=== PATIENT | female | born 1945 | race Caucasian/White ===

== ENCOUNTER 2020-05-02 07:06 | Day surgery (SDC) | payer MEDICARE, SELFPAY ==
[2020-04-27 14:08] VITALS: BMI 22.3
--- NOTE | 2020-04-28 07:51 | MHC.SHP ---
Pre-Procedural Eval Section A The patient is an INPATIENT: No The History & Physical has been completed within 30 days and I have reviewed it.: Yes Section B Chief Complaint: Cataract Right Eye Allergies: Allergies Allergy/AdvReac Type Severity Reaction Status Date / Time Penicillins [PENICILLINS] Allergy Unknown RASH Verified 04/27/20 14:11 Plan Diagnosis/Plan: Unchanged Patient has been examined and remains a candidate for the planned procedure
--- NOTE | 2020-04-29 09:16 | HO.ANESPROP2 ---
Documented by User: Rosalba Gandhi 04/29/20 14:06 HPI - Anesthesia Eval Consult details Narrative: 74yo F for cataract PCP cleared [facility] Past Medical History Medical History Elevated cholesterol Family history of anesthesia complication HTN (hypertension) Osteoporosis Functional capacity: independent ambulation (daily exercise for 30-45min without CP/SOB) Surgical History Surgical History Hx of colonoscopy Hx of rotator cuff surgery Hx of tonsillectomy Hx of tubal ligation Social History Social History Smoking Status: Former smoker Smoked in Last 30 Days: No Smoking Quit Date: age23 Use of substances other than those prescribed or required for medical reasons: No Have you been hit, kicked, punched, or otherwise hurt by someone within the past year? If so, by whom?: No Advance Directives Information Provided: No Recently lost weight without trying: No Meds Allergies Allergy/AdvReac Type Severity Reaction Status Date / Time Penicillins [PENICILLINS] Allergy Unknown RASH Verified 04/27/20 14:11 Home Medications Medication Instructions Recorded Confirmed Type alendronate [Fosamax] 70 mg PO QWEEK 04/27/20 04/27/20 History atorvastatin 20 mg PO BEDTIME 04/27/20 04/27/20 History cholecalciferol (vitamin D3) 25 mcg PO QPM 04/27/20 04/27/20 History [Vitamin D3] irbesartan 1 tab PO DAILY 04/27/20 04/27/20 History loratadine [Claritin] 10 mg PO DAILY PRN 04/27/20 04/27/20 History [id number] 1 tab PO DAILY 04/27/20 04/27/20 History [Centrum Silver] Exam Exam Date and Time: April 29, 2020 0916 Height,Weight and Vital Signs: Height 5 ft 4 in Weight 58.967 kg Pertinent Lab Results Pertinent Lab Results: 04/27/20: CBC, Lytes, BUN, Creat all WNL Assessment and Plan Assessment Anesthesia Assessment: Chart Reviewed Documented by User: Ghada Reich 05/02/20 07:57 PMF Past Medical History Medical History Elevated cholesterol Family history of anesthesia complication HTN (hypertension) Osteoporosis Surgical History Surgical History Hx of colonoscopy Hx of rotator cuff surgery Hx of tonsillectomy Hx of tubal ligation Social History Social History Smoking Status: Former smoker Smoked in Last 30 Days: No Smoking Quit Date: age23 Use of substances other than those prescribed or required for medical reasons: No Have you been hit, kicked, punched, or otherwise hurt by someone within the past year? If so, by whom?: No Advance Directives Information Provided: No Recently lost weight without trying: No Meds Allergies Allergy/AdvReac Type Severity Reaction Status Date / Time Penicillins [PENICILLINS] Allergy Unknown RASH Verified 04/27/20 14:11 Home Medications Medication Instructions Recorded Confirmed Type alendronate [Fosamax] 70 mg PO QWEEK 04/27/20 04/27/20 History atorvastatin 20 mg PO BEDTIME 04/27/20 04/27/20 History cholecalciferol (vitamin D3) 25 mcg PO QPM 04/27/20 04/27/20 History [Vitamin D3] irbesartan 1 tab PO DAILY 04/27/20 04/27/20 History loratadine [Claritin] 10 mg PO DAILY PRN 04/27/20 04/27/20 History [id number] 1 tab PO DAILY 04/27/20 04/27/20 History [Centrum Silver] Exam Airway Mallampati Class: II TM Dist: >3cm Neck ROM: Full Heart: RRR Lungs: CTA BL Assessment and Plan Final Anesthetic Review NPO: Yes ASA Class: II Final Preanesthetic Review: Meds/Allgs Chart Reviewed and Consent Obtained/Reviewed Patient Risk: Intermediate Procedure Risk: Low Anesthetic Plan Anesthetic Plan: MAC: Disposition: Standard PACU
[2020-05-02 07:50] VITALS: BP 186/78; PULSE 76; RESP 16; TEMP 36.9; O2SAT 98
[2020-05-02] MEDS: Tetracaine HCl/PF 0.5% Oph Sol 4 ML DROPS 1 DROP EYE-RIGHT (08:04)
[2020-05-02] MEDS: Tropicamide 1 % Ophth Sol 3 ML BTL 1 DROP EYE-RIGHT ×3 (08:07→08:16)
[2020-05-02] MEDS: Lactated Ringers 500 ML 50 ML IV (08:08)
--- NOTE | 2020-05-02 08:47 | HO.PNOPHT ---
Ophthalmology Procedure Procedure Ophthalmology Viscoelastic: Beverly Breaux Dual Pack Pro Ophthalmology Lenses: TECNIS [id number] (17.5) Procedure Notes: PREOPERATIVE DIAGNOSIS: Decreased visual acuity right eye secondary to cataract POSTOPERATIVE DIAGNOSIS: Same PROCEDURE: Right cataract extraction with intraocular lens insertion SURGEON: Jaquan Flanagan M.D. ANESTHESIA: Topical/MAC ESTIMATED BLOOD LOSS: None COMPLICATIONS: None After obtaining informed consent, the patient was brought to the operating room suite and placed in the supine position. After adequate sedation per anesthesia, topical drops of Tetracaine were given to the right eye. The eye was then prepped and draped in the usual sterile fashion. The operating room microscope was then positioned over the operative eye and a lid speculum placed. A paracentesis was created. Viscoelastic was then instilled into the anterior chamber. A three plane incision was then created temporally, utilizing a 2.85 mm keratome. Capsulotomy forceps were then utilized to create a circular tear capsulotomy. Hydrodissection and hydrodelineation were carried out until adequate mobilization of the nucleus occurred. Phacoemulsification was then utilized to remove the dense central nucleus followed by removal of the cortical material utilizing the automated aspiration irrigation unit. Viscoelastic was instilled into the posterior capsular bag followed by placement of a posterior chamber intraocular lens without difficulty. The residual Viscoelastic was then removed utilizing the automated IA machine. The wound was checked and found to be watertight. The patient tolerated the procedure well and the lid speculum was removed. Intracameral injection of Vigamox 0.1 mL followed by a subtenon injection of Kenalog-40 0.2 mL were administered. The patient will be seen in the a.m.
== END 2020-05-02 09:15 | disposition home or self-care (01) ==
PROVIDERS: PCP Internal Medicine; Visit Provider Ophthalmology
PROC: (CPT 66985; principal; 2020-05-02 08:40)
DX: H25.11 Age-related nuclear cataract, right eye (principal); H54.7 Unspecified visual loss; H40.009 Preglaucoma, unspecified, unspecified eye; I10 Essential (primary) hypertension; M81.0 Age-related osteoporosis without current pathological fracture; Z79.899 Other long term (current) drug therapy; Z87.891 Personal history of nicotine dependence; Z88.0 Allergy status to penicillin
CPT/HCPCS: 66984; J2250; J3010; J3300; V2632

== ENCOUNTER 2020-05-16 06:37 | Day surgery (SDC) | payer MEDICARE, SELFPAY ==
--- NOTE | 2020-05-12 08:15 | MHC.SHP ---
Pre-Procedural Eval Section A The patient is an INPATIENT: No The History & Physical has been completed within 30 days and I have reviewed it.: Yes Section B Chief Complaint: Cataract Left Eye Allergies: Allergies Allergy/AdvReac Type Severity Reaction Status Date / Time Penicillins [PENICILLINS] Allergy Unknown RASH Verified 04/27/20 14:11 Plan Diagnosis/Plan: Unchanged Patient has been examined and remains a candidate for the planned procedure
--- NOTE | 2020-05-13 08:43 | HO.ANESPROP2 ---
Documented by User: Rosalba Gandhi 05/13/20 14:02 HPI - Anesthesia Eval Consult details Narrative: 74yo F for cataract PCP cleared 1st eye 05/02/20: [facility] PENDING S[facility] TO [facility] Past Medical History Medical History Elevated cholesterol Family history of anesthesia complication HTN (hypertension) Osteoporosis Surgical History Surgical History Hx of colonoscopy Hx of rotator cuff surgery Hx of tonsillectomy Hx of tubal ligation Social History Social History Smoking Status: Former smoker Advance Directives: No Meds Allergies Allergy/AdvReac Type Severity Reaction Status Date / Time Penicillins [PENICILLINS] Allergy Unknown RASH Verified 04/27/20 14:11 Home Medications Medication Instructions Recorded Confirmed Type alendronate [Fosamax] 70 mg PO QWEEK 04/27/20 04/27/20 History atorvastatin 20 mg PO BEDTIME 04/27/20 04/27/20 History cholecalciferol (vitamin D3) 25 mcg PO QPM 04/27/20 04/27/20 History [Vitamin D3] irbesartan 1 tab PO DAILY 04/27/20 04/27/20 History loratadine [Claritin] 10 mg PO DAILY PRN 04/27/20 04/27/20 History [id number]-[id number]-[id number] 1 tab PO DAILY 04/27/20 04/27/20 History [Centrum Silver] Exam Exam Date and Time: May 13, 2020 0843 Pertinent Lab Results Pertinent Lab Results: 04/27/20: CBC, Lytes, BUN, Creat all WNL Assessment and Plan Assessment Anesthesia Assessment: Chart Reviewed Documented by User: Ghada Reich 05/16/20 07:22 PENDING SALE TO [facility] Past Medical History Medical History Elevated cholesterol Family history of anesthesia complication HTN (hypertension) Osteoporosis Surgical History Surgical History Hx of colonoscopy Hx of rotator cuff surgery Hx of tonsillectomy Hx of tubal ligation Social History Social History Smoking Status: Former smoker Advance Directives: No Meds Allergies Allergy/AdvReac Type Severity Reaction Status Date / Time Penicillins [PENICILLINS] Allergy Unknown RASH Verified 04/27/20 14:11 Home Medications Medication Instructions Recorded Confirmed Type alendronate [Fosamax] 70 mg PO QWEEK 04/27/20 04/27/20 History atorvastatin 20 mg PO BEDTIME 04/27/20 04/27/20 History cholecalciferol (vitamin D3) 25 mcg PO QPM 04/27/20 04/27/20 History [Vitamin D3] irbesartan 1 tab PO DAILY 04/27/20 04/27/20 History loratadine [Claritin] 10 mg PO DAILY PRN 04/27/20 04/27/20 History [id number]-xiqfwmlg-[id number] 1 tab PO DAILY 04/27/20 04/27/20 History [Centrum Silver] Exam Airway Mallampati Class: II TM Dist: >3cm Neck ROM: Full Heart: RRR Lungs: CTA BL Assessment and Plan Assessment Anesthesia Assessment: Anesthesia Plan Discussed and Chart Reviewed Final Anesthetic Review NPO: Yes ASA Class: II Final Preanesthetic Review: Meds/Allgs Chart Reviewed and Consent Obtained/Reviewed Patient Risk: Low Procedure Risk: Low Anesthetic Plan Anesthetic Plan: MAC: Disposition: Standard PACU
[2020-05-16] MEDS: Tetracaine HCl/PF 0.5% Oph Sol 4 ML DROPS 1 DROP EYE-LEFT (07:31)
[2020-05-16] MEDS: Tropicamide 1 % Ophth Sol 3 ML BTL 1 DROP EYE-LEFT ×3 (07:33→07:40)
[2020-05-16 07:46] VITALS: BMI 23.2
[2020-05-16 07:50] VITALS: BP 168/83; PULSE 81; RESP 20; TEMP 36.3; O2SAT 97
--- NOTE | 2020-05-16 08:41 | HO.PNOPHT ---
Ophthalmology Procedure Procedure Ophthalmology Viscoelastic: Healjulian Astorgat Dual Pack Pro Ophthalmology Lenses: TECNIS [id number] (20.5) Procedure Notes: PREOPERATIVE DIAGNOSIS: Decreased visual acuity left eye secondary to cataract POSTOPERATIVE DIAGNOSIS: Same PROCEDURE: Left cataract extraction with intraocular lens insertion SURGEON: Jaquan Flanagan M.D. ANESTHESIA: Topical/MAC ESTIMATED BLOOD LOSS: None COMPLICATIONS: None After obtaining informed consent, the patient was brought to the operation room suite and placed in the supine position. After adequate sedation per anesthesia, topical drops of Tetracaine were given to the left eye. The eye was then prepped and draped in the usual sterile fashion. The operating room microscope was then positioned over the operative eye and a lid speculum placed. A paracentesis was created. Viscoelastic was then instilled into the anterior chamber. A three plane incision was then created temporally, utilizing a 2.85 mm keratome. Capsulotomy forceps were then utilized to create a circular tear capsulotomy. Hydrodissection and hydrodelineation were carried out until adequate mobilization of the nucleus occurred. Phacoemulsification was then utilized to remove the dense central nucleus followed by removal of the cortical material utilizing the automated aspiration irrigation unit. Viscoat elastic was instilled into the posterior capsular bag followed by placement of a posterior chamber intraocular lens without difficulty. The residual Viscoat elastic was then removed utilizing the automated IA machine. The wound was check and found to be watertight. The patient tolerated the procedure well and the lid speculum was removed. Intracameral injection of Vigamox 0.1 mL followed by a subtenon injection of Kenalog-40 0.2 mL were administered. The patient will be seen in the a.m.
[2020-05-16 08:43] VITALS: BP 133/64; PULSE 68; RESP 16; TEMP 36.1; O2SAT 99
== END 2020-05-16 09:28 | disposition home or self-care (01) ==
PROVIDERS: PCP Internal Medicine; Visit Provider Ophthalmology
PROC: (CPT 66985; principal; 2020-05-16 08:30)
DX: H25.12 Age-related nuclear cataract, left eye (principal); H54.7 Unspecified visual loss; I10 Essential (primary) hypertension; M81.0 Age-related osteoporosis without current pathological fracture; Z83.511 Family history of glaucoma; Z79.899 Other long term (current) drug therapy; Z88.0 Allergy status to penicillin; Z87.891 Personal history of nicotine dependence
CPT/HCPCS: 66984; J2250; J3010; J3300; V2632

== ENCOUNTER 2020-08-10 07:02 | Outpatient (REF) | payer MEDICARE, SELFPAY ==
[2020-08-10 11:22] LABS: Hematocrit 40.8 % (37-47); Hemoglobin 13.7 g/dl (12.0-16.0); Mean Corpuscular HGB Conc 33.6 g/dl (31.0-35.0); Mean Corpuscular Hemoglobin 31.7 pg (27.0-33.0); Mean Corpuscular Volume 94.4 fL (80-98); Mean Platelet Volume 11.1 fL (9.4-12.3); Platelet Count 252 X10*3/uL (160-400); Red Blood Count 4.32 X10*6/uL (4.20-5.50); White Blood Count 7.1 X10*3/uL (4.8-10.8)
[2020-08-10 11:22] LABS: Glucose Urine UA NEG (NEG); Leukocyte Esterase Urine NEG (NEG); Nitrite Urine NEG (NEG); PH 7.5 (5.0-8.0); Urine Blood NEG (NEG); Urine Ketones NEG (NEG); Urine Protein NEG (NEG-TRACE)
[2020-08-10 11:24] LABS: Appearance Urine CLEAR; Color Urine YELLOW
[2020-08-10 11:42] LABS: RBC Urine 0 /HPF (0); Squamous Epithelial Cell Urine TRACE /LPF; WBC Urine 0 /HPF (0-4)
[2020-08-10 12:00] LABS: Alanine Aminotransferase 24 U/L (0-31); Albumin Level 4.4 g/dL (3.5-5.0); Alkaline Phosphatase 70 U/L (39-117); Anion Gap 14 (12-20); Aspartate Amino Transferase 24 U/L (5-31); Bilirubin Total 0.9 mg/dL (0.0-1.0); Blood Urea Nitrogen 11 mg/dL (9-16); Carbon Dioxide 27 mmol/L (22-29); Chloride 95 mmol/L (96-108); Cholesterol 207 mg/dL; Estimated Glomerular Filt Rate > 60; Glucose Fasting 77 mg/dL (60-99); HDL Cholesterol 85 mg/dL; LDL Cholesterol Calculated 107 mg/dl; Potassium 4.2 mmol/L (3.3-5.1); Sodium 132 mmol/L (135-145); Total Protein 7.1 g/dL (6.5-8.0); Triglycerides 78 mg/dL
[2020-08-10 12:05] LABS: TSH reflex Free T4 1.52 uIU/mL (0.32-4.0); Vitamin D 25-OH Total 54.3 ng/mL (>30)
== END 2020-08-10 07:03 | disposition home or self-care (01) ==
LOC: HO.HMGCLDS 07:02
PROVIDERS: PCP Internal Medicine; Visit Provider Internal Medicine
DX: I10 Essential (primary) hypertension (principal); M81.0 Age-related osteoporosis without current pathological fracture; E78.00 Pure hypercholesterolemia, unspecified; E55.9 Vitamin D deficiency, unspecified
CPT/HCPCS: 36415; 80053; 80061; 81001; 82306; 84443; 85027

== ENCOUNTER 2020-09-02 07:12 | Outpatient (REF) | payer MEDICARE, SELFPAY ==
[2020-09-02 12:28] LABS: Anion Gap 14 (12-20); Blood Urea Nitrogen 10 mg/dL (9-16); Carbon Dioxide 28 mmol/L (22-29); Chloride 99 mmol/L (96-108); Estimated Glomerular Filt Rate > 60; Glucose Random 83 mg/dL (60-115); Potassium 4.3 mmol/L (3.3-5.1); Sodium 137 mmol/L (135-145)
== END 2020-09-02 07:13 | disposition home or self-care (01) ==
LOC: HO.HMGCLDS 07:12
PROVIDERS: PCP Internal Medicine; Visit Provider Internal Medicine
DX: E87.1 Hypo-osmolality and hyponatremia (principal)
CPT/HCPCS: 36415; 80048

== ENCOUNTER 2020-12-16 07:35 | Outpatient (REF) | payer MEDICARE, SELFPAY ==
[2020-12-16 12:36] LABS: Anion Gap 14 (12-20); Blood Urea Nitrogen 10 mg/dL (9-16); Calcium 8.8 mg/dL (8.4-10.2); Carbon Dioxide 25 mmol/L (22-29); Chloride 100 mmol/L (96-108); Estimated Glomerular Filt Rate > 60; Glucose Random 80 mg/dL (60-115); Potassium 4.6 mmol/L (3.3-5.1); Sodium 134 mmol/L (135-145)
== END 2020-12-16 07:36 | disposition home or self-care (01) ==
LOC: HO.HMGCLDS 07:35
PROVIDERS: PCP Internal Medicine; Visit Provider Internal Medicine
DX: E87.1 Hypo-osmolality and hyponatremia (principal); E78.00 Pure hypercholesterolemia, unspecified; I10 Essential (primary) hypertension; M81.0 Age-related osteoporosis without current pathological fracture
CPT/HCPCS: 36415; 80048

== ENCOUNTER 2021-03-28 14:58 | Outpatient (REF) | payer MEDICARE, SELFPAY ==
[2021-03-28 17:00] LABS: MANUAL DIFF FLAG NO
[2021-03-28 17:06] LABS: Basophils Percent Auto 0.5 % (0-2); Eosinophils Absolute Auto 0.1 X10*3/uL (0.0-0.4); Eosinophils Percent Auto 0.6 % (0-4); Hematocrit 39.4 % (37-47); Hemoglobin 13.2 g/dl (12.0-16.0); Imm Gran Abs Auto 0.03 X10*3/uL (0.00-0.03); Imm Gran Pct Auto 0.4 % (0.0-0.4); Lymphocytes Absolute Auto 1.7 X10*3/uL (1.2-4.9); Lymphocytes Percent Auto 20.6 % (20-40); Mean Corpuscular HGB Conc 33.5 g/dl (31.0-35.0); Mean Corpuscular Hemoglobin 30.8 pg (27.0-33.0); Mean Corpuscular Volume 91.8 fL (80-98); Mean Platelet Volume 12.3 fL (9.4-12.3); Monocytes Absolute Auto 0.7 X10*3/uL (0.1-1.2); Monocytes Percent Auto 8.4 % (2-11); Neutrophils Absolute Auto 5.7 X10*3/uL (2.0-8.3); Neutrophils Percent Auto 69.5 % (45-73); Platelet Count 231 X10*3/uL (160-400); Red Blood Count 4.29 X10*6/uL (4.20-5.50); Red Cell Distribution Width 11.9 % (11.0-16.0); White Blood Count 8.3 X10*3/uL (4.8-10.8)
[2021-03-28 17:28] LABS: Alanine Aminotransferase 20 U/L (0-31); Albumin Level 4.4 g/dL (3.5-5.0); Alkaline Phosphatase 75 U/L (39-117); Anion Gap 14 (12-20); Aspartate Amino Transferase 22 U/L (5-31); Bilirubin Total 0.3 mg/dL (0.0-1.0); Blood Urea Nitrogen 13 mg/dL (9-16); Calcium 9.4 mg/dL (8.4-10.2); Carbon Dioxide 24 mmol/L (22-29); Chloride 100 mmol/L (96-108); Estimated Glomerular Filt Rate > 60; Glucose Random 82 mg/dL (60-115); Sodium 134 mmol/L (135-145); Total Protein 6.7 g/dL (6.5-8.0)
== END 2021-03-28 14:59 | disposition home or self-care (01) ==
LOC: HO.HMGCLDS 14:58
PROVIDERS: PCP Internal Medicine; Visit Provider Nurse Practitioner Family
DX: Z01.818 Encounter for other preprocedural examination (principal)
CPT/HCPCS: 36415; 80053; 85025

== ENCOUNTER 2021-04-04 10:29 | Outpatient (REF) | payer MEDICARE, SELFPAY ==
--- NOTE | ~2021-04-04 | MM_ITS ---
EXAMINATION: MM SCREENING DIGITAL BREAST TOMOSYNTHESIS, BILATERAL CLINICAL INFORMATION: Screening. Asymptomatic. The lifetime risk of breast cancer based on the Tyrer-Cuzick Model is 3%. COMPARISON: Outside mammography: 02/25/2020, 02/23/2019, 02/18/2018 ([place]) TECHNIQUE: Digital breast tomosynthesis is performed in both the craniocaudal and mediolateral oblique views along with computer-aided detection (CAD). Synthesized 2D images are generated from the tomosynthesis. FINDINGS: There are scattered areas of fibroglandular density (ACR BI-RADS breast composition Category b). There are no significant masses, abnormal calcifications, or other abnormalities. The axilla and skin contours are unremarkable. No significant changes from prior outside exams. MM/MM tomosynthesis screening BI IMPRESSION: There are no significant changes from prior study. ASSESSMENT: BI-RADS 1: Negative RECOMMENDATION: Routine annual mammography screening. This patient's information was entered into a reminder system with a target due date for their next mammogram.
== END 2021-04-04 10:30 | disposition home or self-care (01) ==
LOC: HO.MAMMO 10:29
PROVIDERS: Visit Provider Internal Medicine
DX: Z12.31 Encounter for screening mammogram for malignant neoplasm of breast (principal)
CPT/HCPCS: 77063; 77067

== ENCOUNTER 2021-06-21 09:57 | Outpatient (REF) | payer MEDICARE, SELFPAY ==
[2021-06-21 12:23] LABS: Anion Gap 11 (12-20); Blood Urea Nitrogen 11 mg/dL (9-16); Calcium 9.5 mg/dL (8.4-10.2); Carbon Dioxide 28 mmol/L (22-29); Chloride 98 mmol/L (96-108); Estimated Glomerular Filt Rate > 60; Glucose Random 90 mg/dL (60-115); Potassium 4.1 mmol/L (3.3-5.1); Sodium 133 mmol/L (135-145)
== END 2021-06-21 09:58 | disposition home or self-care (01) ==
LOC: HO.HMGCLDS 09:57
PROVIDERS: PCP Internal Medicine; Visit Provider Internal Medicine
DX: E87.1 Hypo-osmolality and hyponatremia (principal)
CPT/HCPCS: 36415; 80048

== ENCOUNTER 2021-11-28 06:04 | Outpatient (REF) | payer MEDICARE, SELFPAY ==
[2021-11-28 11:33] LABS: Hematocrit 40.3 % (37.0-47.0); Hemoglobin 13.4 g/dl (12.0-16.0); Mean Corpuscular HGB Conc 33.3 g/dl (31.0-35.0); Mean Corpuscular Hemoglobin 30.5 pg (27.0-33.0); Mean Corpuscular Volume 91.8 fL (80.0-98.0); Mean Platelet Volume 12.2 fL (9.4-12.3); Platelet Count 211 X10*3/uL (160-400); Red Blood Count 4.39 X10*6/uL (4.20-5.50); Red Cell Distribution Width 12.4 % (11.0-16.0); White Blood Count 5.9 X10*3/uL (4.8-10.8)
[2021-11-28 11:44] LABS: Alanine Aminotransferase 21 U/L (0-31); Albumin Level 4.2 g/dL (3.5-5.0); Alkaline Phosphatase 77 U/L (39-117); Anion Gap 12 (12-20); Aspartate Amino Transferase 24 U/L (5-31); Bilirubin Total 0.5 mg/dL (0.0-1.0); Blood Urea Nitrogen 11 mg/dL (9-16); Calcium 9.5 mg/dL (8.4-10.2); Carbon Dioxide 27 mmol/L (22-29); Chloride 101 mmol/L (96-108); Cholesterol 177 mg/dL; Estimated Glomerular Filt Rate > 60; Glucose Fasting 92 mg/dL (60-99); HDL Cholesterol 69 mg/dL; LDL Cholesterol Calculated 93 mg/dl; Potassium 4.8 mmol/L (3.3-5.1); Sodium 135 mmol/L (135-145); Total Protein 6.9 g/dL (6.5-8.0); Triglycerides 79 mg/dL
[2021-11-28 12:07] LABS: TSH reflex Free T4 1.64 uIU/mL (0.32-4.0); Vitamin D 25-OH Total 37.2 ng/mL (>30)
== END 2021-11-28 06:05 | disposition home or self-care (01) ==
LOC: HO.HMGCLDS 06:04
PROVIDERS: Visit Provider Internal Medicine
DX: E55.9 Vitamin D deficiency, unspecified (principal); E78.00 Pure hypercholesterolemia, unspecified; E87.1 Hypo-osmolality and hyponatremia; I10 Essential (primary) hypertension
CPT/HCPCS: 36415; 80053; 80061; 82306; 84443; 85027

== ENCOUNTER 2022-04-24 09:20 | Outpatient (REF) | payer MEDICARE, SELFPAY ==
[2022-04-24 11:55] LABS: Anion Gap 16 (12-20); Blood Urea Nitrogen 10 mg/dL (9-16); Calcium 9.3 mg/dL (8.4-10.2); Carbon Dioxide 26 mmol/L (22-29); Chloride 98 mmol/L (96-108); Estimated Glomerular Filt Rate > 60; Glucose Random 87 mg/dL (60-115); Potassium 4.5 mmol/L (3.3-5.1); Sodium 135 mmol/L (135-145)
== END 2022-04-24 09:21 | disposition home or self-care (01) ==
LOC: HO.HMGCLDS 09:20
PROVIDERS: PCP Internal Medicine; Visit Provider Internal Medicine
DX: E87.1 Hypo-osmolality and hyponatremia (principal)
CPT/HCPCS: 36415; 80048

== ENCOUNTER 2022-05-09 07:44 | Outpatient (REF) | payer MEDICARE, SELFPAY ==
--- NOTE | ~2022-05-09 | MM_ITS ---
EXAMINATION: MM SCREENING DIGITAL BREAST TOMOSYNTHESIS, BILATERAL CLINICAL INFORMATION: Screening. Asymptomatic. COMPARISON: Mammography: 04/04/2021, outside mammography 02/25/2020, 03/05/2019, 02/23/2019, 02/18/2018 ([place]). TECHNIQUE: Digital breast tomosynthesis is performed in both the craniocaudal and mediolateral oblique views along with computer-aided detection (CAD). Synthesized 2D images are generated from the tomosynthesis. FINDINGS: There are scattered areas of fibroglandular density (ACR BI-RADS breast composition Category b). There are no significant masses, abnormal calcifications, or other abnormalities. Parenchymal pattern is similar to prior studies. There is no developing density or architectural abnormality. The axilla and skin contours are unremarkable. No significant changes. MM/MM tomosynthesis screening BI IMPRESSION: No mammographic evidence of malignancy. ASSESSMENT: BI-RADS 1: Negative RECOMMENDATION: Routine annual mammography screening. This patient's information was entered into a reminder system with a target due date for their next mammogram.
== END 2022-05-09 07:45 | disposition home or self-care (01) ==
LOC: HO.MAMMO 07:44
PROVIDERS: PCP Internal Medicine; Visit Provider Internal Medicine
DX: Z12.31 Encounter for screening mammogram for malignant neoplasm of breast (principal)
CPT/HCPCS: 77063; 77067

== ENCOUNTER 2022-10-12 06:42 | Outpatient (REF) | payer MEDICARE, SELFPAY ==
[2022-10-12 11:30] LABS: MANUAL DIFF FLAG NO
[2022-10-12 11:58] LABS: Basophils Absolute Auto 0.1 X10*3/uL (0.0-0.2); Basophils Percent Auto 0.9 % (0-2); Eosinophils Absolute Auto 0.2 X10*3/uL (0.0-0.4); Eosinophils Percent Auto 3.2 % (0-4); Hematocrit 40.1 % (37.0-47.0); Hemoglobin 13.4 g/dl (12.0-16.0); Imm Gran Abs Auto 0.02 X10*3/uL (0.00-0.03); Imm Gran Pct Auto 0.3 % (0.0-0.4); Lymphocytes Absolute Auto 1.7 X10*3/uL (1.2-4.9); Lymphocytes Percent Auto 29.4 % (20-40); Mean Corpuscular HGB Conc 33.4 g/dl (31.0-35.0); Mean Corpuscular Hemoglobin 30.4 pg (27.0-33.0); Mean Corpuscular Volume 90.9 fL (80.0-98.0); Mean Platelet Volume 12.2 fL (9.4-12.3); Monocytes Absolute Auto 0.7 X10*3/uL (0.1-1.2); Monocytes Percent Auto 12.5 % (2-11); Neutrophils Absolute Auto 3.1 x10*3/uL (2.0-8.3); Neutrophils Percent Auto 53.7 % (45-73); Platelet Count 223 X10*3/uL (160-400); Red Blood Count 4.41 X10*6/uL (4.20-5.50); Red Cell Distribution Width 12.1 % (11.0-16.0); White Blood Count 5.9 X10*3/uL (4.8-10.8)
[2022-10-12 12:30] LABS: Alanine Aminotransferase 17 U/L (0-31); Albumin Level 4.3 g/dL (3.5-5.0); Alkaline Phosphatase 90 U/L (39-117); Anion Gap 11 (12-20); Aspartate Amino Transferase 22 U/L (5-31); Bilirubin Total 0.9 mg/dL (0.0-1.0); Blood Urea Nitrogen 11 mg/dL (9-16); Calcium 9.4 mg/dL (8.4-10.2); Carbon Dioxide 28 mmol/L (22-29); Chloride 102 mmol/L (96-108); Cholesterol 171 mg/dL; Estimated Glomerular Filt Rate > 60; Glucose Fasting 90 mg/dL (60-99); HDL Cholesterol 62 mg/dL; LDL Cholesterol Calculated 93 mg/dl; Potassium 4.2 mmol/L (3.3-5.1); Sodium 137 mmol/L (135-145); Total Protein 6.7 g/dL (6.5-8.0); Triglycerides 82 mg/dL; Vitamin D 25-OH Total 40.3 ng/mL (>30)
== END 2022-10-12 06:43 | disposition home or self-care (01) ==
LOC: HO.HMGCLDS 06:42
PROVIDERS: PCP Internal Medicine; Visit Provider Internal Medicine
DX: E78.00 Pure hypercholesterolemia, unspecified (principal); I10 Essential (primary) hypertension
CPT/HCPCS: 36415; 80053; 80061; 82306; 85025

== ENCOUNTER 2023-01-25 12:58 | Emergency (ER) | payer OTHER, MEDICARE, SELFPAY ==
--- NOTE | ~2023-01-25 | XR_ITS ---
EXAMINATION: XR LUMBOSACRAL SPINE CLINICAL INFORMATION: Low back pain COMPARISON: None available. TECHNIQUE: Three views of the lumbosacral spine. FINDINGS: There is curvature of the lumbar sacral spine to the right. Bone alignment is otherwise normal. No lumbar spine fracture is seen. There is a mild T12 compression fracture. There is degenerative disc disease at L5-S1. There is lower lumbar spine facet arthritis. There is evidence of atherosclerotic disease. XR/XR lumbar spine 2-3V IMPRESSION: Mild T12 vertebral body compression fracture. No lumbar spine fracture. Degenerative changes of the lower lumbar spine.
--- NOTE | ~2023-01-25 | XR_ITS ---
EXAMINATION: XR THORACIC SPINE CLINICAL INFORMATION: T12 fracture. COMPARISON: Lumbar spine radiographs from today TECHNIQUE: 3 views of the thoracic spine were obtained. FINDINGS: The T12 vertebral body compression deformity is again noted, somewhat better seen on the prior lumbar spine radiographs. Remaining thoracic vertebral bodies appear intact with mild degenerative change throughout. There is disc space narrowing and mild endplate sclerosis. The paravertebral soft tissues are unremarkable. The visualized lungs are clear. XR/XR thoracic spine 3V IMPRESSION: The T12 vertebral body compression deformity is again noted, somewhat better seen on the prior lumbar spine radiographs. Alignment maintained throughout the thoracic spine with mild degenerative change.
[2023-01-25 13:14] VITALS: BP 146/84; PULSE 72; O2SAT 96
[2023-01-25 13:17] VITALS: BP 174/86; PULSE 69; RESP 18; TEMP 36.7; O2SAT 95; BMI 25.8
--- NOTE | 2023-01-25 13:26 | PC.NURSE ---
c-spnie cleared by provider, verbal xray order placed- pt awaiting xray, son who is from [facility] at bedside.
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
[2023-01-25] MEDS: Acetaminophen 325 MG TABLET 650 MG PO (15:26)
[2023-01-25 15:29] VITALS: BP 179/79; PULSE 77; RESP 18; TEMP 36.6; O2SAT 98
--- NOTE | 2023-01-25 15:30 | PC.NURSE ---
patient a&ox3, vss, son at bedside, pt medicated for 5/10 pain- pt states pain is at a 5 if shes not moving, any movement she has sharp pain which increases to 10/10, call ayon within reach, will continue to monitor.
== END 2023-01-25 18:14 | disposition home or self-care (01) ==
PROVIDERS: Emergency Provider Emergency Medicine; PCP Internal Medicine
DX: Z04.1 Encounter for examination and observation following transport accident (principal); M54.50 Low back pain, unspecified; M48.54XA Collapsed vertebra, not elsewhere classified, thoracic region, initial encounter for fracture; I10 Essential (primary) hypertension; E78.00 Pure hypercholesterolemia, unspecified
CPT/HCPCS: 72072; 72100; 99283; 99284

== ENCOUNTER 2023-02-12 11:24 | Outpatient (AMB) | payer OTHER, MEDICARE, SELFPAY ==
[2023-02-12 11:41] VITALS: BP 146/84; PULSE 78; O2SAT 98; BMI 23.3
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
== END 2023-02-12 12:43 | disposition home or self-care (01) ==
PROVIDERS: PCP Internal Medicine; Visit Provider Internal Medicine
DX: M81.0 Age-related osteoporosis without current pathological fracture (principal); I10 Essential (primary) hypertension
CPT/HCPCS: 99214

== ENCOUNTER 2023-02-15 06:02 | Outpatient (REF) | payer MEDICARE, SELFPAY ==
[2023-02-15 12:31] LABS: Alanine Aminotransferase 22 U/L (0-31); Albumin Level 4.5 g/dL (3.5-5.0); Alkaline Phosphatase 125 U/L (39-117); Anion Gap 12 (12-20); Aspartate Amino Transferase 23 U/L (5-31); Bilirubin Total 0.7 mg/dL (0.0-1.0); Blood Urea Nitrogen 10 mg/dL (9-16); Calcium 10.2 mg/dL (8.4-10.2); Carbon Dioxide 25 mmol/L (22-29); Chloride 101 mmol/L (96-108); Cholesterol 163 mg/dL; Estimated Glomerular Filt Rate > 60; Glucose Fasting 88 mg/dL (60-99); HDL Cholesterol 59 mg/dL; LDL Cholesterol Calculated 86 mg/dl; Potassium 4.1 mmol/L (3.3-5.1); Sodium 134 mmol/L (135-145); Total Protein 7.6 g/dL (6.5-8.0); Triglycerides 94 mg/dL
== END 2023-02-15 06:03 | disposition home or self-care (01) ==
LOC: HO.HMGCLDS 06:02
PROVIDERS: PCP Internal Medicine; Visit Provider Internal Medicine
DX: E78.00 Pure hypercholesterolemia, unspecified (principal); I10 Essential (primary) hypertension
CPT/HCPCS: 36415; 80053; 80061

== ENCOUNTER 2023-02-20 10:19 | Outpatient (REF) | payer MEDICARE, SELFPAY ==
--- NOTE | ~2023-02-20 | MM_ITS ---
EXAMINATION: BONE DENSITOMETRY CLINICAL INDICATION: Osteoporosis. COMPARISON: Previous BD dated 01/24/2016 and baseline BD dated 06/18/2006. TECHNIQUE: Using a [employer] DXA System (software version: 13.1) manufactured by [employer], dual-energy x-ray absorptiometry was performed of the lumbar spine and left hip. The images are of good technical quality. Summary results are attached. FINDINGS: LEFT FEMUR, NECK: Current: BMD 0.704 g/cm2, Z-score -0.3, T-score -2.4, osteopenia. Prior: BMD 0.754 g/cm2. Baseline: BMD 0.793 g/cm2. LEFT FEMUR, TOTAL: Current: BMD 0.748 g/cm2, Z-score -0.1, T-score -2.1, osteopenia, 0.9% increase from previous, 10.5% decrease from baseline (<5% change is not significant). Prior: BMD 0.741 g/cm2. Baseline: BMD 0.836 g/cm2. AP SPINE L1-L4: Current: BMD 0.877 g/cm2, Z-score -0.6, T-score -2.5, osteoporosis, 6.6% increase from previous, 6.3% decrease from baseline (<5% change is not significant). Prior: BMD 0.823 g/cm2. Baseline: BMD 0.936 g/cm2. IDENTIFIED RISK FACTORS: Menopause, history of fracture (adult). HISTORY OF FRACTURE: Spine. MEDICATIONS: Multivitamin, vitamin D. MM/XR DEXA axial skeleton IMPRESSION: 1. DIAGNOSIS: Severe osteoporosis based on the lowest T-score value of -2.5 in the lumbar spine and history of fracture of spine applying World Health Organization criteria. 2. 10-YEAR FRACTURE RISK PREDICTION, FRAX: According to the guidelines, FRAX calculation should only be performed on patients in the osteopenia bone density category. Therefore, FRAX was not performed on this patient. 3. Treatment Recommendations: NOF guidelines recommend consideration for treatment in postmenopausal women and men age 50 and older presenting with the following: -A hip or vertebral (clinical or morphometric) fracture. -T-score less than or equal to -2.5 at the femoral neck or spine after appropriate evaluation to exclude secondary causes. -Low bone mass at the hip or spine and a 10-year fracture probability by FRAX of greater than or equal to 3% for hip fracture or greater than or equal to 20% for major osteoporotic fracture based on the [place] adapted WHO algorithm. 4. Other Recommendations: All treatment decisions require clinical judgment and consideration of individual patient factors, including patient preferences, comorbidities, previous drug use, risk factors not captured in the FRAX model (e.g. frailty, falls, vitamin D deficiency, increased bone turnover, interval significant decline in bone density) and possible under or overestimation of fracture risk by FRAX. Additional medical evaluation for secondary cause of low bone mineral density may be appropriate. FUTURE SCAN RECOMMENDATION: People with diagnosed cases of osteoporosis or at high risk for fracture should have regular bone mineral density tests. For patients eligible for Medicare, routine testing is allowed once every 2 years. The testing frequency can be increased to one year for patients who have rapidly progressing disease, those who are receiving or discontinuing medical therapy to restore bone mass, or have additional risk factors.
== END 2023-02-20 10:20 | disposition home or self-care (01) ==
LOC: HO.MAMMO 10:19
PROVIDERS: PCP Internal Medicine; Visit Provider Internal Medicine
DX: Z13.820 Encounter for screening for osteoporosis (principal); Z78.0 Asymptomatic menopausal state; M81.0 Age-related osteoporosis without current pathological fracture
CPT/HCPCS: 77080

== ENCOUNTER → 2023-02-20 10:30 | Outpatient (BNV) | payer MEDICARE, SELFPAY | PROVIDERS: PCP Internal Medicine; Visit Provider Radiology Diagnostic Radiology | DX: M81.0 Age-related osteoporosis without current pathological fracture (principal); M85.89 Other specified disorders of bone density and structure, multiple sites | CPT/HCPCS: 77080 ==

== ENCOUNTER 2023-03-21 09:48 | Outpatient (AMB) | payer MEDICARE, SELFPAY ==
--- NOTE | 2023-03-21 10:23 | AM.OFFVISNUR ---
Intake Intake Visit Reasons: Prolia Intake Note: Pt arrived for Prolia injection as planned Allergies Penicillins [PENICILLINS] Allergy (Intermediate, Verified 02/12/23 11:56) RASH atorvastatin [From Lipitor] Adverse Reaction (Intermediate, Verified 02/12/23 11:56) knee pain Office Meds Prolia 60 mg/mL subcutaneous syringe Performing Provider: Vianca Moreno MD [facility] Administered by: Melia Bronson RN on 03/21/23 10:23 Dose Route Admin Location Dispensed Lot Number Expiration Date [facility] Biological Inspector 60 mg subcut left upper arm 1 mL [id number] 09/04/25 16489-017-23 AMGEN Comments: Pt supplied Coding Assessment & Plan Assessment & Plan Orders: Orders AMB Denosumab Injection Patient Supplied Today M81.0 - Age-related osteoporosis without current pathological fracture
== END 2023-03-21 11:17 | disposition home or self-care (01) ==
PROVIDERS: PCP Internal Medicine; Visit Provider Internal Medicine
DX: M81.0 Age-related osteoporosis without current pathological fracture (principal)
CPT/HCPCS: 96372; J0897

== ENCOUNTER 2023-04-16 08:14 | Outpatient (AMB) | payer MEDICARE, SELFPAY ==
[2023-04-16 08:20] VITALS: BP 126/64; PULSE 80; O2SAT 97; BMI 22.5
--- NOTE | 2023-04-16 08:20 | MHC.PC.OV ---
Vital Signs 04/16/23 08:20 Height 5 ft 4 in Weight 131 lb BMI 22.5 BP 126/64 Blood Pressure Location Lt brachial Position Sitting Pulse 80 Pulse Source Pulse Oximeter Pulse Oximetry (%) 97 Oxygen Delivery Method Room Air Intake Visit Reasons: 6m follow up Intake Note: Pt is here today for a follow up visit on BP. Allergies Penicillins [PENICILLINS] Allergy (Intermediate, Verified 04/16/23 08:26) RASH atorvastatin [From Lipitor] Adverse Reaction (Intermediate, Verified 04/16/23 08:26) knee pain Medication List - Last Reconciled 04/16/23 by Vianca Moreno MD amlodipine 2.5 mg PO BID cholecalciferol (vitamin D3) (Vitamin D3) 25 mcg PO QPM irbesartan 300 mg PO DAILY lidocaine 5% 1 patch topical DAILY loratadine (Claritin) 10 mg PO DAILY PRN itfbiqfrkqkj-tqbcbetf-awrzlk 1 tab PO DAILY Prolia (denosumab) 60 mg subcut [id number] NS rosuvastatin (Crestor) 5 mg PO DAILY Tobacco use date assessed: 04/16/23 HPI 6m follow up HPI Details Patient presents for the follow-up of hypertension hyperlipidemia and osteoporosis. Patient started Prolia injection and has been tolerating well. She is physically active 5 times a week [facility] Medical History Hyponatremia Mammogram normal Normal colonoscopy Vitamin D deficiency Family history of anesthesia complication Osteoporosis Elevated cholesterol HTN (hypertension) Surgical History H/O shoulder replacement Hx of tubal ligation Hx of colonoscopy Hx of tonsillectomy Hx of rotator cuff surgery Family History Father Cancer Mother Hypertension Social History Household Members Other:: , 4 children, 7 grandsons, 1 granddaughter Housing: House Unable to assess alcohol history related to: Unable to respond Patient Tobacco Use Status: Former Tobacco user e-Cigarette/Vaping Use: Never Used Second Hand Smoke Exposure: No Advance Directives Date on File: 05/03/20 Current occupational status: retired Cognitive needs: No Hearing needs: No Vision needs: No Questionnaire Thrive Questionnaire Date Thrive assessed: 10/17/22 AUDIT C Alcohol Use Questionnaire (AUDIT-C) 1. How often do you have a drink containing alcohol?: 2-4 times a month 2. How many drinks containing alcohol do you have on a typical day when you are drinking?: 1 or 2 3. How often do you have six or more drinks on one occasion?: Never Total Score: 2 NASEEM-7 AMB Questionnaire NASEEM-7 Date NASEEM - 7 assessed: 10/17/22 Source: Developed by Drs. Payam Levine, Cher Kincaid, Dimitrios Valenzuela and colleagues, with an educational ameena from [employer]. Review of Systems Const All systems reviewed & are unremarkable except as noted in HPI and below Reports no additional complaints Eyes Reports no additional complaints ENT Reports no additional complaints Card Reports no additional complaints Resp Reports no additional complaints GI Reports no additional complaints Reports no additional complaints Physical exam (Primary Care) Vital Signs: Last Vital Signs Pulse 80 04/16/23 08:20 BP 126/64 04/16/23 08:20 Pulse Ox 97 04/16/23 08:20 Oxygen Delivery Method Room Air 04/16/23 08:20 BMI result Body Mass Index 22.5 Tobacco/Smoking Status: Tobacco use Status Tobacco use date assessed 04/16/23 04/16/23 08:28 Patient Tobacco Use Status Former Tobacco user 04/16/23 08:28 e-Cigarette/Vaping Use Never Used 04/16/23 08:20 Thrive Assessment: Date of Thrive Assessment Date Thrive assessed 10/17/22 04/16/23 08:20 Const General: no acute distress HENMT Ears: hearing grossly normal bilaterally Neck Neck: Yes supple Resp Effort & Inspection: normal respiratory effort Auscultation: clear to auscultation bilaterally Cardio Rhythm: regular rhythm Heart sounds: S1 normal heart sound present and S2 normal heart sound present GI Inspection: Yes normal to inspection Palpation (GI): Soft to palpation Percussion: Yes normal to percussion Assessment and Plan Assessment & Plan (1) Hyponatremia: Code(s): E87.1 - Hypo-osmolality and hyponatremia Plan: repeat BMP (2) Elevated cholesterol: Comment: Intolerant to Lipitor knee pain Code(s): E78.00 - Pure hypercholesterolemia, unspecified Plan: cont low cholesterol diet (3) HTN (hypertension): Code(s): I10 - Essential (primary) hypertension Plan: cont meds (4) Osteoporosis: Comment: took fosamax for 6 years, DEXA 10/2020 4.4% improved from baseline, T score -2.3 R femur, stop 12/2020, started Prolia 03/30 Code(s): M81.0 - Age-related osteoporosis without current pathological fracture Plan: cont Prolia for 2 yrs then repeat DEXA, Prolia due in September Orders: Orders Lipid Panel 6 Months E55.9 - Vitamin D deficiency, unspecified, E78.00 - Pure hypercholesterolemia, unspecified, I10 - Essential (primary) hypertension, M81.0 - Age-related osteoporosis without current pathological fracture Vitamin D 25-OH Total 6 Months E55.9 - Vitamin D deficiency, unspecified, E78.00 - Pure hypercholesterolemia, unspecified, I10 - Essential (primary) hypertension, M81.0 - Age-related osteoporosis without current pathological fracture Basic Metabolic Panel 2 Weeks E87.1 - Hypo-osmolality and hyponatremia Comprehensive [place]. Panel Fast 6 Months E55.9 - Vitamin D deficiency, unspecified, E78.00 - Pure hypercholesterolemia, unspecified, I10 - Essential (primary) hypertension, M81.0 - Age-related osteoporosis without current pathological fracture Complete Blood Count Auto Diff 6 Months E55.9 - Vitamin D deficiency, unspecified, E78.00 - Pure hypercholesterolemia, unspecified, I10 - Essential (primary) hypertension, M81.0 - Age-related osteoporosis without current pathological fracture Medications: New denosumab (Prolia) due in September 60 mg subcut [id number] 1 mL 0RF Coding Level of Care Code Est Pt Level 4 (97528) Diagnoses Hyponatremia E87.1 Elevated cholesterol E78.00 HTN (hypertension) I10 Osteoporosis M81.0
== END 2023-04-16 13:45 | disposition home or self-care (01) ==
PROVIDERS: Visit Provider Internal Medicine
DX: E87.1 Hypo-osmolality and hyponatremia (principal); E78.00 Pure hypercholesterolemia, unspecified; I10 Essential (primary) hypertension; M81.0 Age-related osteoporosis without current pathological fracture
CPT/HCPCS: 99214

== ENCOUNTER 2023-05-15 07:47 | Outpatient (REF) | payer MEDICARE, SELFPAY | END 2023-05-15 07:48 | disposition home or self-care (01) | LOC: HO.MAMMO 07:47 | PROVIDERS: PCP Internal Medicine; Visit Provider Internal Medicine | DX: Z12.31 Encounter for screening mammogram for malignant neoplasm of breast (principal) | CPT/HCPCS: 77063; 77067 ==

== ENCOUNTER → 2023-05-15 08:00 | Outpatient (BNV) | payer MEDICARE, SELFPAY | PROVIDERS: PCP Internal Medicine; Visit Provider Radiology Diagnostic Radiology | DX: Z12.31 Encounter for screening mammogram for malignant neoplasm of breast (principal) | CPT/HCPCS: 77063; 77067 ==

== ENCOUNTER 2023-05-21 07:30 | Outpatient (REF) | payer MEDICARE, SELFPAY ==
[2023-05-21 12:13] LABS: Anion Gap 11 (12-20); Blood Urea Nitrogen 16 mg/dL (9-16); Calcium 9.3 mg/dL (8.4-10.2); Carbon Dioxide 27 mmol/L (22-29); Chloride 100 mmol/L (96-108); Estimated Glomerular Filt Rate > 60; Glucose Random 60 mg/dL (60-115); Sodium 134 mmol/L (135-145)
== END 2023-05-21 07:31 | disposition home or self-care (01) ==
LOC: HO.HMGCLDS 07:30
PROVIDERS: PCP Internal Medicine; Visit Provider Internal Medicine
DX: E87.1 Hypo-osmolality and hyponatremia (principal)
CPT/HCPCS: 36415; 80048

== ENCOUNTER 2023-09-24 09:43 | Outpatient (AMB) | payer MEDICARE, SELFPAY ==
--- NOTE | 2023-09-24 10:05 | AM.OFFVISNUR ---
Intake Intake Visit Reasons: prolia injection Intake Note: Pt arrived for 6 month Prolia injection Allergies Penicillins [PENICILLINS] Allergy (Intermediate, Verified 04/16/23 08:26) RASH atorvastatin [From Lipitor] Adverse Reaction (Intermediate, Verified 04/16/23 08:26) knee pain Office Meds Prolia 60 mg/mL subcutaneous syringe Performing Provider: Vianca Moreno MD Performing Location: [facility] Administered by: Melia Bronson RN on 09/24/23 10:06 Dose Route Admin Location Dispensed Lot Number Expiration Date [facility] [employer] 60 mg subcut left upper arm 1 mL [id number] 01/04/26 79867-866-24 AMGEN Comments: Pt supplied Coding Assessment & Plan Assessment & Plan Orders: Orders AMB Denosumab Injection Patient Supplied Today M81.0 - Age-related osteoporosis without current pathological fracture
== END 2023-09-24 11:03 | disposition home or self-care (01) ==
LOC: HO.HMGC 09:43
PROVIDERS: PCP Internal Medicine; Visit Provider Internal Medicine
DX: M81.0 Age-related osteoporosis without current pathological fracture (principal)
CPT/HCPCS: 96372; J0897

== ENCOUNTER 2023-11-06 13:18 | Outpatient (AMB) | payer MEDICARE, SELFPAY ==
[2023-11-06 13:32] VITALS: BP 122/66; PULSE 81; O2SAT 97; BMI 22.3
--- NOTE | 2023-11-06 13:32 | MHC.PC.OV ---
Vital Signs 11/06/23 13:32 Height 5 ft 4 in Weight 130 lb BMI 22.3 BP 122/66 Blood Pressure Location Rt brachial Position Sitting Pulse 81 Pulse Source Pulse Oximeter Pulse Oximetry (%) 97 Oxygen Delivery Method Room Air Intake Visit Reasons: Follow up Allergies Penicillins [PENICILLINS] Allergy (Intermediate, Verified 11/06/23 13:34) RASH atorvastatin [From Lipitor] Adverse Reaction (Intermediate, Verified 11/06/23 13:34) knee pain Medication List - Last Reconciled 11/06/23 by Vianca Moreno MD amlodipine 2.5 mg PO BID cholecalciferol (vitamin D3) (Vitamin D3) 25 mcg PO QPM denosumab (Prolia) 60 mg subcut [id number] irbesartan 300 mg PO DAILY lidocaine 5% 1 patch topical DAILY loratadine (Claritin) 10 mg PO DAILY PRN sliwmgcfpbju-wnjtxkql-otuulm 1 tab PO DAILY Prolia (denosumab) 60 mg subcut [id number] NS rosuvastatin (Crestor) 5 mg PO DAILY Tobacco use date assessed: 11/06/23 Fall risk assessment: No Falls in past year Last assessed Fall Risk: 11/06/23 Dental Screening Dental Screen Date: 11/06/23 Did you have a dental visit in the last 12 months?: Yes Did you have a dental problem in the last 6 months where you did not have access to dental care?: No Was dental information given to patient?: Patient has dentist HPI Follow up HPI Details Patient presents for the follow-up on hypertension hyperlipidemia osteoporosis. She has been getting Prolia injections since March 2023 and tolerating well PFSH Medical History Hyponatremia Mammogram normal Normal colonoscopy Vitamin D deficiency Family history of anesthesia complication Osteoporosis Elevated cholesterol HTN (hypertension) Surgical History H/O shoulder replacement Hx of tubal ligation Hx of colonoscopy Hx of tonsillectomy Hx of rotator cuff surgery Family History Father Cancer Mother Hypertension Social History Household Members Other:: , 4 children, 7 grandsons, 1 granddaughter Housing: House Unable to assess alcohol history related to: Unable to respond Patient Tobacco Use Status: Former Tobacco user e-Cigarette/Vaping Use: Never Used Second Hand Smoke Exposure: No Advance Directives Date on File: 05/03/20 service: No Current occupational status: retired Cognitive needs: No Hearing needs: No Vision needs: No Questionnaire PHQ-9 Over the last 2 weeks, how often have you been bothered by any of the following problems? 1. Little interest or pleasure in doing things: not at all 2. Feeling down, depressed, or hopeless: not at all 3. Trouble falling or staying asleep, or sleeping too much: not at all 4. Feeling tired or having little energy: not at all 5. Poor appetite or overeating: not at all 6. Feeling bad about yourself - or that you are a failure or have let yourself or your family down: not at all 7. Trouble concentrating on things, such as reading the newspaper or watching television: not at all 8. Moving or speaking so slowly that other people could have noticed. Or the opposite - being so fidgety or restless that you have been moving around a lot more than usual: not at all 9. Thoughts that you would be better off or of hurting yourself in some way: not at all Total score: 0 Depression Screening Interpretation: Negative Depression Screening Done: Yes Source: Developed by Drs. Payam Levine, Cher Kincaid, Dimitrios Valenzuela and colleagues, with an educational ameena from [employer]. Thrive Questionnaire Date Thrive assessed: 11/06/23 I am a: Patient What is your living situation today?: I have a steady place to live Within the past 12 months, did the food you bought not last and you didn't have the money to get more?: Never true Within the past 12 months, did you worry whether your food would run out before you got money to buy more?: Never true Do you have trouble paying for medicines?: No Do you have trouble getting transportation to medical appointments?: No Do you have trouble paying your heating and electricity bill?: No Do you have trouble taking care of your child, family member or friend?: No Do you have trouble with day-to-day activities such as bathing, preparing meals, shopping, managing finances, etc.?: No Are you currently unemployed and looking for a job?: No Are you interested in more education?: No Please select the resources that you would like help with: None THRIVE Score: 0 AUDIT C Alcohol Use Questionnaire (AUDIT-C) 1. How often do you have a drink containing alcohol?: 2-4 times a month 2. How many drinks containing alcohol do you have on a typical day when you are drinking?: 1 or 2 3. How often do you have six or more drinks on one occasion?: Never Total Score: 2 NASEEM-7 AMB Questionnaire NASEEM-7 Date NASEEM - 7 assessed: 11/06/23 Feeling nervous, anxious, or on edge: 0 = Not at all Not being able to stop or control worryin = Not at all Worrying too much about different things: 0 = Not at all Trouble relaxin = Not at all Being so restless that it is hard to sit still: 0 = Not at all Becoming easily annoyed or irritable: 0 = Not at all Feeling afraid as if something awful might happen: 0 = Not at all Total NASEEM-7 score (0-4 normal; 5-9 mild; 10-14 moderate; 15-21 severe): 0 Source: Developed by Drs. Payam Levine, Cher Kincaid, Dimitrios Valenzuela and colleagues, with an educational ameena from [employer]. Review of Systems Const All systems reviewed & are unremarkable except as noted in HPI and below Eyes Reports no additional complaints ENT Reports no additional complaints Card Reports no additional complaints Resp Reports no additional complaints GI Reports no additional complaints Reports no additional complaints Physical exam (Primary Care) Vital Signs: Last Vital Signs Pulse 81 11/06/23 13:32 BP 122/66 11/06/23 13:32 Pulse Ox 97 11/06/23 13:32 Oxygen Delivery Method Room Air 11/06/23 13:32 BMI result Body Mass Index 22.3 Tobacco/Smoking Status: Tobacco use Status Tobacco use date assessed 11/06/23 11/06/23 13:39 Patient Tobacco Use Status Former Tobacco user 11/06/23 13:32 e-Cigarette/Vaping Use Never Used 11/06/23 13:32 PHQ-9: PHQ-9 Score PHQ-9: Total score 0 11/06/23 13:39 Depression Screening Interpretation: Negative Thrive Assessment: Date of Thrive Assessment Date Thrive assessed 11/06/23 11/06/23 13:39 Const General: no acute distress HENMT Face and sinus: Yes normal facial exam Resp Effort & Inspection: normal respiratory effort Auscultation: clear to auscultation bilaterally Cardio Rhythm: regular rhythm Heart sounds: S1 normal heart sound present and S2 normal heart sound present GI Inspection: Yes normal to inspection Assessment and Plan Assessment & Plan (1) Hyponatremia: Code(s): E87.1 - Hypo-osmolality and hyponatremia Plan: Check BMP today, continue fluid restriction (2) HTN (hypertension): Code(s): I10 - Essential (primary) hypertension Plan: Continue current medications (3) Elevated cholesterol: Comment: Intolerant to Lipitor knee pain Code(s): E78.00 - Pure hypercholesterolemia, unspecified Plan: Continue crestor (4) Osteoporosis: Comment: took fosamax for 6 years, DEXA 10/2020 4.4% improved from baseline, T score -2.3 R femur, stop 12/2020, started Prolia 03/30, for 2 years then Reclast infusion and repeat DEXA Code(s): M81.0 - Age-related osteoporosis without current pathological fracture Plan: CONTINUE VITAMIN-D REGULAR EXERCISE Orders: Orders Basic Metabolic Panel Today E87.1 - Hypo-osmolality and hyponatremia Comprehensive Parker. Panel Fast 6 Months E78.00 - Pure hypercholesterolemia, unspecified, I10 - Essential (primary) hypertension, M81.0 - Age-related osteoporosis without current pathological fracture Lipid Panel 6 Months E78.00 - Pure hypercholesterolemia, unspecified, I10 - Essential (primary) hypertension, M81.0 - Age-related osteoporosis without current pathological fracture Vitamin D 25-OH Total 6 Months E78.00 - Pure hypercholesterolemia, unspecified, I10 - Essential (primary) hypertension, M81.0 - Age-related osteoporosis without current pathological fracture Complete Blood Count Auto Diff 6 Months E78.00 - Pure hypercholesterolemia, unspecified, I10 - Essential (primary) hypertension, M81.0 - Age-related osteoporosis without current pathological fracture TSH reflex Free T4 6 Months E78.00 - Pure hypercholesterolemia, unspecified, I10 - Essential (primary) hypertension, M81.0 - Age-related osteoporosis without current pathological fracture Coding Level of Care Code Est Pt Level 4 (74411) Diagnoses Hyponatremia E87.1 HTN (hypertension) I10 Elevated cholesterol E78.00 Osteoporosis M81.0
== END 2023-11-06 14:10 | disposition home or self-care (01) ==
PROVIDERS: PCP Internal Medicine; Visit Provider Internal Medicine
DX: E87.1 Hypo-osmolality and hyponatremia (principal); I10 Essential (primary) hypertension; E78.00 Pure hypercholesterolemia, unspecified; M81.0 Age-related osteoporosis without current pathological fracture
CPT/HCPCS: 99214

== ENCOUNTER 2023-11-12 07:31 | Outpatient (REF) | payer MEDICARE, SELFPAY ==
[2023-11-12 10:48] LABS: Anion Gap 13 (12-20); Blood Urea Nitrogen 14 mg/dL (9-16); Calcium 9.7 mg/dL (8.4-10.2); Carbon Dioxide 26 mmol/L (22-29); Chloride 102 mmol/L (96-108); Estimated Glomerular Filt Rate > 60; Glucose Random 121 mg/dL (60-115); Potassium 4.1 mmol/L (3.3-5.1); Sodium 137 mmol/L (135-145)
== END 2023-11-12 07:32 | disposition home or self-care (01) ==
LOC: HO.HMGCLDS 07:31
PROVIDERS: PCP Internal Medicine; Visit Provider Internal Medicine
DX: E87.1 Hypo-osmolality and hyponatremia (principal)
CPT/HCPCS: 36415; 80048

== ENCOUNTER 2024-03-26 09:46 | Outpatient (AMB) | payer MEDICARE, SELFPAY ==
--- NOTE | 2024-03-26 10:51 | AM.OFFVISNUR ---
Intake Visit Reasons: Prolia injection Intake Note: Pt arrived for Q 6 month Prolia injection Allergies Penicillins [PENICILLINS] Allergy (Intermediate, Verified 11/06/23 13:34) RASH atorvastatin [From Lipitor] Adverse Reaction (Intermediate, Verified 11/06/23 13:34) knee pain Office Meds Prolia 60 mg/mL subcutaneous syringe Performing Provider: Vianca Moreno MD [place] [facility] Administered by: Melia Bronson RN on 03/26/24 10:52 Dose Route Admin Location Dispensed Lot Number Expiration Date [facility] Flatbed Stitcher 60 mg subcut 1 mL [id number] 09/04/26 78742-859-32 AMGEN Comments: Pt supplied Assessment & Plan Assessment & Plan Orders: Orders AMB Denosumab Injection Patient Supplied Today M81.0 - Age-related osteoporosis without current pathological fracture Medications: New Prolia (denosumab) 60 mg subcut ONCE 1 mL 0RF NS M81.0 - Age-related osteoporosis without current pathological fracture
== END 2024-03-26 10:59 | disposition home or self-care (01) ==
PROVIDERS: PCP Internal Medicine; Visit Provider Internal Medicine
DX: M81.0 Age-related osteoporosis without current pathological fracture (principal)

== ENCOUNTER → 2024-03-26 09:46 | Outpatient (BNVA) | payer MEDICARE, SELFPAY | PROVIDERS: PCP Internal Medicine; Visit Provider Internal Medicine | DX: M81.0 Age-related osteoporosis without current pathological fracture (principal) | CPT/HCPCS: 96372; J0897 ==

== ENCOUNTER 2024-04-15 06:16 | Day surgery (SDC) | payer MEDICARE, SELFPAY ==
[2024-04-13 14:22] VITALS: BMI 22.3
--- NOTE | 2024-04-14 08:28 | HO.ANESPROP2 ---
Documented by User: Rosalba Gandhi NP 04/14/24 08:28 HPI - Anesthesia Eval Consult details Narrative: 78yo F for Colonoscopy PMFSH Active Problems Active Problems: All Active Problems Pre-op evaluation (Acute) Mammogram normal (Acute) Normal colonoscopy (Acute) H/O shoulder replacement (Acute) Hyponatremia (Acute) Vitamin D deficiency (Acute) Osteoporosis (Acute) Elevated cholesterol (Acute) HTN (hypertension) (Acute) Past Medical History Medical History Hyponatremia Vitamin D deficiency Family history of anesthesia complication Osteoporosis Elevated cholesterol HTN (hypertension) Family History Family History Father Cancer Mother Hypertension Surgical History Surgical History Hx of cataract extraction H/O shoulder replacement Hx of tubal ligation Hx of colonoscopy Hx of tonsillectomy Hx of rotator cuff surgery Social History Social History Household Members Other:: , 4 children, 7 grandsons, 1 granddaughter Housing: House Unable to assess alcohol history related to: Unable to respond Patient Tobacco Use Status: Former Tobacco user e-Cigarette/Vaping Use: Never Used Second Hand Smoke Exposure: No Use of substances other than those prescribed or required for medical reasons: Yes Substance Use Type Other:: CBD gummies for sleep Are you DNR?: No Advance Directives: No Advance Directives Information Provided: Yes Advance Directives Date on File: 05/03/20 service: No Current occupational status: retired Cognitive needs: No Hearing needs: No Vision needs: No Meds Allergies Allergy/AdvReac Type Severity Reaction Status Date / Time Penicillins [PENICILLINS] Allergy Intermediate RASH Verified 04/15/24 06:41 atorvastatin [From Lipitor] AdvReac Intermediate knee pain Verified 04/15/24 06:41 Home Medications ?Medication ?Instructions ?Recorded ?Confirmed ?Last Taken ?Type cholecalciferol (vitamin D3) 25 25 mcg PO QPM 04/27/20 04/15/24 05/15/20 History mcg (1,000 unit) tablet (Vitamin D3) loratadine 10 mg tablet (Claritin) 10 mg PO DAILY PRN Nasal Congestion 04/27/20 04/15/24 05/03/20 19:00 History bjsnjdbzeiil-jcvrprvp-fxtlrp tablet 1 tab PO DAILY 04/27/20 04/15/24 05/15/20 07:00 History Exam Height,Weight and Vital Signs: Height 5 ft 4 in Weight 58.967 kg Assessment and Plan Assessment Anesthesia Assessment: Chart Reviewed Documented by User: Tina Quick MD 04/15/24 08:11 PMFSH Past Medical History Medical History Hyponatremia Vitamin D deficiency Family history of anesthesia complication Osteoporosis Elevated cholesterol HTN (hypertension) Family History Family History Father Cancer Mother Hypertension Family history of problems with anesthesia: No Surgical History Surgical History Hx of cataract extraction H/O shoulder replacement Hx of tubal ligation Hx of colonoscopy Hx of tonsillectomy Hx of rotator cuff surgery History of Problems with Anesthesia: No Social History Social History Household Members Other:: , 4 children, 7 grandsons, 1 granddaughter Housing: House Unable to assess alcohol history related to: Unable to respond Patient Tobacco Use Status: Former Tobacco user e-Cigarette/Vaping Use: Never Used Second Hand Smoke Exposure: No Use of substances other than those prescribed or required for medical reasons: Yes Substance Use Type Other:: CBD gummies for sleep Are you DNR?: No Advance Directives: No Advance Directives Information Provided: Yes Advance Directives Date on File: 05/03/20 service: No Current occupational status: retired Cognitive needs: No Hearing needs: No Vision needs: No Meds Allergies Allergy/AdvReac Type Severity Reaction Status Date / Time Penicillins [PENICILLINS] Allergy Intermediate RASH Verified 04/15/24 06:41 atorvastatin [From Lipitor] AdvReac Intermediate knee pain Verified 04/15/24 06:41 Home Medications ?Medication ?Instructions ?Recorded ?Confirmed ?Last Taken ?Type cholecalciferol (vitamin D3) 25 25 mcg PO QPM 04/27/20 04/15/24 05/15/20 History mcg (1,000 unit) tablet (Vitamin D3) loratadine 10 mg tablet (Claritin) 10 mg PO DAILY PRN Nasal Congestion 04/27/20 04/15/24 05/03/20 19:00 History toniwnoasjvs-iufkglre-sdlwyt tablet 1 tab PO DAILY 04/27/20 04/15/24 05/15/20 07:00 History Exam Airway Mallampati Class: II TM Dist: >3cm Neck ROM: Full Heart: rrr Lungs: cta Assessment and Plan Assessment Anesthesia Assessment: Anesthesia Plan Discussed Final Anesthetic Review Family History of Problems with Anesthesia: No History of Problems with Anesthesia: No NPO: Yes ASA Class: II Final Preanesthetic Review: No Changes in Pt Med Stat, Meds/Allgs Chart Reviewed, Consent Obtained/Reviewed and Anes Risks/Benef Reviewed Patient Risk: Low Procedure Risk: Low Anesthetic Plan Anesthetic Plan: MAC:
[2024-04-15 06:46] VITALS: BP 156/68; PULSE 72; RESP 16; TEMP 37.3; O2SAT 98
[2024-04-15 06:51] VITALS: BMI 22.9
[2024-04-15] MEDS: Lactated Ringers 1,000 ML 100 ML IVCONT (06:57)
[2024-04-15 08:30] VITALS: BP 97/45; PULSE 65; RESP 16; TEMP 37.1; O2SAT 98
--- NOTE | 2024-04-15 08:31 | P.BOP_ITS ---
Brief Operative Note Date of Service: 04/15/24 Pre-op diagnosis: Screening Post-op diagnosis: other (Colon polyp) Procedure: Colonoscopy to the cecum with cold snare polypectomy and bx/removal of polyp Surgeon: Payam Hawkins MD Anesthesia: MAC Was an Phlebotomy Instructor used for this Procedure?: No Estimated blood loss (mL): 2.0 Pathology: other (A. Polyp at 40cm) Condition: stable Disposition: PACU
[2024-04-15 08:45] VITALS: BP 117/60; PULSE 67; RESP 16; O2SAT 99
--- NOTE | 2024-04-15 08:46 | OP_ITS ---
DATE OF SERVICE: 04/15/2024 SURGEON: Payam Hawkins MD INDICATIONS: The patient presents for evaluation of colorectal cancer screening and personal history of tubular adenomas of the colon. Full consent was obtained from her for this, including risks of bleeding and perforation. PREOPERATIVE DIAGNOSIS: Colorectal cancer screening and personal history of colon polyps. POSTOPERATIVE DIAGNOSIS: Colorectal cancer screening and personal history of colon polyps, colon polyp, diverticulosis, and internal hemorrhoids. PROCEDURE PERFORMED: Colonoscopy to cecum with cold snare polypectomy and biopsy and removal of polyp. ESTIMATED BLOOD LOSS: COMPLICATIONS: ANESTHESIA: Monitored anesthesia care. ASSISTANTS: SPECIMENS: DESCRIPTION OF PROCEDURE: The patient was placed in the left lateral decubitus position. The digital rectal exam revealed no abnormalities. The Olympus video pediatric colonoscope was entered into the rectum and advanced easily to the cecum. Once in the cecum, I did identify normal-appearing cecal pouch with appendiceal orifice and a normal-appearing ileocecal valve. There was transillumination of light deep in the right lower quadrant. The entire cecum and ileocecal valve appeared normal. The scope was slowly withdrawn assessing all mucosal surfaces carefully. Preparation was excellent. At 40 cm, was an approximately 5 mm polyp, which was partially removed with a cold snare and recovered by suction, and the remainder was then removed with cold biopsy forceps. There was no sign of any residual polyp nor significant bleeding. I did not visualize any other polyps, colitis, nor angiodysplasia. There was a mild amount of sigmoid diverticulosis. In the rectum, scope was retroflexed visualizing internal hemorrhoids, but no other pathology. The rectal mucosa appeared normal. The scope was straightened and withdrawn from the patient. She tolerated the procedure well and was returned to recovery area in stable condition. IMPRESSION: 1. Colon polyp. 2. Diverticulosis. 3. Internal hemorrhoids. PLAN: The results of the pathology will be checked. Given her age and the minimal findings, I do not think she will need any further screening colonoscopies. She will otherwise see me on a p.r.n. basis. MD RASHAD Martinez/OSEI / [id number]
[2024-04-15 08:58] VITALS: BP 145/69; PULSE 64; RESP 16; TEMP 36.4; O2SAT 99
== END 2024-04-15 09:27 | disposition home or self-care (01) ==
PROVIDERS: PCP Internal Medicine; Visit Provider Internal Medicine
PROC: 0DJD8ZZ Inspection of Lower Intestinal Tract, Via Natural or Artificial Opening Endoscopic (ICD-10-PCS; CPT 45378; principal; 2024-04-15 07:30)
DX: Z12.11 Encounter for screening for malignant neoplasm of colon (principal); Z86.0101 Personal history of adenomatous and serrated colon polyps; K51.40 Inflammatory polyps of colon without complications; K57.30 Diverticulosis of large intestine without perforation or abscess without bleeding; K64.8 Other hemorrhoids; I10 Essential (primary) hypertension; E78.00 Pure hypercholesterolemia, unspecified; M81.0 Age-related osteoporosis without current pathological fracture; E55.9 Vitamin D deficiency, unspecified; E87.1 Hypo-osmolality and hyponatremia; Z79.620 Long term (current) use of immunosuppressive biologic; Z79.899 Other long term (current) drug therapy; Z88.0 Allergy status to penicillin; Z87.891 Personal history of nicotine dependence
CPT/HCPCS: 45385; 45380; 88305; J2003; J2704

== ENCOUNTER 2024-05-12 09:11 | Outpatient (AMB) | payer MEDICARE, SELFPAY ==
--- NOTE | 2024-05-12 09:12 | A.OFFPC_ITS ---
Vital Signs 05/12/24 09:14 Height 5 ft 4 in Weight 133 lb BMI 22.8 BP 118/74 Blood Pressure Location Rt brachial Position Sitting Pulse 78 Pulse Source Pulse Oximeter Pulse Oximetry (%) 97 Oxygen Delivery Method Room Air Intake Visit Reasons: 6M Follow up Intake Note: Pt is here today for 6 months follow up visit. Allergies Penicillins [PENICILLINS] Allergy (Intermediate, Verified 05/12/24 09:21) RASH atorvastatin [From Lipitor] Adverse Reaction (Intermediate, Verified 05/12/24 09:21) knee pain Medication List - Last Reconciled 05/12/24 by Vianca Moreno MD amlodipine 2.5 mg PO BID cholecalciferol (vitamin D3) (Vitamin D3) 25 mcg PO QPM irbesartan 300 mg PO DAILY lidocaine 5% 1 patch topical DAILY loratadine (Claritin) 10 mg PO DAILY PRN ihypmiwkoduf-owxqemms-esxmuf 1 tab PO DAILY Prolia (denosumab) 60 mg subcut [id number] NS rosuvastatin (Crestor) 5 mg PO DAILY Tobacco use date assessed: 05/12/24 Fall risk assessment: No Falls in past year Last assessed Fall Risk: 05/12/24 Dental Screening Dental Screen Date: 11/06/23 HPI 6M Follow up HPI Details PATIENT PRESENTS FOR THE FOLLOW-UP ON HYPERTENSION HYPERLIPIDEMIA OSTEOPOROSIS. Patient will get her 4th injection of Prolia in September. [facility] Medical History Hyponatremia Vitamin D deficiency Family history of anesthesia complication Osteoporosis Elevated cholesterol HTN (hypertension) Surgical History Hx of cataract extraction H/O shoulder replacement Hx of tubal ligation Hx of colonoscopy Hx of tonsillectomy Hx of rotator cuff surgery Family History Father Cancer Mother Hypertension Social History Household Members Other:: , 4 children, 7 grandsons, 1 granddaughter Housing: House Unable to assess alcohol history related to: Unable to respond Patient Tobacco Use Status: Former Tobacco user e-Cigarette/Vaping Use: Never Used Second Hand Smoke Exposure: No Advance Directives Date on File: 05/03/20 service: No Current occupational status: retired Cognitive needs: No Hearing needs: No Vision needs: No Questionnaire PHQ-9 Over the last 2 weeks, how often have you been bothered by any of the following problems? 1. Little interest or pleasure in doing things: not at all 2. Feeling down, depressed, or hopeless: not at all 3. Trouble falling or staying asleep, or sleeping too much: not at all 4. Feeling tired or having little energy: not at all 5. Poor appetite or overeating: not at all 6. Feeling bad about yourself - or that you are a failure or have let yourself or your family down: not at all 7. Trouble concentrating on things, such as reading the newspaper or watching television: not at all 8. Moving or speaking so slowly that other people could have noticed. Or the opposite - being so fidgety or restless that you have been moving around a lot more than usual: not at all 9. Thoughts that you would be better off or of hurting yourself in some way: not at all Total score: 0 Depression Screening Interpretation: Negative Depression Screening Done: Yes 33387 - PHQ-9 Billing: Yes Source: Developed by Drs. Payam Levine, Cher Kincaid, Dimitrios Valenzuela and colleagues, with an educational ameena from [employer]. Thrive Questionnaire Date Thrive assessed: 05/12/24 I am a: Patient What is your living situation today?: I have a steady place to live Within the past 12 months, did the food you bought not last and you didn't have the money to get more?: Never true Within the past 12 months, did you worry whether your food would run out before you got money to buy more?: Never true Do you have trouble paying for medicines?: No Do you have trouble getting transportation to medical appointments?: No Do you have trouble paying your heating and electricity bill?: No Do you have trouble taking care of your child, family member or friend?: No Do you have trouble with day-to-day activities such as bathing, preparing meals, shopping, managing finances, etc.?: No Are you currently unemployed and looking for a job?: No Are you interested in more education?: No Please select the resources that you would like help with: None Currently or been in a relationship where the following occur: No concerns reported THRIVE Score: 0 AUDIT C Alcohol Use Questionnaire (AUDIT-C) 1. How often do you have a drink containing alcohol?: 2-4 times a month 2. How many drinks containing alcohol do you have on a typical day when you are drinking?: 1 or 2 3. How often do you have six or more drinks on one occasion?: Never Total Score: 2 NASEEM-7 AMB Questionnaire NASEEM-7 Date NASEEM - 7 assessed: 05/12/24 Feeling nervous, anxious, or on edge: 0 = Not at all Not being able to stop or control worryin = Not at all Worrying too much about different things: 0 = Not at all Trouble relaxin = Not at all Being so restless that it is hard to sit still: 0 = Not at all Becoming easily annoyed or irritable: 0 = Not at all Feeling afraid as if something awful might happen: 0 = Not at all Total NASEEM-7 score (0-4 normal; 5-9 mild; 10-14 moderate; 15-21 severe): 0 Source: Developed by Drs. Payam Levine, Cher Kincaid, Dimitrios Valenzuela and colleagues, with an educational ameena from [employer]. NASEEM-7 Assessment Billing NASEEM-7 Assessment Tool: NASEEM-7 Assessment 61990 Review of Systems Const All systems reviewed & are unremarkable except as noted in HPI and below ENT Reports no additional complaints Card Reports no additional complaints Resp Reports no additional complaints GI Reports no additional complaints Reports no additional complaints Physical exam (Primary Care) Vital Signs: Last Vital Signs Pulse 78 05/12/24 09:14 BP 118/74 05/12/24 09:14 Pulse Ox 97 05/12/24 09:14 Oxygen Delivery Method Room Air 05/12/24 09:14 BMI result Body Mass Index 22.8 Tobacco/Smoking Status: Tobacco use Status Tobacco use date assessed 05/12/24 05/12/24 09:24 Patient Tobacco Use Status Former Tobacco user 05/12/24 09:13 e-Cigarette/Vaping Use Never Used 05/12/24 09:13 PHQ-9: PHQ-9 Score PHQ-9: Total score 0 05/12/24 09:24 Depression Screening Interpretation: Negative Thrive Assessment: Date of Thrive Assessment Date Thrive assessed 05/12/24 05/12/24 09:24 Currently or been in a relationship where the following occur: No concerns reported Const General: no acute distress Neck Neck: Yes supple Resp Effort & Inspection: normal respiratory effort Auscultation: clear to auscultation bilaterally Cardio Rhythm: regular rhythm Heart sounds: S1 normal heart sound present and S2 normal heart sound present GI Inspection: Yes normal to inspection Palpation (GI): Soft to palpation Coding Level of Care Code Est Pt Level 4 (88652) Diagnoses Osteoporosis M81.0 Elevated cholesterol E78.00 HTN (hypertension) I10 Normal colonoscopy Additional Codes NASEEM-7 Assessment Billing - NASEEM-7 Assessment Tool: NASEEM-7 Assessment 68383 ([id number]) Assessment & Plan Assessment & Plan (1) Osteoporosis: Comment: took fosamax for 6 years, DEXA 10/2020 4.4% improved from baseline, T score -2.3 R femur, stop 12/2020, started Prolia 03/30 for 2 years and and repeat DEXA in 11/2024 Code(s): M81.0 - Age-related osteoporosis without current pathological fracture Category: Medical Plan: Continue Prolia vitamin-D and weight-bearing exercises (2) Elevated cholesterol: Comment: Intolerant to Lipitor knee pain Code(s): E78.00 - Pure hypercholesterolemia, unspecified Category: Medical Plan: Continue statin (3) HTN (hypertension): Code(s): I10 - Essential (primary) hypertension Category: Medical Plan: Continue current medications follow-up in 6 month (4) Normal colonoscopy: Comment: 2018 , repeated 12/2023 negative Category: Medical Plan: up to date Orders: Orders XR DEXA axial skeleton 6 Months M81.0 - Age-related osteoporosis without current pathological fracture
[2024-05-12 09:14] VITALS: BP 118/74; PULSE 78; O2SAT 97; BMI 22.8
== END 2024-05-12 10:12 | disposition home or self-care (01) ==
LOC: HO.HMCC 09:12
PROVIDERS: PCP Internal Medicine; Visit Provider Internal Medicine
DX: M81.0 Age-related osteoporosis without current pathological fracture (principal); E78.00 Pure hypercholesterolemia, unspecified; I10 Essential (primary) hypertension

== ENCOUNTER → 2024-05-12 09:11 | Outpatient (BNVA) | payer MEDICARE, SELFPAY | PROVIDERS: PCP Internal Medicine; Visit Provider Internal Medicine | DX: M81.0 Age-related osteoporosis without current pathological fracture (principal); E78.00 Pure hypercholesterolemia, unspecified; I10 Essential (primary) hypertension | CPT/HCPCS: 96127; 99212 ==

== ENCOUNTER 2024-05-14 06:51 | Outpatient (REF) | payer MEDICARE, SELFPAY ==
[2024-05-14 10:25] LABS: MANUAL DIFF FLAG NO
[2024-05-14 10:32] LABS: Red Blood Count 4.25 X10*6/uL (4.20-5.50); White Blood Count 5.6 X10*3/uL (4.8-10.8)
[2024-05-14 10:33] LABS: Basophils Percent Auto 0.7 % (0-2); Eosinophils Absolute Auto 0.2 X10*3/uL (0.0-0.4); Eosinophils Percent Auto 2.7 % (0-4); Hematocrit 39.5 % (37.0-47.0); Hemoglobin 13.2 g/dl (12.0-16.0); Imm Gran Abs Auto 0.03 X10*3/uL (0.00-0.03); Imm Gran Pct Auto 0.5 % (0.0-0.4); Lymphocytes Absolute Auto 1.6 X10*3/uL (1.2-4.9); Lymphocytes Percent Auto 29.3 % (20-40); Mean Corpuscular HGB Conc 33.4 g/dl (31.0-35.0); Mean Corpuscular Hemoglobin 31.1 pg (27.0-33.0); Mean Corpuscular Volume 92.9 fL (80.0-98.0); Mean Platelet Volume 11.9 fL (9.4-12.3); Monocytes Absolute Auto 0.6 X10*3/uL (0.1-1.2); Monocytes Percent Auto 10.6 % (2-11); Neutrophils Absolute Auto 3.1 x10*3/uL (2.0-8.3); Neutrophils Percent Auto 56.2 % (45-73); Platelet Count 198 X10*3/uL (160-400); Red Cell Distribution Width 12.1 % (11.0-16.0)
[2024-05-14 11:07] LABS: Alanine Aminotransferase 23 U/L (0-31); Albumin Level 4.2 g/dL (3.5-5.0); Alkaline Phosphatase 64 U/L (39-117); Anion Gap 13 (12-20); Aspartate Amino Transferase 29 U/L (5-31); Bilirubin Total 0.6 mg/dL (0.0-1.0); Blood Urea Nitrogen 15 mg/dL (9-16); Carbon Dioxide 25 mmol/L (22-29); Chloride 101 mmol/L (96-108); Cholesterol 192 mg/dL (<200); Estimated Glomerular Filt Rate > 60; Glucose Fasting 87 mg/dL (60-99); HDL Cholesterol 74 mg/dL (>40); LDL Cholesterol Calculated 101 mg/dL (<100); Potassium 4.1 mmol/L (3.3-5.1); Sodium 135 mmol/L (135-145); Total Protein 7.1 g/dL (6.5-8.0); Triglycerides 86 mg/dL (<150)
[2024-05-14 11:24] LABS: TSH reflex Free T4 1.72 uIU/mL (0.32-4.0); Vitamin D 25-OH Total 48.3 ng/mL (>30)
== END 2024-05-14 06:52 | disposition home or self-care (01) ==
LOC: HO.HMGCLDS 06:51
PROVIDERS: PCP Internal Medicine; Visit Provider Internal Medicine
DX: I10 Essential (primary) hypertension (principal); E78.00 Pure hypercholesterolemia, unspecified; M81.0 Age-related osteoporosis without current pathological fracture
CPT/HCPCS: 36415; 80053; 80061; 82306; 84443; 85025

== ENCOUNTER 2024-05-20 07:58 | Outpatient (REF) | payer MEDICARE, SELFPAY ==
--- NOTE | ~2024-05-20 | MM_ITS ---
EXAMINATION: MM SCREENING DIGITAL BREAST TOMOSYNTHESIS, BILATERAL CLINICAL INFORMATION: Screening. Asymptomatic. COMPARISON: Mammography: Comparison is made with available priors TECHNIQUE: Digital breast mammography with tomosynthesis is performed in both the craniocaudal and mediolateral oblique views along with computer-aided detection (CAD). FINDINGS: There are scattered areas of fibroglandular density (ACR BI-RADS breast composition Category b). There are no significant masses, abnormal calcifications, or other abnormalities. MM/MM tomosynthesis screening BI IMPRESSION: No mammographic evidence of malignancy. ASSESSMENT: BI-RADS BI-RADS 1 - Negative RECOMMENDATION: Routine annual mammography screening. 1 year F/U This examination should not preclude the clinical evaluation of a suspicious palpable abnormality. This patient's information was entered into a reminder system with a target due date for their next mammogram. Electronically signed by: Fozia Villafuerte DO 05/28/2024 06:15 PM JIM
== END 2024-05-20 07:59 | disposition home or self-care (01) ==
LOC: HO.MAMMO 07:58
PROVIDERS: PCP Internal Medicine; Visit Provider Internal Medicine
DX: Z12.31 Encounter for screening mammogram for malignant neoplasm of breast (principal)
CPT/HCPCS: 77063; 77067

== ENCOUNTER → 2024-05-20 08:15 | Outpatient (BNV) | payer MEDICARE, SELFPAY | PROVIDERS: PCP Internal Medicine; Visit Provider Internal Medicine | DX: Z12.31 Encounter for screening mammogram for malignant neoplasm of breast (principal) | CPT/HCPCS: 77063; 77067 ==

== ENCOUNTER 2024-10-01 08:44 | Outpatient (AMB) | payer MEDICARE, SELFPAY ==
--- NOTE | 2024-10-01 09:11 | AM.OFFVISNUR ---
Intake Visit Reasons: Prolia injection-may be late Intake Note: Pt arrived for Prolia injection Allergies Penicillins [PENICILLINS] Allergy (Intermediate, Verified 05/12/24 09:21) RASH atorvastatin [From Lipitor] Adverse Reaction (Intermediate, Verified 05/12/24 09:21) knee pain Office Meds Prolia 60 mg/mL subcutaneous syringe Performing Provider: Vianca Moreno MD Performing Location: [facility] Administered by: Melia rBonson RN on 10/01/24 09:12 Dose Route Admin Location Dispensed Lot Number Expiration Date [facility] [employer] 60 mg subcut left upper arm 1 mL [id number] 01/04/27 97901-401-02 AMGEN Comments: Pt supplied Assessment & Plan Assessment & Plan Orders: Orders AMB Denosumab Injection Patient Supplied Today M81.0 - Age-related osteoporosis without current pathological fracture Medications: New Prolia (denosumab) 60 mg subcut ONCE 1 mL 0RF NS M81.0 - Age-related osteoporosis without current pathological fracture Coding
--- OUTSIDE RECORDS SUMMARY | 2024-10-01 09:31 | XMS_ITS ---
Author Organization [facility] Address [address] [place] [address] Care Team Providers Care Waste Collection Driver Name Role Phone Vianca Moreno MD Primary Care Provider Payam Aviles Unavailable [phone] Allergies Allergen (clinical drug ingredient) Drug/Non Drug Allergy documented on EMR Reaction Allergy Type Onset Date Status penicillin G Penicillin G Potassium Unknown Drug Allergy Active REASON FOR VISIT Patient presents today for a colon recall Medications Medication SIG (Take, Route, Frequency, Duration) Notes Start Date End Date Status Rosuvastatin Calcium 5 MG TAKE ONE TABLE T BY MOUTH EVERY DAY Oral for 90 Active Prolia 60 MG/ML INJECT 60 MG SUBCUTA NEOUSLY EVERY 6 MONTHS. Subcutaneous for 180 Active amLODIPine Besylate 2.5 MG Oral for 90 Active Irbesartan 300 MG TAKE ONE TABLET BY M OUTH EVERY DAY Oral for 90 Active Vitamin D3 Active Social History Tobacco Use: Social History Observation Description Date Details (start date - stop date) Never Smoker NA - NA Tobacco Use/Smoking Question Answer Notes Patient is a nonsmoker Alcohol Screen Question Answer Notes Did you have a drink contain ing alcohol in the past year? Yes How often did you have a dri nk containing alcohol in the past year? Never (0 point) How many drinks did you have on a typical day when you were drinking in the past year? 1 or 2 drinks (0 point) How often did you have 6 or more drinks on one occasion in the past year? Never (0 point) Points 0 Interpretation Negative Section Notes: nonsmoker; occasional glass of wine Problems Problem Type SNOMED Code ICD Code Onset Dates Problem Status W/U Status Risk Notes Problem History of adenomatous polyp of colon (524128810) History of adenomatous polyp of colon (Z86.010) Active confirmed Problem Colon cancer screening (885848178) Colon cancer screening (Z12.11) Active confirmed Problem Pre-procedure evaluation check (923261408) Encounter for other preprocedural examination (Z01.818) Active confirmed Vital Signs Blood pressure systolic 00 mm Hg 12/19/19 24 Blood pressure diastolic 00 mm Hg 024 Height 64 in 12/19/2023 Weight 130 lbs 12/19/2023 BMI 22.31 kg/m2 12/19/2023 Encounters Encounter Location Date Provider Diagnosis [facility] [address] [place] [address] 12/19/2023 Payam Hawkins History of adenomato us polyp of colon Z86.010 ; Colon cancer screening Z12.11 and Encounter for other preprocedural examination Z01.818 Assessments Encounter Date Diagnosis (ICD Code) Assessment Notes Treatment Notes Treatment Clinical Notes Section Notes 12/19/2023 History of adenomatous polyp of colon (ICD-10 - Z86.010) Overall, Anu appears quite well. Given her age, excellent clinical appearance, her history of a tubular adenoma, and her last colonoscopy being over 5 years ago, I did recommend a followup colonoscopy for further screening purposes. We did review the rationale for that regard to colon cancer prevention. Full consent was obtained for this, including risks of bleeding and perforation. The procedure will be done with monitored anesthesia care. Anu was comfortable with this plan. Thank you again for allowing me to participate in Anu's care. I shall continue to keep you advised of her progress. 12/19/2023 Colon cancer screening (ICD-10 - Z12.11) Overall, Anu appears quite well. Given her age, excellent clinical appearance, her history of a tubular adenoma, and her last colonoscopy being over 5 years ago, I did recommend a followup colonoscopy for further screening purposes. We did review the rationale for that regard to colon cancer prevention. Full consent was obtained for this, including risks of bleeding and perforation. The procedure will be done with monitored anesthesia care. Anu was comfortable with this plan. Thank you again for allowing me to participate in Anu's care. I shall continue to keep you advised of her progress. 12/19/2023 Encounter for other preprocedural examination (ICD-10 - Z01.818) Overall, Anu appears quite well. Given her age, excellent clinical appearance, her history of a tubular adenoma, and her last colonoscopy being over 5 years ago, I did recommend a followup colonoscopy for further screening purposes. We did review the rationale for that regard to colon cancer prevention. Full consent was obtained for this, including risks of bleeding and perforation. The procedure will be done with monitored anesthesia care. Anu was comfortable with this plan. Thank you again for allowing me to participate in Anu's care. I shall continue to keep you advised of her progress. Plan Of Treatment Future Test Test Name Order Date COLONOSCOPY 12/19/2023 Next Appt Details Follow Up: prn, Reason: Progress Notes * ANU DIAZ BDOB:[birth year] (78 yo F)Acc No.[id number]:12/19/2023 Progress Notes Patient:?ANU DIAZ B Provider:?Payam Hawkins MD :1945???Age:78 Y???Sex:Female D ate:12/19/2023 Address:[address] [place] [address] Pcp:Vianca Moreno MD Subjective: * Chief Complaints: * ???Patient presents today fo r a colon recall * HPI: ???incontinence:? I saw Anu in the office today for evaluation of her personal history of a tubular adenoma of the colon and need for colorectal cancer screening. ?I last saw Anu in October 2018, at which time she underwent a screening colonoscopy with removal of a small tubular adenoma. She presently feels well. She enjoys a good appetite, without any significant heartburn or dysphagia. Her bowel movements have been regular and without any signs of bleeding. She denies abdominal pain, jaundice, nor unintentional weight loss. She denies any family history of first-degree relatives with colorectal cancer. * ROS:?General/Constitutional:?Change in appetite?denies.?Chills?denies.?Fatigue?denies.?Ophthalmologic:?Comments?all negative.?ENT:?Comments?all negative.?Respiratory:?hemoptysis?denies.?Cough?denies.?Cardiovascular:?Chest pain?denies.?Orthopnea?denies.?Gastrointestinal:?Comments?See HPI for details.?Genitourinary:?Hematuria?denies.?Dysuria?denies.?Musculoskeletal:?Painful joints?denies.?Weakness?denies.?Skin:?Itching?denies.?Rash?denies.?Neurologic:?Headache?denies.?Seizures?denies.?Psychiatric:?Comments?all negative.? * Medical History:? * Surgical History:?Rotator cu ff tear repair/right Tonsillectomy Partial shoulder replacement left ataracts * Hospitalization/Major Diagno stic Procedure:?No Hospitalization History. * Family History:?Father: dece ased, cancer/lung?.?Mother: , diagnosed with Heart disease.?Paternal Grand Father: , rectal cancer.? No known colon cancer in 1st-degree relatives. * Social History:?Tobacco Use:?Tobacco Use/Smoking?Patient is a?nonsmoker.?Drugs/Alcohol:?Alcohol Screen?Did you have a drink containing alcohol in the past year??Yes,?How often did you have a drink containing alcohol in the past year??Never (0 point),?How many drinks did you have on a typical day when you were drinking in the past year??1 or 2 drinks (0 point),?How often did you have 6 or more drinks on one occasion in the past year??Never (0 point),?Points?0,?Interpretation?Negative.?Miscellaneous:?Marital status: . Occupation: retired. ???nonsmoker; occasional glass of wine. * Medications:?TakingVitamin D 3 Irbesartan 300 MG Tablet TAKE ONE TABLET BY MOUTH EVERY DAY Oral amLODIPine Besylate 2.5 MG Tablet Oral Prolia 60 MG/ML Solution Prefilled Syringe INJECT 60 MG SUBCUTANEOUSLY EVERY 6 MONTHS. Subcutaneous Rosuvastatin Calcium 5 MG Tablet TAKE ONE TABLET BY MOUTH EVERY DAY Oral Taking Vitamin D3 Taking Irbesartan 300 MG Tablet TAKE ONE TABLET BY MOUTH EVERY DAY Oral Taking amLODIPine Besylate 2.5 MG Tablet Oral Taking Prolia 60 MG/ML Solution Prefilled Syringe INJECT 60 MG SUBCUTANEOUSLY EVERY 6 MONTHS. Subcutaneous Taking Rosuvastatin Calcium 5 MG Tablet TAKE ONE TABLET BY MOUTH EVERY DAY Oral DiscontinuedAtorvastatin Calcium 40 MG Tablet 1 tablet Orally Once a dayFosamax 70 MG Tablet 1 tablet Orally as directedVitamin D 1000 UNIT Tablet 1 tablet Orally Once a dayMedication List reviewed and reconciled with the patientDiscontinued Atorvastatin Calcium 40 MG Tablet 1 tablet Orally Once a dayDiscontinued Fosamax 70 MG Tablet 1 tablet Orally as directedDiscontinued Vitamin D 1000 UNIT Tablet 1 tablet Orally Once a dayMedication List reviewed and reconciled with the patient * Allergies:?Penicillin G Pota valentin[Allergies Verified] Objective: * Vitals:?Wt: 130 lbs, Ht: 64 in, BMI:22.31 Index, BP: 00/00 mm Hg. * Examination: ???General Examination: ?GENERAL APPEARANCE:?pleasant, well nourished, well developed, in no acute distress.?EYES:?sclera non-icteric.?ORAL CAVITY:?mucosa moist.?NECK/THYROID:?no cervical lymphadenopathy, neck supple.?SKIN:?nonjaundiced, no spider angiomata.?HEART:?S1, S2 normal.?LUNGS:?clear to auscultation bilaterally.?ABDOMEN:?normal bowel sounds, no guarding or rigidity, no guarding or rigidity, no masses palpable, soft, nontender, nondistended.?EXTREMITIES:?no edema.?NEUROLOGIC:?alert and oriented.? Assessment: * Assessment: 1.?Colon cancer screening - Z12.11 (Primary)?2.?History of adenomatous polyp of colon - Z86.010?3.?Encounter for other preprocedural examination - Z01.818? Overall, Anu appears q uite well. Given her age, excellent clinical appearance, her history of a tubular adenoma, and her last colonoscopy being over 5 years ago, I did recommend a followup colonoscopy for further screening purposes. We did review the rationale for that regard to colon cancer prevention. Full consent was obtained for this, including risks of bleeding and perforation. The procedure will be done with monitored anesthesia care. Anu was comfortable with this plan. Thank you again for allowing me to participate in Anu's care. I shall continue to keep you advised of her progress. Plan: * Treatment: 2.?History of adenomatous polyp of colon?Procedure: COLONOSCOPY (Ordered for 12/19/2023)* with MACsched for 04/15/24 at 7:30 ammiralax * Procedure Codes:? * Preventive Medicine:? ??Urinary Incontinence:?Urinary Incontinence?Assessment:?Absent,?Plan of care documented:?No, reason not specified.? * Follow Up:?prn * * Sign off status: Completed true * Provider:?Payam Hawkins MD Date:? 024 Generated for Maribel pinzon/Aminta/eTransmitting on:?10/01/2024 09:31 AM EDT History and Physical Notes * HPI (History of Present Illness) Category Sub-Category Detail Notes Category Not es incontinence I saw Anu in the office today for evaluation of her personal history of a tubular adenoma of the colon and need for colorectal cancer screening. I last saw Anu in October 2018, at which time she underwent a screening colonoscopy with removal of a small tubular adenoma. She presently feels well. She enjoys a good appetite, without any significant heartburn or dysphagia. Her bowel movements have been regular and without any signs of bleeding. She denies abdominal pain, jaundice, nor unintentional weight loss. She denies any family history of first-degree relatives with colorectal cancer. Examination Category Sub-Category Detail Notes Category Not es General Examination GENERAL APPEARANCE: pleasant , well nourished, well developed, in no acute distress HEAD: EYES: sclera non-icteric EARS: NOSE: THROAT: NECK/THYROID: no cervical lymphade nopathy, neck supple HEART: S1, S2 normal CHEST: LUNGS: clear to auscultatio n bilaterally ABDOMEN: normal bowel sounds, no guarding or rigidity, no guarding or rigidity, no masses palpable, soft, nontender, nondistended NEUROLOGIC: alert and oriented SKIN: nonjaundiced, no spi rocio angiomata EXTREMITIES: no edema PERIPHERAL PULSES: BACK: BREASTS: MUSCULOSKELETAL: MALE GENITOURINARY: LYMPH NODES: RECTAL EXAM: FEMALE GENITOURINARY: ORAL CAVITY: mucosa moist
--- OUTSIDE RECORDS SUMMARY | 2024-10-01 09:31 | XMS_ITS | Patient Health Record ---
Author Organization [facility] Address [address] [place] [address] Care Team Providers Care Dental Technician Instructor Name Role Phone Vianca Moreno MD Primary Care Provider Payam Aviles [phone] Allergies Allergen (clinical drug ingredient) Drug/Non Drug Allergy documented on EMR Reaction Allergy Type Onset Date Status penicillin G Penicillin G Potassium Unknown Drug Allergy Active Results Component Value Reference Range Notes Pathology (Not yet reviewed by provider) Interpretation: Performing Lab:[facility], [address] [place] [id number] Notes/Report: Name: Albin Diaz Age/Sex: 78/F : 1945 Unit#: [id number] Attend Dr: Payam Hawkins MD Re04/15/24 Status : [facility] Location: [facility] Disch: SPEC : [id number] RECD : 04/15/24 STATUS: BRIT [place] NUM: [id number] IVY: 04/15/[address] [facility] [address]: Payam Hawkins MD ENTERED: 04/15/24 SP TYPE: Surgical OTHR DR: Vianca Moreno MD ORDERED: HE Stain/3, Gross Micro L4 Diagnosis Colon, 40 cm, polype ctomy: Inflammatory polyp. Clinical History Pre-Op Dx: Screening Post-Op Dx: Colon po lyp, diverticulosis and hemorrhoids Microscopic Description Microscopic sections reviewed. Material Received Polyp at 40 Gross Description Received in formalin labeled ?polyp at 40? are 2 cristobal-pink irregular and papular tissue fragments measuring 0.15 and 0.4 cm, submitted in toto in a cassette labeled A. CEDS Copies To: Vianca Moreno MD [facility] [address] [place], [place] [id number] Payam Hawkins MD [facility] [address] [place] [address] [address] [place], [place] [id number] Signed (si gnature on file) Adán Velazco MD 04/16/24 1546 END OF REPORT Reason For Referral No Information Medications Medication SIG (Take, Route, Frequency, Duration) [...] Oral for 90 Active Vitamin D3 Active Immunizations Vaccine Route Administration Date Status Comme nts Influenza Unknown 05/08/2018 Administered Social History Tobacco Use: Social History Observation [...] Section Notes: nonsmoker; occasional glass of wine nonsmoker; occasional glass of wine Problems Problem Type SNOMED Code ICD Code Onset Dates Problem Status W/U Status Risk Notes Problem Colon cancer screening (593959364) Colon cancer screening (Z12.11) Active confirmed Problem 080959502 Encounter for screening for malignant neoplasm of colon (Z12.11) Active confirmed Problem History of adenomatous polyp of colon (377052865) History of adenomatous polyp of colon (Z86.010) Active confirmed Problem Pre-procedure evaluation check (136375180) Encounter for other preprocedural examination (Z01.818) Active confirmed Problem Diverticular disease of colon (240790053) Diverticulosis of large intestine without perforation or abscess without bleeding (K57.30) Active confirmed Problem 768089103751876 Pre-procedural examination (Z01.818) Active confirmed Vital Signs Blood pressure diastolic 00 mm Hg 12/19/2023 Height 64 in 12/19/2023 Blood pressure systolic 00 mm Hg 12/19/2023 Weight 130 lbs 12/19/2023 BMI 22.31 kg/m2 12/19/2023 Encounters Encounter Location Date Provider Diagnosis [facility] [address] [place] [id number] 04/15/2024 Payam Hawkins Colon cancer screeni ng Z12.11 ; Colon polyps K63.5 ; Diverticulosis of large intestine without perforation or abscess without bleeding K57.30 and Other hemorrhoids K64.8 [facility] [address] [place] [address] 12/19/2023 Payam Hawkins History of adenomato us polyp of colon Z86.010 ; Colon cancer screening Z12.11 and Encounter for other preprocedural examination Z01.818 Assessments Encounter Date Diagnosis (ICD Code) Assessment Notes Treatment Notes Treatment Clinical Notes Section Notes 04/15/2024 Colon cancer screening (ICD-10 - Z12.11) 04/15/2024 Colon polyps (ICD-10 - K63.5) 12/19/2023 Colon cancer screening (ICD-10 - Z12.11) [...] keep you advised of her progress. 12/19/2023 History of adenomatous polyp of colon [...] to keep you advised of her progress. 04/15/2024 Diverticulosis of large intestine without perforation or abscess without bleeding (ICD-10 - K57.30) 12/19/2023 Encounter for other preprocedural examination (ICD-10 [...] to keep you advised of her progress. 04/15/2024 Other hemorrhoids (ICD-10 - K64.8) Plan Of Treatment Pending Test Test Name Order Date Pathology 04/15/2024 Future Test Test Name Order Date COLONOSCOPY 08/05/2018 COLONOSCOPY 12/19/2023 Insurance Providers Payer Name Payer Address Payer Phone Subscriber Number Group Number Insured Name Patient Relationship to Insured Coverage Start Date Coverage End Date MEDICARE OF [place] [address] [place] [address] [id number] RICH DIAZBETH Self - patient is the insured MEDEX ATTN CLAIMS [address] [place] [address] [id number] RICH DIAZBETH Self - patient is the insured Medical (General) History Medical History History ICD Code Denies MO,DM,CVA,Lung disease,renal dise ase Neg. screening colonoscopy in 01/2008--so me diverticulosis Hyperlipidemia Osteoporosis Colonoscopy 10/2018 1 small tubular adeno nj Surgical History Surgery Date(Month/Year) Rotator cuff tear repair/right Tonsillectomy Partial shoulder replacement left 2020 Cataracts
--- OUTSIDE RECORDS SUMMARY | 2024-10-01 09:31 | XMS_ITS ---
Author Organization [facility] Address [address] [place] [address] Care Team Providers Care Framing And Hanging Name Role Phone Vianca Moreno MD Primary Care Provider Unavaila Ani Lawrence [phone] REASON FOR VISIT cx 07/15 Encounters Encounter Location Date Provider Diagnosis [facility] [address] [place] [address] 07/15/2023 Ani Reese Plan Of Treatment No Information Progress Notes * Anu DIAZ BDOB:[birth year] (78 yo F)Acc No.[id number]:07/15/2023 Patient:?Anu Diaz :1945???Age:78 Y???Sex:Female [address] [place], [address] * true * Date:? Generated for Printi ng/Faxing/eTransmitting on:?10/01/2024 09:30 AM EDT
--- OUTSIDE RECORDS SUMMARY | 2024-10-01 09:31 | XMS_ITS ---
Author Organization [facility] Address [address] [place] [address] Care Team Providers Care Extruding Department Supervisor Name Role Phone Vianca Moreno MD Primary Care Provider Ani Flores Unavailable [phone] Encounters Encounter Location Date Provider Diagnosis [facility] [address] [place] [address] 06/25/2023 Ani Reese Plan Of Treatment No Information Progress Notes * Anu DIAZ BDOB:[birth year] (79 yo F)Acc No.[id number]:06/25/2023 Progress Note Patient:?Anu DIAZ Provider:?Ani Reese DPM :1945???Age:77 Y???Sex:Female D ate:06/25/2023 Address:[address] [place], [place] [address]Kate [id number] Pcp:Vianca Moreno MD Subjective: * Chief Complaints: * ??? * Medical History:? Objective: * Vitals:? Assessment: Plan: * Treatment: * Images: * The named appointment provid er may or may not be the originator of this progress note, and it is not deemed complete until electronically signed by the appointment provider. Sign off status: Pending * Provider:?Ani Reese DPM Date:? Generated for Maribel pinzon/Aminta/Zoesmitting on:?10/01/2024 09:31 AM EDT
--- OUTSIDE RECORDS SUMMARY | 2024-10-01 09:32 | XMS_ITS ---
Author Organization [facility] Address [address] [place] [address] Care Team Providers Care Blueprint Cutter Name Role Phone Vianca Moreno MD Primary Care Provider Ani Flores [phone] Encounters Encounter Location Date Provider Diagnosis [facility] [address] [place] [address] 07/16/2023 Ani Reese Plan Of Treatment No Information Progress Notes * Anu DIAZ BDOB:[birth year] (79 yo F)Acc No.[id number]:07/16/2023 Progress Note Patient:?Anu DIAZ Provider:?Ani Reese DPM :1945???Age:78 Y???Sex:Female D ate:07/16/2023 Address:[address] [place], [place] [address]Kate PO-[id number] Pcp:Vianca Moreno MD Subjective: * Chief Complaints: * ??? * Medical History:? Objective: * Vitals:? Assessment: Plan: * Treatment: * Images: * The named appointment provid er may or may not be the originator of this progress note, and it is not deemed complete until electronically signed by the appointment provider. Sign off status: Pending * Provider:?Ani Reese DPM Date:?03/2024 Generated for Maribel pinzon/Aminta/Zoesmitting on:?10/01/2024 09:31 AM EDT
--- OUTSIDE RECORDS SUMMARY | 2024-10-01 09:32 | XMS_ITS | Patient Health Record ---
Author Organization [facility] Address [address] [place] [address] Care Team Providers Care Supervisor [place] Name Role Phone Vianca Moreno MD Primary Care Provider Ani Flores Unavailable [phone] Allergies Allergen (clinical drug ingredient) Drug/Non Drug Allergy documented on EMR Reaction Allergy Type Onset Date Status trees (uncoded) per pt no allergy 09/26/22 Allergy Active Penicillin rash Drug Allergy Active Reason For Referral No Information Medications Medication SIG (Take, Route, Frequency, Duration) Notes Start Date End Date Status Vitamin D Not-Taking Lovastatin Not-Takin g Atorvastatin Calcium 20 MG 1 tablet Orally Once a day for 30 day(s) Not-Taking Calcium + D Not-Taki ng Ciclopirox Olamine 0.77% external Apply to effected areas twice a day for 30 days 02/16/2016 Not-Taking amLODIPine Besylate 2.5 MG 1 tablet Orally twice a day for 30 days Active Irbesartan 300 MG 1 tablet Orally Once a day for 30 day(s) Active Vitamin D3 Active Crestor Active Social History Tobacco Use: Social History Observation Description Date Details (start date - stop date) Former Smoker NA - NA Tobacco Use/Smoking Question Answer Notes Are you a: former smoker Additional Findings: Tobacco Non-User Current no n-smoker Alcohol Screen Question Answer Notes Did you have a drink contain ing alcohol in the past year? Yes How often did you have a dri nk containing alcohol in the past year? Monthly or less (1 point) Points 1 Interpretation Negative Tobacco use other than smoking: Question Answer Notes Are you an other tobacco user? No Problems Problem Type SNOMED Code ICD Code Onset Dates Problem Status W/U Status Risk Notes Problem [id number] Hallux valgus (acquired), left foot (M20.12) Active confirmed Problem 869494067468194 Hallux valgus (acquired), right foot (M20.11) Active confirmed Problem 808708543 Hammer toe of right foot (M20.41) Active confirmed Problem 783639802 Hammer toe of left foot (M20.42) Active confirmed Plan Of Treatment Pending Test Test Name Order Date 27553-JKGGSHY NAIL, 1-11/03/2012 46765-IZZVSEP NAIL, -05/06/2012 95405-KAYWEDD NAIL, -08/06/2012 32816-Ezdswbht Plate 08/06/2012 71228-Dbwawbax Plate 05/06/2012 87518-Swgzinpk Plate 11/03/2012 12300-Bzknezrp Plate 02/18/2013 77140-Qeivtosc Plate 05/27/2013 04436-Aywerach Plate 02/02/2016 94335-Pwypelti Plate 02/16/2016 Insurance Providers Payer Name Payer Address Payer Phone Subscriber Number Group Number Insured Name Patient Relationship to Insured Coverage Start Date Coverage End Date Medicare National Govt [employer] [address] [place] [address] [id number] Anu Colón Self - patient is the insured [employer] Blue Shield [address] [place] [address] [phone] [id number] Anu Colón Self - patient is the insured Medical (General) History Medical History History ICD Code chicken pox hypercholesterolemia measles sinus conditions covid-19 High blood pressure chronic sinusitis Mumps Surgical History Surgery Date(Month/Year) tubal ligation 1982 rotator cuff tear repair-right 03/2013 partial shoulder replacement 2020 Hospitalization History Reason Date(Month/Year) [facility] [place] - damaged a vertabre 0 01/25/23
--- OUTSIDE RECORDS SUMMARY | 2024-10-01 09:32 | XMS_ITS ---
Author Organization [facility] Address [address] [place] [address] Care Team Providers Care Supply Chain Analyst Name Role Phone Vianca Moreno MD Primary Care Provider Unavaila Payam Morfin Unavailable [phone] REASON FOR VISIT screening,hx polyps Problems Problem Type SNOMED Code ICD Code Onset Dates Problem Status W/U Status Risk Notes Problem Diverticular disease of colon (876153651) Diverticulosis of large intestine without perforation or abscess without bleeding (K57.30) Active confirmed Encounters Encounter Location Date Provider Diagnosis [facility] [place] [address] [place], [place] [id number] 04/15/2024 Payam Hawkins Colon cancer scree kaden [...] * MAYELA DIAZ BDOB:[birth year] (79 yo F)Acc No.[id number]:04/15/2024 COLON WITH MAC Patient:?MAYELA DIAZ Provider:?Payam Hawkins MD :1945???Age:78 Y???Sex:Female D ate:04/15/2024 Address:[address] [place] [address], [place] Pcp:Vianca Moreno MD Subjective: * Chief Complaints: * ???1. Screening,hx polyps. * Medical History:? Objective: * Vitals:? Assessment: * Assessment: 1.?Colon cancer screening - Z12.11 (Primary)???2.?Colon polyps - K63.5???3.?Diverticulosis of large intestine without perforation or abscess without bleeding - K57.30???4.?Other hemorrhoids - K64.8??? Plan: * Treatment: * Procedure Codes:?83543 LESIO N REMOVAL COLONOSCOPY, Modifiers: PT , 51868 COLONOSCOPY AND BIOPSY, Modifiers: 59 , PT, 0529F INTRVL 3+YRS PTS CLNSCP DOCD, 0528F RCMND FLW-UP 10 YRS DOCD, Modifiers: 1P * * The named appointment provid er may or may not be the originator of this progress note, and it is not deemed complete until electronically signed by the appointment provider. Sign off status: Pending * Provider:?Payam Hawkins MD Date:? 024 Generated for Maribel pinzon/Aminta/Zoesmitting on:?10/01/2024 09:31 AM EDT
== END 2024-10-01 09:52 | disposition home or self-care (01) ==
LOC: HO.HMCC 08:45
PROVIDERS: PCP Internal Medicine; Visit Provider Internal Medicine
DX: M81.0 Age-related osteoporosis without current pathological fracture (principal)

== ENCOUNTER → 2024-10-01 08:44 | Outpatient (BNVA) | payer MEDICARE, SELFPAY | PROVIDERS: PCP Internal Medicine; Visit Provider Internal Medicine | DX: M81.0 Age-related osteoporosis without current pathological fracture (principal) | CPT/HCPCS: 96372; J0897 ==

== ENCOUNTER 2024-12-01 06:24 | Outpatient (REF) | payer MEDICARE, SELFPAY ==
[2024-12-01 11:01] LABS: Alanine Aminotransferase 23 U/L (0-31); Albumin Level 4.4 g/dL (3.5-5.0); Alkaline Phosphatase 52 U/L (39-117); Anion Gap 11 (12-20); Aspartate Amino Transferase 30 U/L (5-31); Bilirubin Total 0.6 mg/dL (0.0-1.0); Blood Urea Nitrogen 13 mg/dL (9-16); Calcium 9.1 mg/dL (8.4-10.2); Carbon Dioxide 26 mmol/L (22-29); Chloride 102 mmol/L (96-108); Estimated Glomerular Filt Rate > 60; Glucose Fasting 82 mg/dL (60-99); Sodium 135 mmol/L (135-145); Vitamin D 25-OH Total 46.5 ng/mL (>30)
== END 2024-12-01 06:25 | disposition home or self-care (01) ==
LOC: HO.HMGCLDS 06:24
PROVIDERS: PCP Internal Medicine; Visit Provider Internal Medicine
DX: I10 Essential (primary) hypertension (principal); E55.9 Vitamin D deficiency, unspecified
CPT/HCPCS: 36415; 80053; 82306

== ENCOUNTER 2024-12-02 12:57 | Outpatient (AMB) | payer MEDICARE, SELFPAY ==
[2024-12-02 13:09] VITALS: BP 124/70; PULSE 79; RESP 18; TEMP 36.5; O2SAT 96; BMI 23.5
--- NOTE | 2024-12-02 13:09 | A.OFFPC_ITS ---
Vital Signs 12/02/24 13:09 Height 5 ft 4 in Weight 137 lb BMI 23.5 BP 124/70 Blood Pressure Location Lt brachial Position Sitting Respiration 18 Pulse 79 Pulse Source Pulse Oximeter Temp 97.7 F Temp Source Oral Pulse Oximetry (%) 96 Oxygen Delivery Method Room Air Intake Visit Reasons: 6 months follow up Intake Note: Pt is here today for 6 months follow up visit. Allergies Penicillins [PENICILLINS] Allergy (Intermediate, Verified 12/02/24 13:09) RASH atorvastatin [From Lipitor] Adverse Reaction (Intermediate, Verified 12/02/24 13:09) knee pain Medication List - Last Reconciled 12/02/24 by Vianca Moreno MD amlodipine 2.5 mg PO BID cholecalciferol (vitamin D3) (Vitamin D3) 25 mcg PO QPM irbesartan 300 mg PO DAILY lidocaine 5% 1 patch topical DAILY loratadine (Claritin) 10 mg PO DAILY PRN ddvezdsqtrpu-yvywbnpj-buuquu 1 tab PO DAILY Prolia (denosumab) 60 mg subcut [id number] NS rosuvastatin 5 mg PO DAILY Tobacco use date assessed: 12/02/24 Fall risk assessment: No Falls in past year Last assessed Fall Risk: 12/02/24 Dental Screening Dental Screen Date: 12/02/24 Did you have a dental visit in the last 12 months?: Yes Did you have a dental problem in the last 6 months where you did not have access to dental care?: No Was dental information given to patient?: Patient has dentist HPI 6 months follow up HPI Details Pt presents for f/u HTN and osteoporosis, stable on meds. PFSH Medical History Hyponatremia Vitamin D deficiency Family history of anesthesia complication Osteoporosis Elevated cholesterol HTN (hypertension) Surgical History Hx of cataract extraction H/O shoulder replacement Hx of tubal ligation Hx of colonoscopy Hx of tonsillectomy Hx of rotator cuff surgery Family History Father Cancer Mother Hypertension Social History Household Members Other:: , 4 children, 7 grandsons, 1 granddaughter Housing: House Unable to assess alcohol history related to: Unable to respond Patient Tobacco Use Status: Former Tobacco user e-Cigarette/Vaping Use: Never Used Second Hand Smoke Exposure: No Advance Directives Date on File: 05/03/20 service: No Current occupational status: retired Cognitive needs: No Hearing needs: No Vision needs: No Questionnaire PHQ-9 Over the last 2 weeks, how often have you been bothered by any of the following problems? 1. Little interest or pleasure in doing things: not at all 2. Feeling down, depressed, or hopeless: not at all 3. Trouble falling or staying asleep, or sleeping too much: not at all 4. Feeling tired or having little energy: not at all 5. Poor appetite or overeating: not at all 6. Feeling bad about yourself - or that you are a failure or have let yourself or your family down: not at all 7. Trouble concentrating on things, such as reading the newspaper or watching television: not at all 8. Moving or speaking so slowly that other people could have noticed. Or the opposite - being so fidgety or restless that you have been moving around a lot more than usual: not at all 9. Thoughts that you would be better off or of hurting yourself in some way: not at all Total score: 0 Depression Screening Interpretation: Negative Depression Screening Done: Yes 61336 - PHQ-9 Billing: Yes Source: Developed by Drs. Payam Levine, Cher Kincaid, Dimitrios Valenzuela and colleagues, with an educational ameena from [employer]. Thrive Questionnaire Date Thrive assessed: 12/02/24 I am a: Patient What is your living situation today?: I have a steady place to live Within the past 12 months, did the food you bought not last and you didn't have the money to get more?: Never true Within the past 12 months, did you worry whether your food would run out before you got money to buy more?: Never true Do you have trouble paying for medicines?: No Do you have trouble getting transportation to medical appointments?: No Do you have trouble paying your heating and electricity bill?: No Do you have trouble taking care of your child, family member or friend?: No Do you have trouble with day-to-day activities such as bathing, preparing meals, shopping, managing finances, etc.?: No Are you currently unemployed and looking for a job?: No Are you interested in more education?: No Please select the resources that you would like help with: None Currently or been in a relationship where the following occur: No concerns reported THRIVE Score: 0 AUDIT C Alcohol Use Questionnaire (AUDIT-C) 1. How often do you have a drink containing alcohol?: 2-4 times a month 2. How many drinks containing alcohol do you have on a typical day when you are drinking?: 1 or 2 3. How often do you have six or more drinks on one occasion?: Never Total Score: 2 NASEEM-7 AMB Questionnaire NASEEM-7 Date NASEEM - 7 assessed: 12/02/24 Feeling nervous, anxious, or on edge: 0 = Not at all Not being able to stop or control worryin = Not at all Worrying too much about different things: 0 = Not at all Trouble relaxin = Not at all Being so restless that it is hard to sit still: 0 = Not at all Becoming easily annoyed or irritable: 0 = Not at all Feeling afraid as if something awful might happen: 0 = Not at all Total NASEEM-7 score (0-4 normal; 5-9 mild; 10-14 moderate; 15-21 severe): 0 Source: Developed by Drs. Payam Levine, Cher Kincaid, Dimitrios Valenzuela and colleagues, with an educational ameena from [employer]. NASEEM-7 Assessment Billing NASEEM-7 Assessment Tool: NASEEM-7 Assessment 32661 Review of Systems Const All systems reviewed & are unremarkable except as noted in HPI and below Reports no additional complaints Eyes Reports no additional complaints ENT Reports no additional complaints Card Reports no additional complaints Resp Reports no additional complaints GI Reports no additional complaints Reports no additional complaints Physical exam (Primary Care) Vital Signs: Last Vital Signs Temp 97.7 F 12/02/24 13:09 Pulse 79 12/02/24 13:09 Resp 18 12/02/24 13:09 BP 124/70 12/02/24 13:09 Pulse Ox 96 12/02/24 13:09 Oxygen Delivery Method Room Air 12/02/24 13:09 BMI result Body Mass Index 23.5 Tobacco/Smoking Status: Tobacco use Status Tobacco use date assessed 12/02/24 12/02/24 13:11 Patient Tobacco Use Status Former Tobacco user 12/02/24 13:11 e-Cigarette/Vaping Use Never Used 12/02/24 13:11 PHQ-9: PHQ-9 Score PHQ-9: Total score 0 12/02/24 13:11 Depression Screening Interpretation: Negative Thrive Assessment: Date of Thrive Assessment Date Thrive assessed 12/02/24 12/02/24 13:11 Currently or been in a relationship where the following occur: No concerns reported Const General: no acute distress HENMT Ears: hearing grossly normal bilaterally Eyes General: appearance normal, both eyes and all related structures Resp Effort & Inspection: normal respiratory effort Auscultation: clear to auscultation bilaterally Cardio Rhythm: regular rhythm Heart sounds: S1 normal heart sound present and S2 normal heart sound present GI Inspection: Yes normal to inspection Palpation (GI): Soft to palpation Percussion: Yes normal to percussion Auscultation: normal bowel sounds Immunizations pneumoc 20-rhonda conj-dip cr(PF) 0.5 mL IM syringe Performing Provider: Vianca Moreno MD Performing Location: [facility] [place] [facility] Administered by: ANDER Mcdonald on 12/02/24 14:20 Dose Route Admin Location Dispensed Lot Number Expiration Date [facility] [employer] 0.5 mL IM Left Deltoid 0.5 mL [id number] 10/05/25 [id number] WYETH/PFIZER VIS Given Date VIS Provided VIS Publication Date 12/02/24 Single Vaccine 21 Eligibility Eligibility Date Funding Source Not [facility] Eligible 12/02/24 Private Coding Level of Care Code Est Pt Level 4 (37871) Complex EM visit Add On G2211 Diagnoses HTN (hypertension) I10 Elevated cholesterol E78.00 Osteoporosis M81.0 Additional Codes NASEEM-7 Assessment Billing - NASEEM-7 Assessment Tool: NASEEM-7 Assessment 15536 ([id number]) PHQ-9 - 08481 - PHQ-9 Billing: Yes ([id number]) Assessment & Plan Assessment & Plan (1) HTN (hypertension): Code(s): I10 - Essential (primary) hypertension Category: Medical Plan: Continue medications (2) Elevated cholesterol: Comment: Intolerant to Lipitor knee pain Code(s): E78.00 - Pure hypercholesterolemia, unspecified Category: Medical Plan: Continue rosuvastatin (3) Osteoporosis: Comment: took fosamax for 6 years, DEXA 10/2020 4.4% improved from baseline, T score -2.3 R femur, stop 12/2020, started Prolia 03/30 for 2 years and and repeat DEXA in 11/2024 Code(s): M81.0 - Age-related osteoporosis without current pathological fracture Category: Medical Plan: Continue Prolia check DEXA in March, follow-up in 6 months with a fasting labs before Orders: Orders Comprehensive [place]. Panel Fast 6 Months E78.00 - Pure hypercholesterolemia, unspecified, I10 - Essential (primary) hypertension, M81.0 - Age-related o steoporosis without current pathological fracture TSH reflex Free T4 6 Months E78.00 - Pure hypercholesterolemia, unspecified, I10 - Essential (primary) hypertension, M81.0 - Age-related osteoporosis without current pathological fracture Vitamin D 25-OH (D2 and D3) 6 Months E78.00 - Pure hypercholesterolemia, unspecified, I10 - Essential (primary) hypertension, M81.0 - Age-related osteoporosis without current pathological fracture Pneumococcal 20 Immunization Today Z23 - Encounter for immunization Complete Blood Count Auto Diff 6 Months E78.00 - Pure hypercholesterolemia, unspecified, I10 - Essential (primary) hypertension, M81.0 - Age-related osteoporosis without current pathological fracture Lipid Panel 6 Months E78.00 - Pure hypercholesterolemia, unspecified, I10 - Essential (primary) hypertension, M81.0 - Age-related osteoporosis without current pathological fracture Medications: Refilled Prolia (denosumab) 60 mg subcut [id number] 1 mL 1RF NS
--- OUTSIDE RECORDS SUMMARY | 2024-12-02 13:42 | XMS_ITS ---
Author Organization [facility] Address [address] [place] [address] Care Team Providers Care General Road Foreman Name Role Phone Vianca Moreno MD Primary Care Provider Unavaila Douglas Quintero Unavailable [phone] Ani Reese Unavailable [phone] REASON FOR VISIT cx 07/15 Encounters Encounter Location Date Provider Diagnosis [address] [address] 07/15/2023 Ani Reese Plan Of Treatment Next Appt Details Provider Name:Douglas Ponce , 02/09/2025 09:00:00 AM, [address] [place], [address], Progress Notes * Anu DIAZ BDOB:[birth year] (78 yo F)Acc No.[id number]:07/15/2023 Patient:?Anu Diaz :1945???Age:78 Y???Sex:Female Address:[address] [place], [address] * true * Date:? Generated for Printi ng/Faxing/eTransmitting on:?12/02/2024 01:41 PM EDT
== END 2024-12-02 14:49 | disposition home or self-care (01) ==
LOC: HO.HMCC 12:58
PROVIDERS: PCP Internal Medicine; Visit Provider Internal Medicine
DX: I10 Essential (primary) hypertension (principal); E78.00 Pure hypercholesterolemia, unspecified; M81.0 Age-related osteoporosis without current pathological fracture; Z23 Encounter for immunization

== ENCOUNTER → 2024-12-02 12:57 | Outpatient (BNVA) | payer MEDICARE, SELFPAY | PROVIDERS: PCP Internal Medicine; Visit Provider Internal Medicine | DX: Z23 Encounter for immunization (principal); I10 Essential (primary) hypertension; E78.00 Pure hypercholesterolemia, unspecified; M81.0 Age-related osteoporosis without current pathological fracture | CPT/HCPCS: 90471; 90677; 96127; 99212 ==

== ENCOUNTER 2025-02-23 08:34 | Outpatient (REF) | payer MEDICARE, SELFPAY ==
--- OUTSIDE RECORDS SUMMARY | 2023-05-06 18:52 | XMS_ITS | Encounter Summary ---
Author Organization [facility] Address [address] [facility] [address] [place] [phone] Phone Care Team Providers Care Construction Representative Name Role Phone Vianca Moreno MD Primary Care Provider [phone] Encounter Details Date Type Department Care Team (Late st Contact Info) Description 05/06/2023 6:52 PM EDT Hospital Encounter [facility] [address] [place] [address] [phone] Megan Trujillo, EDITING CLERK [address] [place] [address] [email or web address] Social History Tobacco Use Types Packs/Day Years [...] inetiology. Correlate with point tenderness. Megan Trujillo EDITING CLERK IMG XR LOWER EXTREMITY Final Result documented in this encounter Visit Diagnoses Not on filedocumented in this encounter Care Teams Construction Representative Relationship Specialty Start Date End Date Vianca Moreno MD [address] [place] [address] PCP - General Internal Medicine 05/06/23 documented as of this encounter Additional Source Comments The information contained in this document represents components of the legal health record. It is not the complete legal health record.[facility]
--- NOTE | ~2025-02-23 | MM_ITS ---
EXAMINATION: DXA BONE DENSITY AXIAL HISTORY: M81.0 - Age-related osteoporosis without current pathological fracture TECHNIQUE: [employer] Dual energy absorptiometry (DEXA) of the lumbar spine, total left hip, and femoral neck was performed. COMPARISON: Comparison is made with the prior examination dated 02/20/2023. FINDINGS: The bone mineral density of the lumbar spine is 0.934 g/cm2, corresponding to a T-score of -2.0, and a Z-score of -0.1. This is indicative of osteopenia. This represents a BMD change of 6.5% compared to the prior exam. This is statistically significant. The bone mineral density of the left total hip is 0.795 g/cm2, corresponding to a T-score of -1.7, and a Z-score of 0.4. This is indicative of osteopenia. This represents a BMD change of 6.3% compared to the prior exam. This is statistically significant. The bone mineral density of the left femoral neck is 0.743 g/cm2, corresponding to a T-score of -2.1, and a Z-score of 0.1. This is indicative of osteopenia. This represents a BMD change of 5.5% compared to the prior exam. FRACTURE RISK: The FRAX index suggests a ten year probability of major osteoporotic fracture of 22.1%, and of hip fracture 6.3%. MM/XR DEXA axial skeleton IMPRESSION: Based on bone mineral density, and according to World Health Organization (WHO) criteria, the diagnosis is consistent with osteopenia. Statistically, 68% of repeat scans fall within 1 SD (+/- 0.010 g/cm2 for AP spine L1-L4) and 1 SD (+/- 0.012 g/cm2 for femur total) FRAX is a trademark of the [employer]'s [place] for Metabolic Bone Disease, a World Health Organization (WHO) Collaborating Center. Electronically signed by: Payam Vital MD 02/23/2025 09:23 AM EDT
--- OUTSIDE RECORDS SUMMARY | 2025-02-23 09:17 | XMS_ITS | Patient Health Record ---
Author Organization [facility] Address [address] [place] [address] Care Team Providers Care Prototype Model Maker Name Role Phone Vianca Moreno MD Primary Care Provider Payam Aviles Unavailable [phone] Allergies Allergen (clinical drug ingredient) Drug/Non Drug Allergy documented on EMR Reaction Allergy Type Onset Date Status penicillin G Penicillin G Potassium Unknown Drug Allergy Active Results Component Value Reference Range Notes Pathology (Not yet reviewed by provider) Interpretation: Performing Lab:[facility], [address] [place] [phone] Notes/Report: Reason For Referral No Information Medications Medication [...] Status Risk Notes Problem Colon cancer screening (152074276) Colon cancer screening (Z12.11) Active confirmed Problem 598658067 Encounter for screening for malignant neoplasm of colon (Z12.11) Active confirmed Problem History of adenomatous polyp of colon (324655780) History of adenomatous polyp of colon (Z86.010) Active confirmed Problem Pre-procedure evaluation check (258160888) Encounter for other preprocedural examination (Z01.818) Active confirmed Problem Diverticular disease of colon (218833527) Diverticulosis of large intestine without perforation or abscess without bleeding (K57.30) Active confirmed Problem 087981608410467 Pre-procedural examination (Z01.818) Active confirmed Encounters Encounter Location Date Provider Diagnosis [facility] [address] [place] [phone] 04/15/2024 Payam Hawkins Colon cancer scree kaden [...] Date MEDICARE OF [place] [address] [place] [address] [id number] MAYELA DIAZ Self - patient is the insured MEDEX ATTN CLAIMS [address] [place] [address] [id number] 2 MAYELA DIAZ Self - patient is the insured Medical (General) History Medical History History ICD Code Denies [place],DM,CVA,Lung disease,renal dise ase Neg. screening colonoscopy in 01/2008--so me diverticulosis Hyperlipidemia Osteoporosis Colonoscopy 10/2018 1 small tubular adeno [place] Surgical History Surgery Date(Month/Year) Rotator cuff tear repair/right Tonsillectomy Partial shoulder replacement left 2020 Cataracts
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
== END 2025-02-23 08:35 | disposition home or self-care (01) ==
LOC: HO.MAMMO 08:34
PROVIDERS: PCP Internal Medicine; Visit Provider Internal Medicine
DX: M81.0 Age-related osteoporosis without current pathological fracture (principal)
CPT/HCPCS: 77080

== ENCOUNTER → 2025-02-23 08:45 | Outpatient (BNV) | payer MEDICARE, SELFPAY | PROVIDERS: PCP Internal Medicine; Visit Provider Radiology Diagnostic Radiology | DX: E28.39 Other primary ovarian failure (principal) | CPT/HCPCS: 77080 ==

== ENCOUNTER 2025-03-29 11:14 | Outpatient (REF) | payer MEDICARE, SELFPAY ==
--- OUTSIDE RECORDS SUMMARY | 2023-05-06 18:52 | XMS_ITS | Encounter Summary ---
Author Organization [facility] Address [address] [employer] [facility] [address] [place] [phone] Phone Care Team Providers Care Bread Panner Name Role Phone Vianca Moreno MD Primary Care Provider Encounter Details Date Type Department Care Team (Late st Contact Info) Description 05/06/2023 6:52 PM EDT Hospital Encounter [facility] [address] [place] [address] [phone] Megan Trujillo, SLAB STRIPPER [address] [place] [address] Social History Tobacco Use Types Packs/Day Years [...] inetiology. Correlate with point tenderness. Megan Trujillo SLAB STRIPPER IMG XR LOWER EXTREMITY Final Result documented in this encounter Visit Diagnoses Not on filedocumented in this encounter Care Teams Bread Panner Relationship Specialty Start Date End Date Vianca Moreno MD [address] [facility] [place] [address] PCP - General Internal Medicine 05/06/23 documented as of this encounter Additional Source Comments The information contained in this document represents components of the legal health record. It is not the complete legal health record.[facility]
--- OUTSIDE RECORDS SUMMARY | 2024-04-15 03:30 | XMS_ITS ---
Author Organization [facility] Address [address] [place] [address] Care Team Providers Care Home Hospice Rn Name Role Phone Vianca Moreno MD Primary Care Provider Unavaila Payam Morfin Unavailable [phone] REASON FOR VISIT screening,hx polyps Problems Problem Type SNOMED Code ICD Code Onset Dates Problem Status W/U Status Risk Notes Problem Diverticular disease of colon (200473063) Diverticulosis of large intestine without perforation or abscess without bleeding (K57.30) Active confirmed Encounters Encounter Location Date Provider Diagnosis [facility] [place] Out[place] [address], [place] [phone] 04/15/2024 Payam Hawkins Colon cancer scree kaden [...] * MAYELA DIAZ BDOB:[birth year] (79 yo F)Acc No.[id number]:04/15/2024 COLON WITH MAC Patient: MAYELA TOPETE Provider: Ashley Hawkins MD :1945 A ge:78 Y S ex:Female Date:04/15/2024 Address:[address] [place] [address], [place], [place] Pcp:Vianca Moreno MD Subjective: * Chief Complaints: * 1 . Screening,hx polyps. * Medical History: Objective: * Vitals: Assessment: * Assessment: 1. C olon cancer screening - Z12.11 (Primary) 2 . C olon polyps - K63.5? 3. D iverticulosis of large intestine without perforation or abscess without bleeding - K57.30 4 . O ther hemorrhoids - K64.8 Plan: * Treatment: * Procedure Codes: 4 5385 LESION REMOVAL COLONOSCOPY, Modifiers: [place] , [address] COLONOSCOPY AND BIOPSY, Modifiers: 59 , PT, 0529F INTRVL 3+YRS PTS CLNSCP DOCD, 0528F RCMND FLW-UP 10 YRS DOCD, Modifiers: 1P * * The named appointment provid er may or may not be the originator of this progress note, and it is not deemed complete until electronically signed by the appointment provider. Sign off status: Pending * Provider: Ashley Hawkins MD Date: Generated for Maribel pinzon/Aminta/Robitting on: 0 03/29/2025 01:55 PM EDT
[2025-03-29 11:31] VITALS: BP 150/72; PULSE 73; RESP 16; O2SAT 99; BMI 22.3
--- OUTSIDE RECORDS SUMMARY | 2025-03-29 13:56 | XMS_ITS | Patient Health Record ---
Author Organization [facility] Address [address] [place] [address] Care Team Providers Care Asbestos Shingle Inspector Name Role Phone Vianca Moreno MD Primary Care Provider Payam Aviles Unavailable [phone] Allergies Allergen (clinical drug ingredient) Drug/Non Drug Allergy documented on EMR Reaction Allergy Type Onset Date Status penicillin G Penicillin G Potassium Unknown Drug Allergy Active Results Component Value Reference Range Notes Pathology (Not yet reviewed by provider) Interpretation: Performing Lab:[facility], [address] [place] [id number] Notes/Report: Reason For Referral No Information Medications [...] Status Risk Notes Problem Colon cancer screening (024722010) Colon cancer screening (Z12.11) Active confirmed Problem 932378783 Encounter for screening for malignant neoplasm of colon (Z12.11) Active confirmed Problem History of adenomatous polyp of colon (401610901) History of adenomatous polyp of colon (Z86.010) Active confirmed Problem Pre-procedure evaluation check (494004440) Encounter for other preprocedural examination (Z01.818) Active confirmed Problem Diverticular disease of colon (608470172) Diverticulosis of large intestine without perforation or abscess without bleeding (K57.30) Active confirmed Problem 854471319185092 Pre-procedural examination (Z01.818) Active confirmed Encounters Encounter Location Date Provider Diagnosis [facility] [address] [place] [phone] 04/15/2024 Payam Hawkins Colon cancer scree kaden [...] OF [place] [address] [place] [address] [id number] MAYELA DIAZ Self - patient is the insured MEDEX ATTN CLAIMS [address] [place] [address] [id number] 2 MAYELA DIAZ Self - patient is the insured Medical (General) History Medical History History ICD Code Denies [place],DM,CVA,Lung disease,renal dise ase Neg. screening colonoscopy in 01/2008--so me diverticulosis Hyperlipidemia Osteoporosis Colonoscopy 10/2018 1 small tubular adeno ma Surgical History Surgery Date(Month/Year) Rotator cuff tear repair/right Tonsillectomy Partial shoulder replacement left 2020 Cataracts
--- OUTSIDE RECORDS SUMMARY | 2025-03-29 13:56 | XMS_ITS | Clinical Summary ---
Author Organization [facility] Address [address] [facility] [address] [place] [address] Phone Care Team Providers Care Dairy Farmer Name Role Phone Vianca Moreno MD Primary Care Provider [phone] Allergies Active Allergy Reactions Criticality Noted Date Comments Penicillins Erythema Multiforme,Rash Low 05/06/2023 Medications irbesartan (AVAPRO) 300 MG tablet Take 300 mg by mouth daily. Active amLODIPine (NORVASC) 2.5 MG tablet Take 2.5 mg by mouth daily. Active cholecalciferol (VITAMIN D3) 2,000 unit capsule Take by mouth daily. Active PROLIA 60 mg/mL Syrg subcutaneous syringe INJECT 60 MG SUBCUTANEOUSLY EVERY 6 MONTHS. 03/14/20 23 Active Active Problems No known active problems Social History Tobacco Use Types Packs/Day Years [...] on file Sexual Orientation Not on file Last Filed Vital Signs Vital Sign Reading Time Taken Comments Blood Pressure 161/81 05/06/2023 6:32 PM EDT Pulse 75 05/06/2023 6:32 PM EDT Temperature 37 C (98.6 F) 05/06/2023 6:32 PM EDT Respiratory Rate 18 05/06/2023 6:32 PM EDT Oxygen Saturation 97% 05/06/2023 6:32 PM EDT Inhaled Oxygen Concentration - - Weight - - Height - - Body Mass Index - - Plan of Treatment Health Maintenance Due Date Last Done Comments CREATININE LEVEL 1945 LIPID PANEL 1945 POTASSIUM LEVEL 1946 DEPRESSION SCREENING 1958 SMOKING Hx and SMOKELESS TOBACCO SCREENING 1959 HEPATITIS C SCREENING 1964 ZOSTER VACCINES (1 of 2) 1996 OSTEOPOROSIS SCREENING INITIAL (ONE-TIME) 2011 INFLUENZA VACCINE (#1) 2025 , 05/12/2022, 05/12/2021, Additional history exists COVID-19 VACCINE ( season) 2025 04/17/2023, 06/19/2022, 10/30/2021, Additional history exists Adult Td,Tdap Booster 04/22/2030 04/22/2020, 020 PNEUMOCOCCAL VACCINES (50+ years) Completed 05/13/2019, 08/21/2017 RSV VACCINE Completed 03/27/2023 HEPATITIS A VACCINES Aged Out No long er eligible based on patient's age to complete this topic HIB VACCINES Aged Out No longer eligi ble based on patient's age to complete this topic MENINGOCOCCAL VACCINES (ACWY) Aged Out No longer eligible based on patient's age to complete this topic MENINGOCOCCAL VACCINES (B) Aged Out N o longer eligible based on patient's age to complete this topic Medical Devices Not on file Insurance MEDICARE PART A & B Member Subscriber Plan / Payer (Ef fective 2011-Present) Name:EldonEricaAnu Member ID:[id number] Relation to Subscriber:Self Name:Bre Colónbeth Subscriber ID:[id number] Payer ID:[id number] Group ID:Not on file Type:Medicare Address: [employer] [address] [place] [address] [employer] CROSS MEDEX SUPPLEMENT MEDICARE PART A & B Member Subscriber Plan / Payer ( fective 2011-Present) Name:Anu Colón Member ID:[id number] Relation to Subscriber:Self Name:Anu Colón Subscriber ID:[id number] Payer ID:[id number] Group ID:Not on file Type:Medicare Address: [employer] [address] [place] [address] [employer] MEDEX SUPPLEMENT MEDICARE PART A & B Member Subscriber Plan / Payer ( fective 2011-Present) Name:Anu Colón Member ID:[id number] Relation to Subscriber:Self Name:Anu Colón Subscriber ID:[id number] Payer ID:[id number] Group ID:Not on file Type:Medicare Address: [employer] [address] [place] [id number] [employer] MEDEX SUPPLEMENT MEDICARE PART A & B Member Subscriber Plan / Payer ( fective 2011-Present) Name:Anu Colón Member ID:[id number] Relation to Subscriber:Self Name:Anu Colón Subscriber ID:[id number] Payer ID:[id number] Group ID:Not on file Type:Medicare Address: [employer] [address] [place] [address] [employer] MEDEX SUPPLEMENT MEDICARE PART A & B [employer] MEDEX SUPPLEMENT MEDICARE PART A & B BLUE CROSS MEDEX SUPPLEMENT Care Teams Dairy Farmer Relationship Specialty Start Date End Date Vianca Moreno MD [address] [place] [address] PCP - General Internal Medicine 05/06/23 Additional Source Comments The information contained in this document represents components of the legal health record. It is not the complete legal health record.[facility]
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
== END 2025-03-29 11:15 | disposition home or self-care (01) ==
LOC: HO.MS 11:14
PROVIDERS: PCP Internal Medicine; Visit Provider Ophthalmology
PROC: (CPT 66821; principal; 2025-03-29 14:00)
DX: H26.491 Other secondary cataract, right eye (principal)
CPT/HCPCS: 66821

== ENCOUNTER 2025-05-26 07:44 | Outpatient (REF) | payer MEDICARE, SELFPAY ==
--- OUTSIDE RECORDS SUMMARY | 2023-05-06 17:52 | XMS_ITS | Encounter Summary ---
Author Organization [facility] Address [address] [employer] [facility] [address] [place] [address] Phone Care Team Providers Care Excelsior Cutter Name Role Phone Vianca Moreno MD Primary Care Provider [phone] Encounter Details Date Type Department Care Team (Late st Contact Info) Description 05/06/2023 6:52 PM EDT Hospital Encounter [facility] [address] [place] [address] [phone] Megan Trujillo, CUTTER GRIND TOOL TECHNICIAN [address] [place] [address] [email or web address] Social History Tobacco Use Types Packs/Day Years [...] inetiology. Correlate with point tenderness. Megan Trujillo CUTTER GRIND TOOL TECHNICIAN IMG XR LOWER EXTREMITY Final Result documented in this encounter Visit Diagnoses Not on filedocumented in this encounter Care Teams Excelsior Cutter Relationship Specialty Start Date End Date Vianca Moreno MD [address] [place] [address] PCP - General Internal Medicine 05/06/23 documented as of this encounter Additional Source Comments The information contained in this document represents components of the legal health record. It is not the complete legal health record.[facility]
--- OUTSIDE RECORDS SUMMARY | 2024-04-15 02:30 | XMS_ITS ---
Author Organization [facility] Address [address] [place] [address] Care Team Providers Care Rehab Consultant Name Role Phone Vianca Moreno MD Primary Care Provider Unavaila Payam Morfin Unavailable [phone] REASON FOR VISIT screening,hx polyps Problems Problem Type SNOMED Code ICD Code Onset Dates Problem Status W/U Status Risk Notes Problem Diverticular disease of colon (950488165) Diverticulosis of large intestine without perforation or abscess without bleeding (K57.30) Active confirmed Encounters Encounter Location Date Provider Diagnosis [facility] [place] Outpatient [address] [place], [place] [phone] 04/15/2024 Payam Hawkins Colon cancer scree kaden Z12.11 ; Colon polyps K63.5 ; Diverticulosis of large intestine without perforation or abscess without bleeding K57.30 and Other hemorrhoids K64.8 Assessments Encounter Date Diagnosis (ICD Code) Assessment Notes Treatment Notes Treatment Clinical Notes Section Notes 04/15/2024 Colon cancer screening (ICD-10 - Z12.11) 04/15/2024 Colon polyps (ICD-10 - K63.5) 04/15/2024 Diverticulosis of large intestine without perforation or abscess without bleeding (ICD-10 - K57.30) 04/15/2024 Other hemorrhoids (ICD-10 - K64.8) Plan Of Treatment No Information Progress Notes * MAYELA DIAZ BDOB:[birth year] (79 yo F)Acc No.[id number]:04/15/2024 COLON WITH MAC Patient: MAYELA TOPETE Provider: Ashley Hawkins MD :1945 A ge:78 Y S ex:Female Date:04/15/2024 Address:[address] [place] [address], [place], [place] Pcp:Vianca Moreno MD Subjective: * Chief Complaints: * S creening,hx polyps Assessment: * Assessment: 1. C olon cancer screening - Z12.11 (Primary) 2 . C olon polyps - K63.5? 3. D iverticulosis of large intestine without perforation or abscess without bleeding - K57.30 4 . O ther hemorrhoids - K64.8 Plan: * Procedure Codes: 4 5385 LESION REMOVAL COLONOSCOPY, Modifiers: [place] [address] COLONOSCOPY AND BIOPSY, Modifiers: 59 , [id number] INTRVL 3+YRS PTS CLNSCP [id number] RCMND FLW-UP 10 YRS DOCD, Modifiers: 1P Billing Information: * Procedure Codes: 53291 LESION REMOVAL COLONOSCOPY. [place]: [place] [address] COLONOSCOPY AND BIOPSY. Modifiers: 59, PT 0529F INTRVL 3+YRS PTS CLNSCP DOCD. 0528F RCMND FLW-UP 10 YRS DOCD. Modifiers: 1P * The named appointment provid er may or may not be the originator of this progress note, and it is not deemed complete until electronically signed by the appointment provider. Sign off status: Pending * Provider: Ashley Hawkins MD Date: Generated for Maribel pinzon/Aminta/Robitting on: 07/26/2024 03:15 PM EST
--- OUTSIDE RECORDS SUMMARY | 2025-05-26 15:15 | XMS_ITS | Clinical Summary ---
Author Organization [facility] Address [address] [facility] [address] [place] [address] Phone Care Team Providers Care Table Inspector Name Role Phone Vianca Moreno MD Primary Care Provider [phone] Allergies Active Allergy Reactions Criticality Noted Date [...] on patient's age to complete this topic IPV VACCINES Aged Out No longer eligi ble based on patient's age to complete this topic MENINGOCOCCAL VACCINES (ACWY) Aged Out No longer eligible based on patient's age to complete this topic MENINGOCOCCAL VACCINES (B) Aged Out N o longer eligible based on patient's age to complete this topic Medical Devices Not on file Insurance MEDICARE PART A & B coComment MEDEX SUPPLEMENT MEDICARE PART A & B coComment MEDEX SUPPLEMENT MEDICARE PART A & B coComment MEDEX SUPPLEMENT MEDICARE PART A & B coComment MEDEX SUPPLEMENT MEDICARE PART A & B BLUE CROSS MEDEX SUPPLEMENT MEDICARE PART A & B [employer] CROSS MEDEX SUPPLEMENT Care Teams Table Inspector Relationship Specialty Start Date End Date Vianca Moreno MD [address] [place] [address] PCP - General Internal Medicine 05/06/23 Additional Source Comments The information contained in this document represents components of the legal health record. It is not the complete legal health record.[facility]
--- OUTSIDE RECORDS SUMMARY | 2025-05-26 15:15 | XMS_ITS | Patient Health Record ---
Author Organization [facility] Address [address] [place] [address] Care Team Providers Care Retail Wireless Sales Consultant Name Role Phone Vianca Moreno MD Primary Care Provider Payam Aviles Unavailable [phone] Allergies Allergen (clinical drug ingredient) Drug/Non Drug Allergy documented on EMR Reaction Allergy Type Onset Date Status penicillin G Penicillin G Potassium Unknown Drug Allergy Active Reason For Referral No Information Medications Medication SIG (Take, Route, Frequency, Duration) Notes Start Date End Date Status Rosuvastatin Calcium 5 MG Tablet TAKE ONE TABLET BY MOUTH EVERY DAY Oral; Duration: 90 Active Prolia 60 MG/ML Solution Prefilled Syringe INJECT 60 MG SUBCUTANEOUSLY EVERY 6 MONTHS. Subcutaneous; Duration: 180 Acti ve amLODIPine Besylate 2.5 MG Tablet Oral; Duration: 90 Active Irbesartan 300 MG Tablet TAKE ONE TABLET BY MOUTH EVERY DAY Oral; Duration: 90 Active Vitamin D3 Active Immunizations Vaccine Route Administration Date Status Comme nts Influenza Unknown 05/08/2018 Administered Social History Tobacco Use: Social History Observation Description Date Details (start date - stop date) Never Smoker NA - NA Social History Drugs/Alcohol: Social Info Question Answer Notes Alcohol Screen Did you have a drink containing alcohol in the past year? Yes How often did you have a drink containing alcohol in the past year? Never (0 point) How many drinks did you have on a typical day when you were drinking in the past year? 1 or 2 drinks (0 point) How often did you have 6 or more drinks on one occasion in the past year? Never (0 point) Points 0 Interpretation Negative Tobacco Use: Social Info Question Answer Notes Tobacco Use/Smoking Patient is a nonsmoker Additional Details Category Social Info Options Details Miscellaneous: Marital status: Occupation: retired Section Notes: nonsmoker; occasional glass of wine nonsmoker; occasional glass of wine Problems Problem Type SNOMED Code ICD Code Onset Dates Problem Status W/U Status Risk Notes Problem Colon cancer screening (986764029) Colon cancer screening (Z12.11) Active confirmed Problem Screening for malignant neoplasm of colon (110756002) Encounter for screening for malignant neoplasm of colon (Z12.11) Active confirmed Problem History of adenomatous polyp of colon (271391687) History of adenomatous polyp of colon (Z86.010) Active confirmed Problem Pre-procedure evaluation check (495068277) Encounter for other preprocedural examination (Z01.818) Active confirmed Problem Diverticular disease of colon (240622871) Diverticulosis of large intestine without perforation or abscess without bleeding (K57.30) Active confirmed Problem Pre-procedure evaluation check (822425558) Pre-procedural examination (Z01.818) Active confirmed Plan Of Treatment Pending Test Test Name Order Date Pathology 04/15/2024 Future Test Test Name Order Date COLONOSCOPY 08/05/2018 COLONOSCOPY 12/19/2023 Insurance Providers Payer Name Payer Address Payer Phone Subscriber Number Group Number Insured Name Patient Relationship to Insured Coverage Start Date Coverage End Date MEDICARE OF [place] [address] [place] [address] [id number] MAYELA DIAZ Self - patient is the insured MEDEX ATTN CLAIMS [address] [place] [address] [id number] MAYELA DIAZ Self - patient is the insured Medical (General) History Medical History History ICD Code Denies [place],DM,CVA,Lung disease,renal dise ase Neg. screening colonoscopy in 01/2008--so me diverticulosis Hyperlipidemia Osteoporosis Colonoscopy 10/2018 1 small tubular adeno [place] Surgical History Surgery Date(Month/Year) Rotator cuff tear repair/right Tonsillectomy Partial shoulder replacement left 2020 Cataracts
== END 2025-05-26 07:45 | disposition home or self-care (01) ==
LOC: HO.MAMMO 07:44
PROVIDERS: PCP Internal Medicine; Visit Provider Internal Medicine
DX: Z12.31 Encounter for screening mammogram for malignant neoplasm of breast (principal)
CPT/HCPCS: 77063; 77067

== ENCOUNTER → 2025-05-26 08:00 | Outpatient (BNV) | payer MEDICARE, SELFPAY | PROVIDERS: PCP Internal Medicine; Visit Provider Internal Medicine | DX: Z12.31 Encounter for screening mammogram for malignant neoplasm of breast (principal) | CPT/HCPCS: 77063; 77067 ==

== ENCOUNTER 2025-06-16 08:06 | Outpatient (AMB) | payer MEDICARE, SELFPAY ==
[2025-06-16 08:10] VITALS: BP 130/72; PULSE 68; TEMP 37.1; O2SAT 97; BMI 23.7
--- NOTE | 2025-06-16 08:10 | AM.OFFWIN_ITS ---
Intake Vital Signs 06/16/25 08:10 Height 5 ft 4 in Weight 138 lb BMI 23.7 BP 130/72 Blood Pressure Location Rt brachial Position Sitting Pulse 68 Pulse Source Pulse Oximeter Temp 98.8 F Temp Source Oral Pulse Oximetry (%) 97 Oxygen Delivery Method Room Air Intake Visit Reasons: EP-pain, nauseas, discolor stool Intake Note: Patient presents c/o nausea, vomiting, light beige colored stool Patient Tobacco Use Status: Former Tobacco user Allergies Penicillins (PENICILLINS) Allergy (Intermediate, Verified 06/16/25 08:17) RASH atorvastatin (From Lipitor) Adverse Reaction (Intermediate, Verified 06/16/25 08:17) knee pain HPI HPI Comments History of Present Illness Details History of Present Illness - The patient is a 79 year old female pr esenting for evaluation of abdominal pain, nausea, and vomiting. - She reports feeling unwell for about a week, which prompted a visit to an urgent care on Saturday, where she was told her symptoms could be related to her gallbladder. - The patient describes the abdominal di scomfort as a crampy, traveling pain located in the middle and sometimes upper abdomen, which does not radiate to her back or scapula. - She recalls an acute episode of severe pain three weeks ago at a wedding after eating scallops and salmon, which she described as feeling like a heart attack; this pain was alleviated after taking Tums. - More recently, she experienced an epis ode of severe vomiting on a Saturday morning after having chicken and salad for dinner the night before. - Associated symptoms include gassiness, occasional sour taste in her mouth, and light, beige-colored stools. - She denies any reflux or diarrhea. - She has no melena or hematochezia. - She denies fever, chills, CP, SOB, dys uria, hematuria, or blood in the vomit. Physical Exam General: Cooperative, healthy appearing, comfortable, no acute distress and well developed Orientation: Patient oriented x3 Respiratory: Normal respiratory effort and able to speak in complete sentences. Clear to auscultation bilaterally. No w/r/r noted. Cardiovascular: Regular rate and rhythm. Normal S1 and S2. No m/r/g noted. GI: Normal to inspection. Hypoactive BS noted in all 4 quadrants. Soft to palpation and nontender in all 4 quadrants. Negative Rovsing noted. Negative Persaud's noted. No guarding or rebound tenderness noted. Negative CVA tenderness noted. No hepatomegaly noted. No masses or hernias appreciated. Skin: No rashes or lesions noted Patient was informed and verbally consented to the use of an ambient scribe for clinic note documentation during this visit. [facility] Medical History Hyponatremia Vitamin D deficiency Family history of anesthesia complication Osteoporosis Elevated cholesterol HTN (hypertension) Surgical History Hx of cataract extraction H/O shoulder replacement Hx of tubal ligation Hx of colonoscopy Hx of tonsillectomy Hx of rotator cuff surgery Family History Father Cancer Mother Hypertension Social History Household Members Other:: , 4 children, 7 grandsons, 1 granddaughter Housing: House Patient Tobacco Use Status: Former Tobacco user e-Cigarette/Vaping Use: Never Used Second Hand Smoke Exposure: No Advance Directives Date on File: 05/03/20 service: No Current occupational status: retired Cognitive needs: No Hearing needs: No Vision needs: No Review of Systems Const All systems reviewed & are unremarkable except as noted in HPI and below Physical Exam Vital Signs: Last Vital Signs Temp 98.8 F 06/16/25 08:10 Pulse 68 06/16/25 08:10 BP 130/72 06/16/25 08:10 Pulse Ox 97 06/16/25 08:10 Oxygen Delivery Method Room Air 06/16/25 08:10 BMI result Body Mass Index 23.7 Assessment & Plan Assessment & Plan (1) Abdominal pain: Code(s): R10.9 - Unspecified abdominal pain Qualifiers: Abdominal location: generalized Qualified Code(s): R10.84 - Generalized abdominal pain Plan 1. Abdominal Pain - The patient's presentation of intermittent, crampy, food-related abdominal pain with nausea, vomiting, and gassiness warrants further investigation. - Differential diagnoses considered include gallbladder disease such as cholelithiasis, peptic ulcer, and H. pylori infection. - The plan is to start with lab work before considering imaging studies. - Laboratory studies will include a CBC to check for infection, liver enzymes to evaluate gallbladder function, and an H. pylori test. - has f/u with PCP next week Orders: Orders Complete Blood Count Auto Diff Today R10.9 - Unspecified abdominal pain Comprehensive Met. Panel Today R10.9 - Unspecified abdominal pain H pylori Ag Stool Today R10.9 - Unspecified abdominal pain Coding Level of Care Code Est Pt Level 4 (04126) Diagnoses Generalized abdominal pain R10.84 Abdominal location: generalized
== END 2025-06-16 09:36 | disposition home or self-care (01) ==
PROVIDERS: PCP Internal Medicine; Visit Provider Physician Assistant Medical
DX: R10.84 Generalized abdominal pain (principal)

== ENCOUNTER → 2025-06-16 08:06 | Outpatient (BNVA) | payer MEDICARE, SELFPAY | PROVIDERS: PCP Internal Medicine; Visit Provider Physician Assistant Medical | DX: R10.84 Generalized abdominal pain (principal) | CPT/HCPCS: 99212 ==

== ENCOUNTER 2025-06-17 07:41 | Outpatient (REF) | payer MEDICARE, SELFPAY ==
[2025-06-17 10:20] LABS: MANUAL DIFF FLAG NO
[2025-06-17 10:25] LABS: Hematocrit 38.9 % (37.0-47.0); Hemoglobin 13.4 g/dl (12.0-16.0); Imm Gran Abs Auto 0.04 X10*3/uL (0.00-0.03); Imm Gran Pct Auto 0.6 % (0.0-0.4); Lymphocytes Absolute Auto 1.9 X10*3/uL (1.2-4.9); Mean Corpuscular HGB Conc 34.4 g/dl (31.0-35.0); Mean Corpuscular Hemoglobin 30.7 pg (27.0-33.0); Mean Corpuscular Volume 89.2 fL (80.0-98.0); NRBC Abs Auto 0.000 X10*3/uL (0.0-0.012); NRBC Pct Auto 0.0 /100WBC (0.0-0.2); Platelet Count 234 X10*3/uL (160-400); Red Blood Count 4.36 X10*6/uL (4.20-5.50); White Blood Count 6.4 X10*3/uL (4.8-10.8)
[2025-06-17 10:26] LABS: Hematocrit 39.0 % (37.0-47.0); Hemoglobin 13.2 g/dl (12.0-16.0); Imm Gran Abs Auto 0.05 X10*3/uL (0.00-0.03); Imm Gran Pct Auto 0.8 % (0.0-0.4); Lymphocytes Absolute Auto 1.9 X10*3/uL (1.2-4.9); Mean Corpuscular HGB Conc 33.8 g/dl (31.0-35.0); Mean Corpuscular Hemoglobin 30.1 pg (27.0-33.0); Mean Corpuscular Volume 89.0 fL (80.0-98.0); NRBC Abs Auto 0.000 X10*3/uL (0.0-0.012); NRBC Pct Auto 0.0 /100WBC (0.0-0.2); Platelet Count 232 X10*3/uL (160-400); Red Blood Count 4.38 X10*6/uL (4.20-5.50); White Blood Count 6.3 X10*3/uL (4.8-10.8)
[2025-06-17 11:14] LABS: Alanine Aminotransferase 40 U/L (0-31); Albumin Level 4.5 g/dL (3.5-5.0); Alkaline Phosphatase 60 U/L (39-117); Anion Gap 11 (12-20); Aspartate Amino Transferase 34 U/L (5-31); Blood Urea Nitrogen 14 mg/dL (9-16); Calcium 9.2 mg/dL (8.4-10.2); Carbon Dioxide 25 mmol/L (22-29); Chloride 103 mmol/L (96-108); Cholesterol 135 mg/dL (<200); Estimated Glomerular Filt Rate > 60; HDL Cholesterol 44 mg/dL (>40); Potassium 4.0 mmol/L (3.3-5.1); Sodium 135 mmol/L (135-145); Total Protein 7.0 g/dL (6.5-8.0); Triglycerides 77 mg/dL (<150)
[2025-06-21 11:38] LABS: Vitamin D 25-OH, D2 <4 ng/mL; Vitamin D 25-OH, D3 34 ng/mL; Vitamin D 25-OH, Total 34 ng/mL (30-100)
== END 2025-06-17 07:42 | disposition home or self-care (01) ==
LOC: HO.HMGCLDS 07:41
PROVIDERS: Absent Provider Physician Assistant Medical; PCP Internal Medicine; Visit Provider Internal Medicine
DX: I10 Essential (primary) hypertension (principal); M81.0 Age-related osteoporosis without current pathological fracture; E78.00 Pure hypercholesterolemia, unspecified; R10.9 Unspecified abdominal pain
CPT/HCPCS: 36415; 80053; 80061; 82306; 84443; 85025; 87338

== ENCOUNTER 2025-06-22 12:31 | Outpatient (AMB) | payer MEDICARE, SELFPAY ==
--- OUTSIDE RECORDS SUMMARY | 2023-05-06 17:52 | XMS_ITS | Encounter Summary ---
Author Organization [facility] Address [address] [place] [address] [place] [address] Phone Care Team Providers Care Customs Patrol Officer Name Role Phone Vianca Moreno MD Primary Care Provider [phone] Encounter Details Date Type Department Care Team (Late st Contact Info) Description 05/06/2023 6:52 PM EDT Hospital Encounter [facility] [address] [place] [address] [phone] Megan Trujillo, SUPERVISOR INSPECTION DEPARTMENT [address] [place] [address] [email or web address] Social History Tobacco Use Types Packs/Day Years [...] inetiology. Correlate with point tenderness. Megan Trujillo SUPERVISOR INSPECTION DEPARTMENT IMG XR LOWER EXTREMITY Final Result documented in this encounter Visit Diagnoses Not on filedocumented in this encounter Care Teams Customs Patrol Officer Relationship Specialty Start Date End Date Vianca Moreno MD [address] [place] [address] PCP - General Internal Medicine 05/06/23 documented as of this encounter Additional Source Comments The information contained in this document represents components of the legal health record. It is not the complete legal health record.[facility]
--- OUTSIDE RECORDS SUMMARY | 2024-04-15 02:30 | XMS_ITS ---
Author Organization [facility] Address [address] [place] [address] Care Team Providers Care Compliance Quality Performance Analyst Name Role Phone Vianca Moreno MD Primary Care Provider Unavaila Payam Morfin Unavailable [phone] REASON FOR VISIT screening,hx polyps Problems Problem Type SNOMED Code ICD Code Onset Dates Problem Status W/U Status Risk Notes Problem Diverticular disease of colon (383920600) Diverticulosis of large intestine without perforation or abscess without bleeding (K57.30) Active confirmed Encounters Encounter Location Date Provider Diagnosis [facility] [place] [address], [place] [phone] 04/15/2024 Payam Hawkins Colon cancer scree kaden [...] * MAYELA DIAZ BDOB:[birth year] (79 yo F)Acc No.[id number]:04/15/2024 COLON WITH MAC Patient: MAYELA TOPETE Provider: Ashley Hawkins MD :1945 A ge:78 Y S ex:Female Date:04/15/2024 Address:[address] [place] [address], [place], [place] Pcp:Vianca Moreno MD Subjective: * Chief Complaints: * S creening,hx polyps Assessment: * Assessment: 1. C olon cancer screening - Z12.11 (Primary) 2 . C olon polyps - K63.5? 3. D iverticulosis of large intestine without perforation or abscess without bleeding - K57.30 4 . O ther hemorrhoids - K64.8 Plan: * Procedure Codes: 4 5385 LESION REMOVAL COLONOSCOPY, [place]: [place] [address] COLONOSCOPY AND BIOPSY, Modifiers: 59 , [id number] INTRVL 3+YRS PTS CLNSCP [id number] RCMND FLW-UP 10 YRS DOCD, Modifiers: 1P Billing Information: * Procedure Codes: 19929 LESION REMOVAL COLONOSCOPY. [place]: [place] [address] COLONOSCOPY AND BIOPSY. Modifiers: 59, PT 0529F [...] MD Date: Generated for Maribel pinzon/Aminta/Robitting on: 08/23/2024 04:19 PM EST
--- OUTSIDE RECORDS SUMMARY | 2025-05-25 05:30 | XMS_ITS ---
Author Organization [facility] [place] Address [address] [place] [address] Care Team Providers Care Field Service Consultant Name Role Phone Vianca Moreno MD Primary Care Provider Unavaila Douglas Quintero Unavailable [phone] Encounters Encounter Location Date Provider Diagnosis [address] [address] 05/25/2025 Douglas Ponce Plan Of Treatment Next Appt Details Provider Name:Douglas Ponce , 09/07/2025 08:45:00 AM, [address] [place] [address], [address], Progress Notes * Anu COLÓN BDOB:[birth year] (79 yo F)Acc No.[id number]:05/25/2025 Progress Note Patient: Pelon Aun YUEN Provider: Mick Ponce DPM :1945 A ge:79 Y S ex:Female Date:05/25/2025 Address:[address] [place] [address] [phone] Pcp:Vianca Moreno MD Subjective: * Chief Complaints: * * Medical History: Objective: * Vitals: Assessment: Plan: * Treatment: * Images: * The named appointment provid er may or may not be the originator of this progress note, and it is not deemed complete until electronically signed by the appointment provider. Sign off status: Pending * Provider: Mick Ponce DPM Date: 07/25/2024 Generated for Maribel Zacarias on: 08/23/2024 04:19 PM EST
--- OUTSIDE RECORDS SUMMARY | 2025-06-01 05:45 | XMS_ITS ---
Author Organization [facility] Address [address] [place] [address] Care Team Providers Care Adjunct Nursing Faculty Name Role Phone Vianca Moreno MD Primary Care Provider Unavaila Douglas Quintero Unavailable [phone] Bangura Encounters Encounter Location Date Provider Diagnosis [address] [address] 06/01/2025 Douglas Ponce Plan Of Treatment Next Appt Details Provider Name:Douglas Ponce , 09/07/2025 08:45:00 AM, [address] [place], [address], Progress Notes * Anu COLÓN BDOB:[birth year] (79 yo F)Acc No.[id number]:06/01/2025 Progress Note Patient: Pelon YUENAnu Provider: Mick Ponce DPM :1945 A ge:79 Y S ex:Female Date:06/01/2025 Address:[address] [place] [address] [place] Pcp:Vianca Moreno MD Subjective: * Chief Complaints: * [address] Bangura. * Medical History: Objective: * Vitals: Assessment: Plan: * Treatment: * Images: * The named appointment provid er may or may not be the originator of this progress note, and it is not deemed complete until electronically signed by the appointment provider. Sign off status: Pending * Provider: Mick Ponce DPM Date: 08/01/2024 Generated for Maribel Zacarias on: 08/23/2024 04:19 PM EST
--- OUTSIDE RECORDS SUMMARY | 2025-06-18 05:00 | XMS_ITS ---
Author Organization [facility] Address [address] [place] [address] Care Team Providers Care Marine Extension Agent Name Role Phone Vianca Moreno MD Primary Care Provider Unavaila Douglas Quintero Unavailable [phone] Bangura Encounters Encounter Location Date Provider Diagnosis [address] [address] 06/18/2025 Douglas Ponce Plan Of Treatment Next Appt Details Provider Name:Douglas Ponce , 09/07/2025 08:45:00 AM, [address] [place], [address], Progress Notes * Anu COLÓN BDOB:[birth year] (79 yo F)Acc No.[id number]:06/18/2025 Progress Note Patient: Pelon YUENAnu Provider: Mick Ponce DPM :1945 A ge:79 Y S ex:Female Date:06/18/2025 Address:[address] [place] [address] [place] Pcp:Vianca Moreno MD Subjective: [...] Pending * Provider: Mick Ponce DPM Date: 08/19/2024 Generated for Maribel Zacarias on: 08/23/2024 04:19 PM EST
[2025-06-22 13:04] VITALS: BP 124/74; PULSE 80; RESP 16; TEMP 36.7; O2SAT 96; BMI 23.0
--- NOTE | 2025-06-22 13:04 | MHC.PC.OV ---
Vital Signs 06/22/25 13:04 Height 5 ft 4 in Weight 134 lb BMI 23.0 BP 124/74 Blood Pressure Location Lt brachial Position Sitting Respiration 16 Pulse 80 Pulse Source Pulse Oximeter Temp 98.0 F Temp Source Oral Pulse Oximetry (%) 96 Oxygen Delivery Method Room Air Intake Visit Reasons: follow up Intake Note: Pt is here today for a follow up visit. Allergies Penicillins (PENICILLINS) Allergy (Intermediate, Verified 06/22/25 13:09) RASH atorvastatin (From Lipitor) Adverse Reaction (Intermediate, Verified 06/22/25 13:09) knee pain tetracycline Adverse Reaction (Intermediate, Verified 06/22/25 13:39) Nausea Medication List - Last Reconciled 06/22/25 by Vianca Moreno MD amlodipine 2.5 mg PO BID cholecalciferol (vitamin D3) (Vitamin D3) 25 mcg PO QPM irbesartan 300 mg PO DAILY lidocaine 5% 1 patch topical DAILY loratadine (Claritin) 10 mg PO DAILY PRN odguspxbefnq-ktmfhlxo-pdjrtv 1 tab PO DAILY zwevtfmbkb-ouzavamct-amreqmwxy 10-250-12.5 mg 4 caps (4 x 10-250-12.5 mg) PO Q8H 14 days ondansetron HCl 4 mg PO Q8H Prolia (denosumab) 60 mg subcut [id number] NS rosuvastatin 5 mg PO DAILY Tobacco use date assessed: 06/22/25 Fall risk assessment: No Falls in past year Last assessed Fall Risk: 06/22/25 Dental Screening Dental Screen Date: 12/02/24 HPI follow up HPI Details Patient presents for the follow-up. She was diagnosed with H pylori infection and started on regiment with tetracycline but has not been able to tolerate it because of severe nausea diarrhea and abdominal pain. Hypertension is controlled on current medications. [facility] Medical History (Updated 06/22/25 @ 14:00 by Vianca Moreno MD) H. pylori infection Hyponatremia Vitamin D deficiency Family history of anesthesia complication Osteoporosis Elevated cholesterol HTN (hypertension) Surgical History Hx of cataract extraction H/O shoulder replacement Hx of tubal ligation Hx of colonoscopy Hx of tonsillectomy Hx of rotator cuff surgery Family History Father Cancer Mother Hypertension Social History Household Members Other:: , 4 children, 7 grandsons, 1 granddaughter Housing: House Patient Tobacco Use Status: Former Tobacco user e-Cigarette/Vaping Use: Never Used Second Hand Smoke Exposure: No Advance Directives Date on File: 05/03/20 service: No Current occupational status: retired Cognitive needs: No Hearing needs: No Vision needs: No Questionnaire Thrive Questionnaire Date Thrive assessed: 11/29/24 I am a: Patient What is your living situation today?: I have a steady place to live Within the past 12 months, did the food you bought not last and you didn't have the money to get more?: Never true Within the past 12 months, did you worry whether your food would run out before you got money to buy more?: Never true Do you have trouble paying for medicines?: No Do you have trouble getting transportation to medical appointments?: No Do you have trouble paying your heating and electricity bill?: No Do you have trouble taking care of your child, family member or friend?: No Do you have trouble with day-to-day activities such as bathing, preparing meals, shopping, managing finances, etc.?: No Are you currently unemployed and looking for a job?: No Are you interested in more education?: No Please select the resources that you would like help with: None Currently or been in a relationship where the following occur: No concerns reported THRIVE Score: 0 NASEEM-7 AMB Questionnaire NASEEM-7 Date NASEEM - 7 assessed: 12/02/24 Source: Developed by Drs. Payam Levine, Cher Kincaid, Dimitrios Valenzuela and colleagues, with an educational ameena from [employer]. Review of Systems Const All systems reviewed & are unremarkable except as noted in HPI and below Eyes Reports no additional complaints Card Reports no additional complaints Resp Reports no additional complaints GI Reports no additional complaints Reports no additional complaints Physical exam (Primary Care) Vital Signs: Last Vital Signs Temp 98.0 F 06/22/25 13:04 Pulse 80 06/22/25 13:04 Resp 16 06/22/25 13:04 BP 124/74 06/22/25 13:04 Pulse Ox 96 06/22/25 13:04 Oxygen Delivery Method Room Air 06/22/25 13:04 BMI result Body Mass Index 23.0 Tobacco/Smoking Status: Tobacco use Status Tobacco use date assessed 06/22/25 06/22/25 13:13 Patient Tobacco Use Status Former Tobacco user 06/22/25 13:04 e-Cigarette/Vaping Use Never Used 06/22/25 13:04 Thrive Assessment: Date of Thrive Assessment Date Thrive assessed 11/29/24 06/22/25 13:04 Currently or been in a relationship where the following occur: No concerns reported Const General: no acute distress HENMT Head: Yes normal to inspection Eyes General: appearance normal, both eyes and all related structures Resp Effort & Inspection: normal respiratory effort Auscultation: clear to auscultation bilaterally Cardio Rhythm: regular rhythm Heart sounds: S1 normal heart sound present and S2 normal heart sound present GI Inspection: Yes normal to inspection Palpation (GI): Soft to palpation Percussion: Yes normal to percussion Auscultation: normal bowel sounds Coding Level of Care Code Est Pt Level 4 (83855) Diagnoses HTN (hypertension) I10 H. pylori infection A04.8 Assessment & Plan Assessment & Plan (1) HTN (hypertension): Code(s): I10 - Essential (primary) hypertension Category: Medical Plan: Continue current medications (2) H. pylori infection: Comment: dxd 06/2025, intolerant to tetracycline based regimen, Code(s): A04.8 - Other specified bacterial intestinal infections Category: Medical Plan: Patient developed severe side effects from tetracycline. Despite listed penicillin allergy patient took amoxicillin in the past without side effects. Talicia(rifabutin triple regimen will be started for 2 weeks. Patient will continue pantoprazole for 2 weeks after the treatment and repeat H pylori stool antigen in 1 month Orders: Orders H pylori Ag Stool 1 Month R10.9 - Unspecified abdominal pain Medications: New vyfjbgpgvp-wuspfnnuh-odnkrcjos 10-250-12.5 mg must administer with a meal/food 4 caps (4 x 10-250-12.5 mg) PO Q8H 168 ea 0RF 14 days Discontinued pantoprazole (Protonix) Discontinued Reason: Doctor's Order 40 mg PO BID 14 days 28 tabs 0RF metronidazole Discontinued Reason: Doctor's Order 500 mg PO TID 14 days 42 tabs 0RF bismuth subsalicylate Discontinued Reason: Doctor's Order 2 tabs PO QID 14 days 112 tabs 0RF
--- OUTSIDE RECORDS SUMMARY | 2025-06-22 16:19 | XMS_ITS | Patient Health Record ---
Author Organization [facility] Address [address] [place] [address] Care Team Providers Care Financial Advisor Name Role Phone Vianca Moreno MD Primary Care Provider Payam Aviles Unavailable [phone] Allergies Allergen (clinical drug ingredient) Drug/Non Drug [...] Status Risk Notes Problem Colon cancer screening (808514540) Colon cancer screening (Z12.11) Active confirmed Problem Screening for malignant neoplasm of colon (032939401) Encounter for screening for malignant neoplasm of colon (Z12.11) Active confirmed Problem History of adenomatous polyp of colon (176171641) History of adenomatous polyp of colon (Z86.010) Active confirmed Problem Pre-procedure evaluation check (874920668) Encounter for other preprocedural examination (Z01.818) Active confirmed Problem Diverticular disease of colon (271027291) Diverticulosis of large intestine without perforation or abscess without bleeding (K57.30) Active confirmed Problem Pre-procedure evaluation check (734416720) Pre-procedural examination (Z01.818) Active confirmed Encounters Encounter Location Date Provider Diagnosis [facility] [address] [place] [address] 06/14/2025 Payam Hawkins Plan Of Treatment Pending Test Test Name Order Date Pathology 04/15/2024 Future Test Test Name Order Date COLONOSCOPY 08/05/2018 COLONOSCOPY 12/19/2023 Insurance Providers Payer Name Payer Address Payer Phone Subscriber Number Group Number Insured Name Patient Relationship to Insured Coverage Start Date Coverage End Date MEDICARE OF [place] [address] [place] [address] [id number] MAYELA DIAZ Self - patient is the insured MED[employer] ATTN CLAIMS [address] [place] [address] [id number] MAYELA DIAZ Self - patient is the insured Medical (General) History Medical History History ICD Code Denies [place],DM,CVA,Lung disease,renal dise ase Neg. screening colonoscopy in 01/2008--so me diverticulosis Hyperlipidemia Osteoporosis Colonoscopy 10/2018 1 small tubular adeno [place] Surgical History Surgery Date(Month/Year) Rotator cuff tear repair/right Tonsillectomy Partial shoulder replacement left 2020 Cataracts
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
--- OUTSIDE RECORDS SUMMARY | 2025-06-22 16:19 | XMS_ITS | Clinical Summary ---
Author Organization [facility] Address [address] [employer] [facility] [address] [place] [address] Phone Care Team Providers Care Vacuum Pan Tender Name Role Phone Vianca Moreno MD Primary Care Provider [phone] Allergies Active Allergy Reactions Criticality Noted Date [...] file Insurance MEDICARE PART A & B [employer]OSS MEDEX SUPPLEMENT MEDICARE PART A & B [employer] MEDEX SUPPLEMENT MEDICARE PART A & B [employer] MEDEX SUPPLEMENT MEDICARE PART A & B [employer] MEDEX SUPPLEMENT MEDICARE PART A & B [employer] MEDEX SUPPLEMENT MEDICARE PART A & B [employer] MEDEX SUPPLEMENT Care Teams Vacuum Pan Tender Relationship Specialty Start Date End Date Vianca Moreno MD [address] [place] [address] PCP - General Internal Medicine 05/06/23 Additional Source Comments The information contained in this document represents components of the legal health record. It is not the complete legal health record.[facility]
== END 2025-06-22 13:44 | disposition home or self-care (01) ==
LOC: HO.HMCC 12:31
PROVIDERS: PCP Internal Medicine; Visit Provider Internal Medicine
DX: I10 Essential (primary) hypertension (principal); A04.8 Other specified bacterial intestinal infections

== ENCOUNTER → 2025-06-22 12:31 | Outpatient (BNVA) | payer MEDICARE, SELFPAY | PROVIDERS: PCP Internal Medicine; Visit Provider Internal Medicine | DX: I10 Essential (primary) hypertension (principal); A04.8 Other specified bacterial intestinal infections; R10.9 Unspecified abdominal pain; Z79.899 Other long term (current) drug therapy | CPT/HCPCS: 99212 ==

== ENCOUNTER 2025-06-23 09:24 | Emergency (ER) | payer MEDICARE, SELFPAY ==
--- OUTSIDE RECORDS SUMMARY | 2023-05-06 17:52 | XMS_ITS | Encounter Summary ---
Author Organization [facility] Address [address] [facility] [address] [place] [phone] Phone Care Team Providers Care Policy Specialist Name Role Phone Vianca Moreno MD Primary Care Provider [phone] Encounter Details Date Type Department Care Team (Late st Contact Info) Description 05/06/2023 6:52 PM EDT Hospital Encounter [facility] [address] [place] [address] [phone] Megan Trujillo, RN INVASIVE [address] [place] [address] [email or web address] Social History Tobacco Use Types Packs/Day Years Used Date Smoking Tobacco: Never Assessed Education Answer Date Recorded Are you interested in more education? Not on fallon e 05/06/2023 Are you concerned about learning? Not on file 05/06/2023 No 05/06/2023 No 05/06/2023 Digital Access Answer Date Recorded No 05/06/2023 No 05/06/2023 Reliable internet access at home? Not on file 05/06/2023 Device with a working camera? Not on file Comments Unknown Sex and Gender Information Value Date Recorded Sex Assigned at Not on file Legal Sex Female 5:11 PM EDT Gender Identity Not on file Sexual Orientation Not on file documented as of this encounter Plan of Treatment Not on file documented as of this encounter Procedures Procedure Name Priority Date/Time Associated Diagnosis Comments XR ANKLE 3 OR MORE VIEWS (LEFT) Urgent/patient waiting 05/06/2023 7:05 PM EDT Closed fracture of distal lateral malleolus of left fibula, initial encounter documented in this encounter Results * XR ANKLE 3 OR MORE VIEWS (LEFT) (05/06/2023 7:05 PM EDT) Anatomical Region Laterality Modality Ankle Left Computed Radiogr aphy 05/06/2023 7:08 PM EDT Impressions 05/06/2023 7:13 PM EDT 1. A nondisplaced fracture involving the tip of the lateral malleolus with overlying soft tissue swelling. No dislocation involving the left ankle. 2. A nondisplaced fracture involving the base of fifth metatarsal bone with likely intra-articular extension. No dislocation. There is a small ossific opacity along the dorsal aspect of tarsal navicular bone, which likely represents an avulsion fracture versus less likely degenerative in etiology. Correlate with point tenderness. Narrative 05/06/2023 7:13 PM EDT XR ANKLE 3 OR MORE VIEWS (LEFT), XR FOOT 3 OR MORE VIEWS (LEFT) COMPARISON: None available. FINDINGS: Left ankle: There is a nondisplaced fracture involving the tip of lateral malleolus. The alignment of the ankle joint is maintained. The talar dome is intact. Soft tissue swelling overlying the lateral malleolus. Left foot: There is an acute, nondisplaced fracture at the base of fifth metatarsal bone likely extending into the tarsometatarsal articulation. No dislocation. An ossific opacity seen along the dorsal aspect of tarsal navicular bone, indeterminate. Rest of the included bones are intact. No significant soft tissue abnormality. Procedure Note Guilherme Castle MD, MBBS - 05/06/2023 XR ANKLE 3 OR MORE VIEWS (LEFT), XR FOOT 3 OR MORE VIEWS (LEFT) COMPARISON: None available. FINDINGS: Left ankle: There is a nondisplaced fracture involving the tip of lateralmalleolus. The alignment of the ankle joint is maintained. The talar domeis intact. Soft tissue swelling overlying the lateral malleolus. Left foot: There is an acute, nondisplaced fracture at the base of fifthmetatarsal bone likely extending into the tarsometatarsal articulation. Nodislocation. An ossific opacity seen along the dorsal aspect of tarsalnavicular bone, indeterminate. Rest of the included bones are intact. Nosignificant soft tissue abnormality. IMPRESSION: 1. A nondisplaced fracture involving the tip of the lateral malleoluswith overlying soft tissue swelling. No dislocation involving the leftankle. 2. A nondisplaced fracture involving the base of fifth metatarsal bonewith likely intra-articular extension. No dislocation. There is a smallossific opacity along the dorsal aspect of tarsal navicular bone, whichlikely represents an avulsion fracture versus less likely degenerative inetiology. Correlate with point tenderness. Megan Trujillo RN INVASIVE IMG XR LOWER EXTREMITY Final Result documented in this encounter Visit Diagnoses Not on filedocumented in this encounter Care Teams Policy Specialist Relationship Specialty Start Date End Date Vianca Moreno MD [address] [place] [address] PCP - General Internal Medicine 05/06/23 documented as of this encounter Additional Source Comments The information contained in this document represents components of the legal health record. It is not the complete legal health record.[facility]
--- OUTSIDE RECORDS SUMMARY | 2024-04-15 02:30 | XMS_ITS ---
Author Organization [facility] Address [address] [place] [address] Care Team Providers Care Grants Director Name Role Phone Vianca Moreno MD Primary Care Provider Unavaila Payam Morfin Unavailable [phone] REASON FOR VISIT screening,hx polyps Problems Problem Type SNOMED Code ICD Code Onset Dates Problem Status W/U Status Risk Notes Problem Diverticular disease of colon (940100720) Diverticulosis of large intestine without perforation or abscess without bleeding (K57.30) Active confirmed Encounters Encounter Location Date Provider Diagnosis [facility] [place] [address], [place] [phone] 04/15/2024 Payam Hawkins Colon cancer scree kaden [...] * MAYELA DIAZ BDOB:[birth year] (79 yo F)Acc No.[id number]:04/15/2024 COLON WITH MAC Patient: MAYELA TOPETE Provider: Ashley Hawkins MD :1945 A ge:78 Y S ex:Female Date:04/15/2024 Address:[address] [place] [address], [place], [place] Pcp:Vianca Moreno MD Subjective: * Chief Complaints: * S creening,hx polyps Assessment: * Assessment: 1. C olon cancer screening - Z12.11 (Primary) 2 . C olon polyps - K63.5? 3. D iverticulosis of large intestine without perforation or abscess without bleeding - K57.30 4 . O ther hemorrhoids - K64.8 Plan: * Procedure Codes: 4 5385 LESION REMOVAL COLONOSCOPY, [place]ifiers: [place] [address] COLONOSCOPY AND BIOPSY, Modifiers: 59 , [id number] INTRVL 3+YRS PTS CLNSCP [id number] RCMND FLW-UP 10 YRS DOCD, Modifiers: 1P Billing Information: * Procedure Codes: 64407 LESION REMOVAL [place]OS[place] [address] COLONOSCOPY AND BIOPSY. Modifiers: 59, PT 0529F INTRVL 3+YRS PTS CLNSCP DOCD. 0528F RCMND FLW-UP 10 YRS DOCD. Modifiers: 1P * The named appointment provid er may or may not be the originator of this progress note, and it is not deemed complete until electronically signed by the appointment provider. Sign off status: Pending * Provider: Ashley Hawkins MD Date: 1 Generated for Maribel pinzon/Aminta/Robitting on: 08/24/2024 02:47 PM EST
--- OUTSIDE RECORDS SUMMARY | 2025-05-25 05:30 | XMS_ITS ---
Author Organization [facility] [place] Address [address] [place] [address] Care Team Providers Care Chalk Extruding Machine Operator Name Role Phone Vianca Moreno MD Primary Care Provider Unavaila Douglas Quintero Unavailable [phone] Encounters Encounter Location Date Provider Diagnosis [address] [address] 05/25/2025 Douglas Ponce Plan Of Treatment Next Appt Details Provider Name:Douglas Ponce , 09/07/2025 08:45:00 AM, [address] [place] [address], [address], Progress Notes * Anu COLÓN BDOB:[birth year] (79 yo F)Acc No.[id number]:05/25/2025 Progress Note Patient: Pelon Anu YUEN Provider: Mick Ponce DPM :1945 A ge:79 Y S ex:Female Date:05/25/2025 Address:[address] [place] [address] [place]-[phone] Pcp:Vianca Moreno MD Subjective: [...] Date: 07/25/2024 Generated for Maribel Zacarias on: 08/24/2024 02:47 PM EST
--- OUTSIDE RECORDS SUMMARY | 2025-06-01 05:45 | XMS_ITS ---
Author Organization [facility] Address [address] [place] [address] Care Team Providers Care Purchasing Analyst Name Role Phone Vianca Moreno MD Primary Care Provider Unavaila Douglas Quintero Unavailable [phone] Bangura Encounters Encounter Location Date Provider Diagnosis [address] [address] 06/01/2025 Douglas Ponce Plan Of Treatment Next Appt Details Provider Name:Douglas Ponce , 09/07/2025 08:45:00 AM, [address] [place], [address], Progress Notes * Anu COLÓN BDOB:[birth year] (79 yo F)Acc No.[id number]:06/01/2025 Progress Note Patient: Pelon YUENAnu Provider: Mick Ponce DPM :1945 A ge:79 Y S ex:Female Date:06/01/2025 Address:[address] [place] [address] [phone] Pcp:Vianca Moreno MD Subjective: [...] Date: 08/01/2024 Generated for Maribel Zacarias on: 08/24/2024 02:47 PM EST
--- OUTSIDE RECORDS SUMMARY | 2025-06-18 05:00 | XMS_ITS ---
Author Organization [facility] Address [address] [place] [address] Care Team Providers Care Tire Design Engineer Name Role Phone Vianca Moreno MD Primary Care Provider Unavaila Douglas Quintero Unavailable [phone] Bangura Encounters Encounter Location Date Provider Diagnosis [address] [address] 06/18/2025 Douglas Ponce Plan Of Treatment Next Appt Details Provider Name:Douglas Ponce , 09/07/2025 08:45:00 AM, [address] [place], [address], Progress Notes * Anu COLÓN BDOB:[birth year] (79 yo F)Acc No.[id number]:06/18/2025 Progress Note Patient: Pelon YUENAnu Provider: Mick Ponce DPM :1945 A ge:79 Y S ex:Female Date:06/18/2025 Address:[address] [place] [address] [phone] Pcp:Vianca Moreno MD Subjective: [...] Date: 08/19/2024 Generated for Maribel Zacarias on: 08/24/2024 02:47 PM EST
[2025-06-23 09:51] VITALS: BP 132/67; PULSE 80; O2SAT 95
[2025-06-23 10:28] VITALS: BP 155/76; PULSE 77; RESP 13; O2SAT 96; BMI 23.2
--- NOTE | 2025-06-23 10:33 | ED_ITS ---
HPI - General Adult General Chief complaint: General Medical Stated complaint: DIARRHEA,?D/T MED PER EMS Time Seen by Provider: 06/23/25 10:05 Source: patient and family (Son, Dean) Mode of arrival: ambulatory Limitations: no limitations History of Present Illness ED Provider: Dr. Seferino Condon HPI narrative: 79-year-old female with a history of hypertension, hyperlipidemia who presents emergency department for evaluation loose liquidy stools x5 days. The patient states that several weeks prior , she you had a change in the color of her stool (there very pale) and abdominal pain. She was seen in urgent care clinic and tested positive for H pylori. The patient was started on H pylori regimen which included tetracycline 4 times a day. She states that when she has taken tetracycline the past it has given her diarrhea. Patient states that she has been having 4-6 loose diarrheal stools per day with no blood in the stools. She was feeling dizzy, lightheaded, weak and fatigued. She states she has lost her appetite. She has also had very poor fluid intake since onset of the diarrhea. She denied fever, chills, sore throat, cough, chest pain, shortness of breath, frequency, urgency or dysuria. patient denies having heartburn like symptoms, she does not use antacids on a regular basis, she has not had frequent episodes of abdominal pain. Related Data Home Medications ?Medication ?Instructions ?Recorded ?Confirmed cholecalciferol (vitamin D3) 25 25 mcg PO QPM 04/27/20 06/22/25 mcg (1,000 unit) tablet (Vitamin D3) loratadine 10 mg tablet (Claritin) 10 mg PO DAILY PRN Nasal Congestion 04/27/20 06/22/25 pphdkljuipds-gptvaefu-fuuhhk tablet 1 tab PO DAILY 06/22/25 Previous Rx's ?Medication ?Instructions ?Recorded lidocaine 5 % topical patch 1 patch topical DAILY #15 ea 01/25/23 rosuvastatin 5 mg tablet 5 mg PO DAILY #90 tabs 10/01 irbesartan 300 mg tablet 300 mg PO DAILY #90 tabs Prolia 60 mg/mL subcutaneous 60 mg subcut [id number] #1 mL 12/02/24 syringe (denosumab) amlodipine 2.5 mg tablet 2.5 mg PO BID #180 tabs 03/09 09/29 ondansetron HCl 4 mg tablet 4 mg PO Q8H #30 tabs 06/21 omeprazole 10 mg-amox 250 4 cap (4 x 10-250-12.5 mg) P O Q8H 06/22/25 mg-rifabutin 12.5 mg capsule 14 days #168 ea immed,delay rel Allergies Allergy/AdvReac Type Severity Reaction Status Date / Time Penicillins (PENICILLINS) Allergy Intermediate RASH Verified 06/23/25 10:29 atorvastatin (From Lipitor) AdvReac Intermediate knee pain Verified 06/23/25 10:29 tetracycline AdvReac Intermediate Nausea Verified 06/23/25 10:29 Review of Systems 2 Review of Systems: Yes all other systems are reviewed and are negative [facility] Past Medical History [facility] Narrative: Social history: She denies tobacco use. She rarely drinks alcohol. Medical History (Updated 06/24/25 @ 00:00 by Laz Reveles) H. pylori infection Hyponatremia Vitamin D deficiency Family history of anesthesia complication Osteoporosis Elevated cholesterol HTN (hypertension) Surgical History Hx of cataract extraction H/O shoulder replacement Hx of tubal ligation Hx of colonoscopy Hx of tonsillectomy Hx of rotator cuff surgery Family History Family History Father Cancer Mother Hypertension Social History Social History Household Members Other:: , 4 children, 7 grandsons, 1 granddaughter Housing: House Patient Tobacco Use Status: Former Tobacco user e-Cigarette/Vaping Use: Never Used Second Hand Smoke Exposure: No Advance Directives: Yes Advance Directives on File: Yes Advance Directives Date on File: 05/03/20 service: No Current occupational status: retired Cognitive needs: No Hearing needs: No Vision needs: No Physical Exam ED Vital Signs: Vital Signs - 24 hr 06/23/25 10:28 Pulse Rate 77 Respiratory Rate 13 Blood Pressure 155/76 H Pulse Oximetry 96 Oxygen Delivery Method Room Air BMI result Body Mass Index 23.2 Vital signs revealed an elevated blood pressure of 155/76 Exam: General: Awake, alert in no distress Head: Normocephalic, atraumatic EENT: PERRL, sclera and conjunctiva are normal, mouth with no erythema or exudates Neck: Supple, no adenopathy Lung: breath sounds symmetric, no wheezing, no rales and no rhonchi Chest: symmetric movement, nontender Heart: regular rate and rhythm, normal S1, S2 no murmurs or rubs Abdomen: soft, non-tender, nondistended, normal bowel sounds Back: no vertebral tenderness, no CVAT Extremities: no deformities, moves all extremities symmetrically, no edema Neuro: Awake, alert, oriented, normal speech, cranial nerves 2-12 intact, moves all extremities symmetrically Psych: Pleasant, cooperative Medications Administered Discontinued Medications Generic Name Dose Route Start Last Admin Trade Name Freq PRN Reason Stop Dose Admin Sodium Chloride 1,000 mls @ 999 mls/hr 06/23/25 10:27 06/23/25 11:55 Ns IV 06/23/25 11:27 Infused .Q1H1M STA Infusion Medical Decision Making Medical Decision Making MDM Narrative: 79-year-old female with a history of hypertension, hyperlipidemia who presents emergency department for evaluation loose liquidy stools x5 days, loss of appetite with poor food and fluid intake, tiredness and fatigue. Patient was started on a H pylori regimen which included tetracycline 4 times a day which the patient believes is causing her diarrhea. Vital signs were normal . Physical examination was unremarkable. Differential diagnosis: Includes but is not limited to Viral syndrome, COVID- 19, influenza, C difficile colitis, adverse reaction to tetracycline, anemia, electrolyte abnormalities Course: My independent interpretation of patient's laboratory evaluation is as follows: Sodium low 133. Bicarb low 11. AST elevated 33. low sodium bicarb her consistent with her diarrheal illness. At this time, I believe the patient's diarrhea is related to her tetracycline not caused by a viral illness. The patient was treated with normal saline IV x1 L and she did feel better after this treatment. I do not think that the patient has an ulcer, gastritis or significant pepper ulcer disease based on her clinical history and I did discuss this with her. I advised the patient to stop taking tetracycline. The patient states that she is going to follow-up with [facility] to determine if she needs treatment for H pylori. I also advised her to talk to her PCP regarding the her positive H pylori and my recommendation to discontinue this regimen at this time. Lab Data 06/23/25 10:42 06/23/25 10:42 Labs: Lab Results 06/23/25 Range/Units 10:42 WBC 9.8 (4.8-10.8) X10*3/uL RBC 4.27 (4.20-5.50) X10*6/uL Hgb 13.2 (12.0-16.0) g/dl Hct 38.6 (37.0-47.0) % MCV 90.4 (80.0-98.0) fL MCH 30.9 (27.0-33.0) pg MCHC 34.2 (31.0-35.0) g/dl RDW 12.3 (11.0-16.0) % Plt Count 205 (160-400) X10*3/uL MPV 11.8 (9.4-12.3) fL Immature Gran % (Auto) 0.3 (0.0-0.4) % Neut % (Auto) 82.3 H (45-73) % Lymph % (Auto) 9.8 L (20-40) % [place] % (Auto) 7.0 (2-11) % Eos % (Auto) 0.3 (0-4) % Baso % (Auto) 0.3 (0-2) % Lymph # (Auto) 1.0 L (1.2-4.9) X10*3/uL [place] # (Auto) 0.7 (0.1-1.2) X10*3/uL Eos # (Auto) 0.0 (0.0-0.4) X10*3/uL Baso # (Auto) 0.0 (0.0-0.2) X10*3/uL Abs Immat Gran (auto) 0.03 (0.00-0.03) X10*3/uL Absolute Neuts (auto) 8.1 (2.0-8.3) x10*3/uL Absolute Nucleated RBC 0.000 (0.0-0.012) X10*3/uL Nucleated RBC % (auto) 0.0 (0.0-0.2) /100WBC Sodium 133 L (135-145) mmol/L Potassium 3.9 (3.3-5.1) mmol/L Chloride 100 (96-108) mmol/L Carbon Dioxide 26 (22-29) mmol/L Anion Gap 11 L (12-20) BUN 10 (9-16) mg/dL Creatinine 0.59 (0.5-1.4) mg/dL Estim Creat Clear Calc 67.8 Estimated GFR > 60 Random Glucose 108 (60-115) mg/dL Calcium 9.2 (8.4-10.2) mg/dL Total Bilirubin 0.7 (0.0-1.0) mg/dL AST 33 H (5-31) U/L ALT 28 (0-31) U/L Alkaline Phosphatase 64 (39-117) U/L Total Protein 7.2 (6.5-8.0) g/dL Albumin 4.6 (3.5-5.0) g/dL Lipase 22 (8-78) U/L Discharge Plan Discharge Clinical Impression: Diarrhea, Weakness Patient Disposition: Home, Self-Care Additional Instructions: Your blood work was unremarkable except for a low bicarb which was caused by your diarrhea. Your diarrhea is most likely caused by the antibiotic tetracycline that you are taking. At this time, I do not think that you have a stomach ulcer, peptic ulcer disease or gastritis (inflammation in his stomach) caused by H pylori infection therefore I recommended that you stop taking the antibiotics and the omeprazole that was prescribed for you. I want you to follow-up with your chemical lab technician to determine if you need treatment for H pylori. Continue taking your other medications as prescribed by your providers. Make sure that you increase the amount of fluid that you drink over the next 24 hours to replace the fluid that your losing from diarrhea. It is important that you eat food as well, if you have no appetite, you can try a PETTY diet (bananas, rice, applesauce, tea and toast) for 24 hours. Follow-up with your doctor in 2 days. Please return to the emergency department if your symptoms get worse or if you develop any symptoms that are concerning to you. Prescriptions: No Action rosuvastatin 5 mg tablet 5 mg PO DAILY Qty: 90 3RF irbesartan 300 mg tablet 300 mg PO DAILY Qty: 90 3RF amlodipine 2.5 mg tablet 2.5 mg PO BID Qty: 180 3RF ondansetron HCl 4 mg tablet 4 mg PO Q8H Qty: 30 0RF loratadine [Claritin] 10 mg Tablet 10 mg PO DAILY PRN (Reason: Nasal Congestion) Centrum Silver Tablet 1 tab PO DAILY cholecalciferol (vitamin D3) [Vitamin D3] 25 mcg (1,000 unit) Tablet 25 mcg PO QPM lidocaine 5 % adhesive patch,medicated 1 patch topical DAILY Qty: 15 0RF Rx Instructions: leave on most painful area for up to 12 hrs Prolia 60 mg/mL syringe 60 mg subcut [id number] Qty: 1 1RF ndyfcimefe-ywqbtcafx-yfuuolilr 10-250-12.5 mg capsule,IR - delay rel,biphase 4 cap PO Q8H 14 Days Qty: 168 0RF Rx Instructions: must administer with a meal/food Interventions: ED Discharge Assessment Last Done: 06/23/25 13:20 Discharge Date/Time: 06/23/25 14:24 Print Language: Bengali
--- NOTE | 2025-06-23 10:33 | PC.NURSE ---
Pt roomed and placed on full monitor- VSS SR no ectopy still. No complaints at this time.
[2025-06-23 10:48] LABS: MANUAL DIFF FLAG NO
[2025-06-23 10:54] LABS: Hematocrit 38.6 % (37.0-47.0); Hemoglobin 13.2 g/dl (12.0-16.0); Imm Gran Abs Auto 0.03 X10*3/uL (0.00-0.03); Imm Gran Pct Auto 0.3 % (0.0-0.4); Lymphocytes Absolute Auto 1.0 X10*3/uL (1.2-4.9); Mean Corpuscular HGB Conc 34.2 g/dl (31.0-35.0); Mean Corpuscular Hemoglobin 30.9 pg (27.0-33.0); Mean Corpuscular Volume 90.4 fL (80.0-98.0); NRBC Abs Auto 0.000 X10*3/uL (0.0-0.012); NRBC Pct Auto 0.0 /100WBC (0.0-0.2); Platelet Count 205 X10*3/uL (160-400); Red Blood Count 4.27 X10*6/uL (4.20-5.50); White Blood Count 9.8 X10*3/uL (4.8-10.8)
[2025-06-23 11:05] LABS: Alanine Aminotransferase 28 U/L (0-31); Albumin Level 4.6 g/dL (3.5-5.0); Alkaline Phosphatase 64 U/L (39-117); Anion Gap 11 (12-20); Aspartate Amino Transferase 33 U/L (5-31); Blood Urea Nitrogen 10 mg/dL (9-16); Calcium 9.2 mg/dL (8.4-10.2); Carbon Dioxide 26 mmol/L (22-29); Chloride 100 mmol/L (96-108); Creatinine Clr Calc Pharmacy 67.8; Estimated Glomerular Filt Rate > 60; Lipase 22 U/L (8-78); Potassium 3.9 mmol/L (3.3-5.1); Sodium 133 mmol/L (135-145); Total Protein 7.2 g/dL (6.5-8.0)
[2025-06-23 12:41] VITALS: BP 138/68; PULSE 71; RESP 12; TEMP 36.8; O2SAT 96
[2025-06-23 13:20] VITALS: BP 147/91; PULSE 75; RESP 14; TEMP 37.2; O2SAT 97
[2025-06-23 13:47] VITALS: BP 147/91; PULSE 75; RESP 14; TEMP 37.2; O2SAT 97
[2025-06-23 13:53] VITALS: BP 147/91; PULSE 75; RESP 14; TEMP 37.2; O2SAT 97
--- OUTSIDE RECORDS SUMMARY | 2025-06-23 14:47 | XMS_ITS | Patient Health Record ---
Author Organization [facility] Address [address] [place] [address] Care Team Providers Care Circuit Board Assembler Name Role Phone Vianca Moreno MD Primary Care Provider Payam Aviles Unavailable [phone] Allergies Allergen (clinical drug ingredient) Drug/Non Drug [...] Status Risk Notes Problem Colon cancer screening (007905207) Colon cancer screening (Z12.11) Active confirmed Problem Screening for malignant neoplasm of colon (318999055) Encounter for screening for malignant neoplasm of colon (Z12.11) Active confirmed Problem History of adenomatous polyp of colon (917092301) History of adenomatous polyp of colon (Z86.010) Active confirmed Problem Pre-procedure evaluation check (564549079) Encounter for other preprocedural examination (Z01.818) Active confirmed Problem Diverticular disease of colon (844945882) Diverticulosis of large intestine without perforation or abscess without bleeding (K57.30) Active confirmed Problem Pre-procedure evaluation check (868462118) Pre-procedural examination (Z01.818) Active confirmed Encounters Encounter Location Date Provider Diagnosis [facility] [address] [place] [address] 06/14/2025 Payam Hawkins Plan Of Treatment Pending Test Test Name Order Date Pathology 04/15/2024 Future Test Test Name Order Date COLONOSCOPY 08/05/2018 COLONOSCOPY 12/19/2023 Insurance Providers Payer Name Payer Address Payer Phone Subscriber Number Group Number Insured Name Patient Relationship to Insured Coverage Start Date Coverage End Date MEDICARE OF [place] [address] [place] [address] [phone] [id number] MAYELA DIAZ Self - patient is the insured [employer] ATT[employer] CLAIMS [address] [place] [address] [id number] MAYELA DIAZ Self - patient is the insured Medical (General) History Medical History History ICD Code Denies VT,DM,CVA,Lung disease,renal dise ase Neg. screening colonoscopy in 01/2008--so me diverticulosis Hyperlipidemia Osteoporosis Colonoscopy 10/2018 1 small tubular adeno [place] Surgical History Surgery Date(Month/Year) Rotator cuff tear repair/right Tonsillectomy Partial shoulder replacement left 2020 Cataracts
--- OUTSIDE RECORDS SUMMARY | 2025-06-23 14:47 | XMS_ITS | Patient Health Record ---
Author [facility] Address [address] [place] [address] Care Team Providers Care Stainless Steel Finisher Name Role Phone Vianca Moreno MD Primary Care Provider Douglas Bagley Unavailable [phone] Allergies Allergen (clinical drug ingredient) Drug/Non Drug [...] Status W/U Status Risk Notes Problem Onychomycosis (752961948) Onychomycosis (B35.1) Active confirmed Vital Signs Blood pressure diastolic 70 mm Hg 05/21/2025 Height 5 ft 3 in in 05/21/2025 Blood pressure systolic 123 mm Hg 05/21/2025 Weight 130 lbs 05/21/2025 BMI 23.03 kg/m2 05/21/2025 Procedures Procedure Date Ordered Date Performed Result Body Sit e 94152-ZTSOOPK NAIL, 6 OR MORE 11/03/2024 N/A 23136-DGPZJQR NAIL, 6 OR MORE 02/09/2025 N/A 56541-MSSPJMQ NAIL, 6 OR MORE 05/21/2025 N/A Encounters Encounter Location Date Provider Diagnosis [address] [address] 11/03/2024 Douglas Rosario Pain in right toe(s) M79.674 ; Onychomycosis B35.1 and Pain in left toe(s) M79.[address] [address] 02/09/2025 Douglas Rosario Pain in right toe(s) M79.674 ; Onychomycosis B35.1 and Pain in left toe(s) M79.[address] [address] 05/21/2025 Douglas Rosario Pain in right toe(s) M79.674 ; Onychomycosis B35.1 and Pain in left toe(s) M79.[address] [address] 02/10/2025 Douglas Ponce Assessments Encounter Date Diagnosis [...] Treatment Pending Test Test Name Order Date 60399-XYSFUIS NAIL, 6 OR MORE 11/03/2024 33442-XXYZNIB NAIL, 6 OR MORE 02/09/2025 05889-RODCXWO NAIL, 6 OR MORE 05/21/2025 53247-KPCNPEP NAIL, 1-5 05/06/2012 99720-NONNABH NAIL, 1-5 08/06/2012 24092-IDMWTVM NAIL, 1-5 11/03/2012 20967-Ehpbosxy Plate 11/03/2012 29330-Sivwvahj Plate 02/18/2013 44791-Jslscsez Plate 05/27/2013 87175-Rdqnmbnw Plate 02/02/2016 57381-Oahyazrf Plate 02/16/2016 23793-Rqbdbzgd Plate 08/06/2012 36483-Jfpndqnp Plate 05/06/2012 Next Appt Details Provider Name:Douglas Patten Rosario , 09/07/2025 08:45:00 AM, [address] [place], [address], Insurance Providers Payer Name Payer Address Payer Phone Subscriber Number Group Number Insured Name Patient Relationship to Insured Coverage Start Date Coverage End Date Medicare [facility] [address] [place] [address] [id number] Anu Colón Self - patient is the insured [employer] Blue Shield [address] [place] [address] [phone] [id number] Anu Colón Self - patient is the insured Medical (General) History Medical History History ICD Code chicken pox hypercholesterolemia measles sinus conditions covid-19 High blood pressure chronic sinusitis Mumps Surgical History Surgery Date(Month/Year) tubal ligation 1981 rotator cuff tear repair-right 03/2013 partial shoulder replacement 2020 Hospitalization History Reason Date(Month/Year) [facility] [place] - damaged a vertabre 0 01/25/23
--- OUTSIDE RECORDS SUMMARY | 2025-06-23 14:48 | XMS_ITS | Clinical Summary ---
Author Organization [facility] Address [address] [employer] [facility] [address] [place] [address] Phone Care Team Providers Care Advertising Agency Manager Name Role Phone Vianca Moreno MD Primary Care Provider [phone] Allergies Active Allergy Reactions Criticality Noted Date [...] file Insurance MEDICARE PART A & B [employer] MED[employer] SUPPLEMENT MEDICARE PART A & B [employer] MEDEX SUPPLEMENT MEDICARE PART A & B [employer] MEDEX SUPPLEMENT MEDICARE PART A & B [employer] MEDEX SUPPLEMENT MEDICARE PART A & B [employer] MEDEX SUPPLEMENT MEDICARE PART A & B [employer] MEDEX SUPPLEMENT Care Teams Advertising Agency Manager Relationship Specialty Start Date End Date Vianca Moreno MD [address] [place] [address] PCP - General Internal Medicine 05/06/23 Additional Source Comments The information contained in this document represents components of the legal health record. It is not the complete legal health record.[facility]
== END 2025-06-23 14:24 | disposition home or self-care (01) ==
PROVIDERS: Emergency Provider Emergency Medicine Emergency Medical Services; PCP Internal Medicine
DX: R19.7 Diarrhea, unspecified (principal); R53.1 Weakness; I10 Essential (primary) hypertension; E78.00 Pure hypercholesterolemia, unspecified; Z87.891 Personal history of nicotine dependence
CPT/HCPCS: 36415; 80053; 83690; 85025; 96360; 99284